=== PATIENT | male | born 1950 | race Caucasian/White ===

== ENCOUNTER 2017-03-16 08:36 | Inpatient (IN) | payer MEDICARE, MEDICAID ==
[2017-03-16 08:36] VITALS: BMI 31.6
[2017-03-16 09:25] LABS: BASO # 0.1 K/uL (0.0-0.2); BASO % 0.6 % (0.0-2.0); EOS % 10.2 % (0.0-4.0); HEMATOCRIT 38.7 % (35.0-51.0); LYMPH # 0.5 K/uL (1.0-4.3); LYMPH % 5.6 % (20.0-40.0); MEAN CELL VOLUME 75.7 fL (80.0-94.0); MEAN CORPUSCULAR HEMOGLOBIN 23.9 pg (27.0-31.0); MEAN CORPUSCULAR HGB CONC 31.6 g/dL (33.0-37.0); MEAN PLATELET VOLUME 9.2 fL (7.2-11.7); MONO # 0.8 K/uL (0.0-0.8); MONO % 8.6 % (0.0-10.0); PLATELET COUNT 198 K/uL (130-400); RED CELL DISTRIBUTION WIDTH 16.6 % (11.5-14.5); WHITE BLOOD COUNT 9.5 K/uL (4.8-10.8)
[2017-03-16 09:33] LABS: CHLORIDE 103 mmol/L (98-107); POTASSIUM 3.8 mmol/L (3.6-5.2); SODIUM 136 mmol/L (132-148)
[2017-03-16 09:35] LABS: AST/SGOT 22 U/L (17-59); BILIRUBIN,TOTAL 0.5 mg/dL (0.2-1.3); CARBON DIOXIDE 19 mmol/L (22-30); GFR AFRICAN-AMERICAN > 60
[2017-03-16 09:36] LABS: ALB/GLOB RATIO 1.3 (1.0-2.1); ALKALINE PHOSPHATASE 57 U/L (38-126); ALT/SGPT 42 U/L (21-72); BLOOD UREA NITROGEN 38 mg/dL (9-20); CALCIUM 8.6 mg/dl (8.6-10.4); GLUCOSE,RANDOM 199 mg/dL (75-110); TOTAL PROTEIN 6.5 g/dL (6.3-8.3)
[2017-03-16] MEDS ORDERED: Albuterol-Ipratrop 3 mg / 0.5 (3 ml) UD INH STA ×2 (09:39→11:46)
[2017-03-16 09:56] LABS: EOSINOPHIL 9 % (0-4); NEUTROPHIL 64 % (50-75); TOTAL CELLS COUNTED 100
[2017-03-16 09:58] LABS: LARGE PLATELETS PRESENT
[2017-03-16] MEDS ORDERED: Albuterol-Ipratrop 3 mg / 0.5 (3 ml) UD ONE (10:04)
--- NOTE | 2017-03-16 10:05 | RAD ---
HISTORY: SOB COMPARISON: Chest x-ray performed 07/17/16 TECHNIQUE: Chest, one view. FINDINGS: LUNGS: Consolidation involving the right jae thorax predominantly within the inferior right upper, the middle, and the right lower lobe. Please note that chest x-ray has limited sensitivity for the detection of pulmonary masses. PLEURA: Small right pleural effusion. No definite pneumothorax . CARDIOVASCULAR: Cardiomegaly. OSSEOUS STRUCTURES: Degenerative changes. VISUALIZED UPPER ABDOMEN: Unremarkable. OTHER FINDINGS: Examination limited by habitus. IMPRESSION: Consolidation involving the right jae thorax predominantly within the inferior right upper, the middle, and the right lower lobe, consistent with pneumonia. Small right pleural effusion. Correlate clinically. Recommend follow-up to resolution.
[2017-03-16] MEDS ORDERED: Azithromycin 500 MG in Sodium Chloride 0.9% 250 ML IVPB STA (10:15)
[2017-03-16] MEDS ORDERED: cefTRIAXone IV 1 gm in Dextros 50 ML IV ONE (10:15)
[2017-03-16] MEDS ORDERED: cefTRIAXone IV 1 gm in Dextros 50 ML IVPB ONE (10:32)
[2017-03-16] MEDS ORDERED: Azithromycin 500mg/250ML NS 250 ML IVPB ONE (10:32)
[2017-03-16 10:38] LABS: VENOUS BLOOD GAS BASE EXCESS -5.8 mmol/L (0.0-2.0); VENOUS BLOOD GAS PCO2 37 mmHg (40-60); VENOUS BLOOD PH 7.33 (7.32-7.43)
--- NOTE | 2017-03-16 10:53 | C.PDOC ---
History Of Present Illness 66 y/o male whose PMHx includes Asthma/COPD, and HTN, brought to the ED by ambulance for evaluation of shortness of breath, cough, chest pain, bilateral shoulder pain and bilateral leg pain which began yesterday. Patient denies fever /chills, back pain, abdominal pain, nausea, vomiting, and diarrhea. Time Seen by Provider: 03/16/17 08:38 Chief Complaint (Nursing): Chest Pain History Per: Patient, EMS History/Exam Limitations: no limitations Onset/Duration Of Symptoms: Hrs Current Symptoms Are (Timing): Still Present Severity: Moderate Quality: "Pain" Associated Symptoms: denies: Nausea Additional History Per: Patient Past Medical History Reviewed: Historical Data, Nursing Documentation, Vital Signs Vital Signs: Last Vital Signs Temp 97.8 F 03/21/17 07:10 Pulse 98 H 03/21/17 07:10 Resp 20 03/21/17 07:10 BP 133/70 03/21/17 09:36 Pulse Ox 93 L 03/21/17 07:10 - Medical History PMH: Arthritis (B/L), Asthma, COPD, Diabetes, Gastritis, HTN, Hypercholesterolemia Surgical History: No Surg Hx - [facility] Procedures CONTRAST ARTERIOGRAM-LEG (08/24/15) INSERT INT PENILE PROSTH (06/20/15) PLAIN RADIOGRAPHY OF AORTA, BI LE ART USING L OSM CONTRAST (07/19/16) Family History: States: CAD - Social History Hx Tobacco Use: No Hx Alcohol Use: No Hx Substance Use: No - Immunization History Hx Tetanus Toxoid Vaccination: No Hx Influenza Vaccination: No Hx Pneumococcal Vaccination: No Review Of Systems Except As Marked, All Systems Reviewed And Found Negative. Constitutional: Negative for: Fever, Chills Cardiovascular: Positive for: Chest Pain. Negative for: Palpitations Respiratory: Positive for: Cough, Shortness of Breath Gastrointestinal: Negative for: Nausea, Vomiting, Abdominal Pain, Diarrhea Musculoskeletal: Positive for: Shoulder Pain (bilateral ), Leg Pain (bilateral ) Physical Exam - Physical Exam Appears: Non-toxic, Other (mildly dyspneic) Skin: Normal Color, Warm, Dry, No Rash Head: Normacephalic Eye(s): bilateral: Normal Inspection Oral Mucosa: Moist Neck: Supple Cardiovascular: Rhythm Regular, Other (+tachycardic) Respiratory: Rales (bilaterally at the bases ), Rhonchi (right lung ), No Wheezing, Other (patient speaking in full sentences ) Gastrointestinal/Abdominal: Normal Exam, Bowel Sounds, Soft, No Tenderness, No Guarding, No Rebound, Other (+obese ) Back: Normal Inspection, No Vertebral Tenderness, No Paraspinal Tenderness Extremity: Normal ROM, No Calf Tenderness, Capillary Refill (< 2 seconds all digits ), No Swelling, No Other (no erythema to b/l lower extremities ) Pulses: Left Dorsalis Pedis: Normal, Right Dorsalis Pedis: Normal Neurological/Psych: Oriented x3 Gait: Steady ED Course And Treatment - Laboratory Results Result Diagrams: 03/21/17 07:17 03/21/17 07:17 ECG: Interpreted By Me, Viewed By Me ECG Rhythm: Sinus Tachycardia, R BBB ECG Interpretation: Abnormal Interpretation Of ECG: Sinus Tachycardia 143bpm. Normal axis. RBBB. No acute ST changes. Rate From EC O2 Sat by Pulse Oximetry: 94 (RA) Pulse Ox Interpretation: Normal - Other Rad CXR X-Ray: Interpreted by Me, Viewed By Me, Read By Radiologist Interpretation: Accession No. : [id number]. Patient Name / ID : GHASSAN EARLY A / [id number]. Exam Date : 03/16/2017 09:11:23 ( Approved ). Study Comment : Sex / Age : M / 66Y. Creator : Marely Maldonado MD. Dictator : Marely Maldonado MD. Padder : Audio Engineer : Marely Maldonado MD. Approver2 : Report Date : 03/16/2017 10:03:44. My Comment : . HISTORY: SOB. COMPARISON: Chest x-ray performed 07/17/16. TECHNIQUE: Chest, one view. FINDINGS: LUNGS: Consolidation involving the right jae thorax predominantly within the inferior right upper, the middle, and the right lower lobe. Please note that chest x-ray has limited sensitivity for the detection of pulmonary masses. PLEURA: Small right pleural effusion. No definite pneumothorax . CARDIOVASCULAR: Cardiomegaly. OSSEOUS STRUCTURES: Degenerative changes. VISUALIZED UPPER ABDOMEN: Unremarkable. OTHER FINDINGS : Examination limited by habitus. IMPRESSION: Consolidation involving the right jae thorax predominantly within the inferior right upper, the middle, and the right lower lobe, consistent with pneumonia. Small right pleural effusion. Correlate clinically. Recommend follow-up to resolution. Progress Note: Patient placed ion Bipap emergently. Blood work, CXR and EKG ordered and greviewed. VQ scan ordered to evaluate for PE (iodine allergy). Patient given PO ASA, IV solumedrol, duoneb treatment, no Lasix given due to borderline low BP. CXR shows right sided pneumonia - IV Rocephin and IV Azithromcycin ordered. - Physician Consult Information Physician Contacted: Evan Levine Outcome Of Conversation: Discussed patient with hospitalist, he agrees with admission for copd, pneumonia. Medical Decision Making Medical Decision Making: differential diagnoses considered: copd/asthma exacerbation, pneumonia, chf exacerbation, VT/ACS, PE, pleural effusion, lung CA Disposition - Disposition Disposition: HOSPITALIZED Disposition Time: 11:47 Condition: STABLE - Clinical Impression Clinical Impression: Pneumonia, COPD exacerbation, Sinus tachycardia - Scribe Statement The provider has reviewed the documentation as recorded by the Scribe (Jennifer Payan) Provider Attestation: All medical record entries made by the Scribe were at my direction and personally dictated by me. I have reviewed the chart and agree that the record accurately reflects my personal performance of the history, physical exam, medical decision making, and the department course for this patient. I have also personally directed, reviewed, and agree with the discharge instructions and disposition. Decision To Admit - Pt Status Changed To: Hospital Disposition Of: Inpatient - Admit Certification Admit to Inpatient:: After my assessment, the patient will require hospitalization for at least two midnights. This is because of the severity of symptoms shown, intensity of services needed, and/or the medical risk in this patient being treated as an outpatient. - InPatient: Physician Admission Certification: I certify that this patient requires 2 or more midnights of care for the following reason:: see notes - . Bed Request Type: Telemetry Admitting Physician: Evan Levine Patient Diagnosis: Pneumonia, COPD exacerbation, Sinus tachycardia
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
[2017-03-16] MEDS ORDERED: Pantoprazole 40 mg EC Tab PO ONE (13:18)
[2017-03-16] MEDS: Pantoprazole 40 mg EC Tab PO SCH (13:18)
--- NOTE | 2017-03-16 14:26 | NM ---
COMPARISON: * 07/17/2016 ventilation-perfusion scan. * 11/03/2015 CT thorax. Summary of findings on the comparison examination: Multifocal right-sided pulmonary opacity, possibly pneumonia. * March 16, 2017. Single-view chest. TECHNIQUE: 6.2 mCi technetium 99-m Xe-133 Gas. 4.1 mCI technetium 99-m MAA administered intravenously. FINDINGS: VENTILATION COMPONENT: Persistent ventilation abnormalities right lung corresponding to multiple prior chest x-rays and CT scans. PERFUSION COMPONENT: Heterogeneous profusion, findings correlate to chest x-ray and are similar to those seen on the prior radionuclide scan. Specifically matched perfusion abnormalities in the right lung. IMPRESSION: Low probability ventilation perfusion scan for pulmonary embolism.
[2017-03-16] MEDS ORDERED: MethylPREDNISolone 40 mg Vial ONE (14:44)
[2017-03-16] MEDS: MethylPREDNISolone 40 mg Vial IVP SCH ×2 (14:50→21:53)
[2017-03-16] MEDS: (Novolin R) Insulin Human Regular 100 units/ml vial SC SCH ×3 (17:54→22:00)
[2017-03-16] MEDS ORDERED: (Novolin R) Insulin Human Regular 100 units/ml vial SC ONE (21:37)
[2017-03-16] MEDS ORDERED: POLYETHYLENE GLYCOL 3350 17 GM/Dose PACKET PO ONE (22:04)
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
[2017-03-17] MEDS: Albuterol-Ipratrop 3 mg / 0.5 (3 ml) UD INH SCH ×7 (00:28→19:17)
[2017-03-17] MEDS: Aritificial Tears (15ml) OU PRN ×2 (05:20→17:59)
[2017-03-17] MEDS: MethylPREDNISolone 40 mg Vial IVP SCH ×2 (05:21→14:12)
[2017-03-17 07:33] LABS: MEAN PLATELET VOLUME 9.6 fL (7.2-11.7); RED CELL DISTRIBUTION WIDTH 16.3 % (11.5-14.5)
[2017-03-17 07:35] LABS: INR 1.3
[2017-03-17 07:44] LABS: BASO % 0.1 % (0.0-2.0); EOS % 0.1 % (0.0-4.0); HEMATOCRIT 35.7 % (35.0-51.0); LYMPH # 0.9 K/uL (1.0-4.3); LYMPH % 4.3 % (20.0-40.0); MEAN CELL VOLUME 75.8 fL (80.0-94.0); MEAN CORPUSCULAR HEMOGLOBIN 23.8 pg (27.0-31.0); MEAN CORPUSCULAR HGB CONC 31.3 g/dL (33.0-37.0); MONO # 1.5 K/uL (0.0-0.8); MONO % 6.9 % (0.0-10.0); PLATELET COUNT 224 K/uL (130-400)
[2017-03-17 07:47] LABS: WHITE BLOOD COUNT 21.3 K/uL (4.8-10.8)
[2017-03-17 07:55] LABS: CHLORIDE 101 mmol/L (98-107)
[2017-03-17 07:56] LABS: POTASSIUM 4.1 mmol/L (3.6-5.2); SODIUM 135 mmol/L (132-148)
[2017-03-17 07:58] LABS: ALB/GLOB RATIO 1.2 (1.0-2.1); ALKALINE PHOSPHATASE 54 U/L (38-126); AST/SGOT 17 U/L (17-59); BILIRUBIN,TOTAL 0.5 mg/dL (0.2-1.3); BLOOD UREA NITROGEN 24 mg/dL (9-20); CARBON DIOXIDE 22 mmol/L (22-30); GFR AFRICAN-AMERICAN > 60; TOTAL PROTEIN 6.4 g/dL (6.3-8.3)
[2017-03-17 07:59] LABS: ALT/SGPT 31 U/L (21-72); CALCIUM 8.6 mg/dl (8.6-10.4); GLUCOSE,RANDOM 305 mg/dL (75-110); MAGNESIUM 2.2 mg/dL (1.6-2.3)
[2017-03-17] MEDS: (Novolin R) Insulin Human Regular 100 units/ml vial SC SCH ×5 (08:16→22:09)
--- NOTE | 2017-03-17 08:47 | RAD ---
HISTORY: pneumonia COMPARISON: 03/16/2017 FINDINGS: LUNGS: Elevated right hemidiaphragm. Biapical pleural thickening with upper lobe granulomatous changes. Prominent airspace consolidative changes in the right mid to lower lung zone with associated small right pleural effusion. Diffuse increased interstitial lung markings. PLEURA: Small to moderate right pleural effusion. CARDIOVASCULAR: Cardiomegaly. OSSEOUS STRUCTURES: Degenerative changes in the spine and shoulders. VISUALIZED UPPER ABDOMEN: Normal. OTHER FINDINGS: None. IMPRESSION: Elevated right hemidiaphragm. Biapical pleural thickening with upper lobe granulomatous changes. Prominent airspace consolidative changes in the right mid to lower lung zone with associated small right pleural effusion. Diffuse increased interstitial lung markings. Small to moderate right pleural effusion. Cardiomegaly.
[2017-03-17] MEDS ORDERED: Azithromycin 500 MG in Sodium Chloride 0.9% 250 ML IVPB SCH (10:00)
[2017-03-17] MEDS: Pantoprazole 40 mg EC Tab PO SCH (10:04)
[2017-03-17] MEDS: Saccharomyces Boulardi 250 mg Cap PO SCH ×2 (10:04→17:59)
[2017-03-17 10:19] LABS: NEUTROPHIL 57 % (50-75); TOTAL CELLS COUNTED 100
[2017-03-17 10:20] LABS: LARGE PLATELETS PRESENT
--- NOTE | 2017-03-17 11:23 | VASCLAB ---
PROCEDURE: Lower Extremity Venous Duplex Exam. HISTORY: Calf tenderness, shortness of breath PRIORS: Last exam 07/17/2016,Normal. TECHNIQUE: Bilateral common femoral, femoral, popliteal and posterior tibial, peroneal and great saphenous veins were evaluated. Flow was assessed with color Doppler, compressibility, assessment of phasic flow and augmentation response. Report prepared by LOLA Rodriguez FINDINGS: RIGHT: 1. Common Femoral Vein: 1.1. Compressibility - Fully compressible: Thrombus - None : Flow - Phasic: Augmentation -Normal: Reflux - None. 2. Femoral Vein: 2.1. Compressibility - Fully compressible: Thrombus - None : Flow - Phasic: Augmentation -Normal: Reflux - None. 3. Popliteal Vein: 3.1. Compressibility - Fully compressible: Thrombus - None : Flow - Phasic: Augmentation -Normal: Reflux - None. 4. Posterior Tibial Vein: 4.1. Compressibility - Fully compressible: Thrombus - None: Flow - Phasic: Augmentation -Normal: Reflux - None. 5. Peroneal Vein: 5.1. Compressibility - Fully compressible: Thrombus - None: Flow - Phasic: Augmentation -Normal: Reflux - None. 6. Great Saphenous Vein: 6.1. Compressibility - Fully compressible: Thrombus - None: Flow - Phasic: Augmentation - Normal: Reflux - None. LEFT: 1. Common Femoral Vein: 1.1. Compressibility - Fully compressible: Thrombus - None: Flow - Phasic: Augmentation -Normal: Reflux - None. 2. Femoral Vein: 2.1. Compressibility - Fully compressible: Thrombus - None: Flow - Phasic: Augmentation -Normal: Reflux - None. 3. Popliteal Vein: 3.1. Compressibility - Fully compressible: Thrombus - None : Flow - Phasic: Augmentation -Normal: Reflux - None. 4. Posterior Tibial Vein: 4.1. Compressibility - Fully compressible: Thrombus - None: Flow - Phasic: Augmentation -Normal: Reflux - None. 5. Peroneal Vein: 5.1. Compressibility - Fully compressible: Thrombus - None: Flow - Phasic: Augmentation -Normal: Reflux - None. 6. Great Saphenous Vein: 6.1. Compressibility - Fully compressible: Thrombus - None: Flow - Phasic: Augmentation - Normal: Reflux - None. OTHER FINDINGS: IMPRESSION: 1. No evidence of deep or superficial venous thrombosis in bilateral lower extremities. Incidental findings: 1. Patent right superficial femoral artery stent. 2. Normal arterial flow noted distally at bilateral tibial arteries, with triphasic waveforms.
[2017-03-17] MEDS: Imipenem/Cilastatin 250 MG in Sodium Chloride 100 ML IVPB SCH ×2 (12:08→17:16)
[2017-03-17 15:06] LABS: CHOLESTEROL 141 mg/dL (0-199)
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
--- NOTE | 2017-03-17 18:24 | CP.PCM.PN ---
<Jose Nicolas - Last Filed: 03/17/17 18:21> Subjective - Date & Time of Evaluation Date of Evaluation: 03/17/17 Time of Evaluation: 09:14 - Subjective Subjective: Pt seen and examined. Pt reports that his shortness of breath has improved. Pt complains of pain in his calves bilaterally. Pt denies fever, chills, chest pain , nausea, and vomiting. Objective - Vital Signs/Intake and Output Vital Signs (last 24 hours): Temp Pulse Resp BP Pulse Ox 97.8 F 102 H 20 174/81 H 94 L 03/17/17 15:08 03/17/17 15:08 03/17/17 15:08 03/17/17 15:08 03/17/17 15:08 Intake and Output: 03/17/17 03/17/17 06:59 18:59 Intake Total 480 Output Total 1100 Balance -620 - Medications Medications: Current Medications Albuterol/Ipratropium (Duoneb 3 Mg/0.5 Mg (3 Ml) Ud) 3 ml INH RQ4 [facility] Last Admin: 03/17/17 15:49 Dose: 3 ml Artificial Tears (Artificial Tears) 1 ml OU Q4 PRN PRN Reason: Dry eyes Last Admin: 03/17/17 17:59 Dose: 1 drop Aspirin (Ecotrin) 81 mg PO DAILY [facility] Last Admin: 03/17/17 10:05 Dose: 81 mg Diphenhydramine HCl (Benadryl) 50 mg IVP ONCE ONE Stop: 03/18/17 08:01 Furosemide (Lasix) 20 mg PO DAILY [facility] Heparin Sodium (Porcine) (Heparin) 5,000 units SC Q8 [facility] Last Admin: 03/17/17 05:21 Dose: 5,000 units Imipenem/Cilastatin Sodium 250 (mg/ Sodium Chloride) 100 mls @ 100 mls/hr IVPB Q6H [facility] Last Admin: 03/17/17 17:16 Dose: 100 mls/hr Vancomycin HCl 1,000 mg/ (Sodium Chloride) 250 mls @ 166.6 mls/hr IVPB Q12H [facility] Last Admin: 03/17/17 13:22 Dose: 166.6 mls/hr Insulin Human Regular (Novolin R) 0 unit SC ACHS [facility] PRN Reason: Protocol Last Admin: 03/17/17 18:01 Dose: 6 unit Methylprednisolone (Solu-Medrol) 40 mg IVP ONCE ONE Stop: 03/17/17 20:01 Methylprednisolone (Solu-Medrol) 40 mg IVP ONCE ONE Stop: 03/18/17 02:01 Methylprednisolone (Solu-Medrol) 40 mg IVP ONCE ONE Stop: 03/18/17 08:01 Ondansetron HCl (Zofran Inj) 4 mg IVP Q6 PRN PRN Reason: Nausea/Vomiting Pantoprazole Sodium (Protonix Ec Tab) 40 mg PO DAILY [facility] Last Admin: 03/17/17 10:04 Dose: 40 mg Rosuvastatin Calcium (Crestor) 10 mg PO HS [facility] Last Admin: 03/16/17 21:53 Dose: 10 mg Saccharomyces Boulardii (Florastor) 250 mg PO BID [facility] Last Admin: 03/17/17 17:59 Dose: 250 mg Zolpidem Tartrate (Ambien) 5 mg PO HS PRN PRN Reason: Insomnia Last Admin: 03/16/17 22:43 Dose: 5 mg - Labs Labs: 03/17/17 07:08 03/17/17 07:08 PT 14.2 SECONDS (9.7-12.2) H 03/17/17 07:08 INR 1.3 03/17/17 07:08 APTT 28 SECONDS (21-34) 03/17/17 07:08 - Constitutional Appears: No Acute Distress - Head Exam Head Exam: ATRAUMATIC, NORMOCEPHALIC - Eye Exam Eye Exam: EOMI, PERRL - ENT Exam ENT Exam: Mucous Membranes Moist. absent: Mucous Membranes Dry - Respiratory Exam Respiratory Exam: Decreased Breath Sounds. absent: Rhonchi, Wheezes Additional comments: Decreased right lung sounds - Cardiovascular Exam Cardiovascular Exam: Gallop, +S1, +S2. absent: Rubs, Murmur - GI/Abdominal Exam GI & Abdominal Exam: Distended, Firm. absent: Tenderness Additional comments: Fluid shift - Extremities Exam Extremities Exam: Full ROM. absent: Pedal Edema - Neurological Exam Neurological Exam: Alert, Awake, Oriented x3 - Psychiatric Exam Psychiatric exam: Normal Affect, Normal Mood - Skin Skin Exam: Normal Color, Warm Assessment and Plan - Assessment and Plan (Free Text) Assessment: Sepsis: WBC 21.3 Tachycardic at 114 bpm Band neutrophils -34 Lactic Acid 2.2 Procalcitonin 14.7 Sputum cultures pending Blood cultures no growth after 24 hours Primaxin 250 mg IV q6h Vancomycin 1 gm IV q12h Pneumonia: Initial CXR - consolidation involving Right jae diaphragm (inferior RUL, RML, and RLL) and small right pleural effusion (see full report) Repeat CXR - biapical pleural thickening, prominent right air space consolidative changes inthe right mid to lower lung zone with associated small right pleural effusion. Diffuse increased interstitial lung markings (please see full report) WBC 21.3 Tachycardic at 114 bpm Band neutrophils -34 Lactic Acid 2.2 Procalcitonin 14.7 Primaxin 250 mg IV q6h Vancomycin 1 gm IV q12h Chest/Abd/Pelvis CT w/o contrast pending Infectious Disease, Dr. Pan, consulted. Help appreciated. Ascities: Chest/Abd/Pelvis CT w/o contrast pending Elevated D-Dimer: D-dimer - 862 V/Q scan - low probability for PE (please see full report) B/L lower extremity venous dopplers- no evidence of DVTs bilaterally (please see full report) Peripheral Vascular Disease: Vascular Surgery, Dr. Del Real, consulted. Help appreciated. Angiography ileofemoral runoff 9 am tomorrow Hx of allergy to dye, pt premedicated as per [place] protocol with IV solumedrol and benadryl CHF: Cardiology, Dr. Clark, consulted. Help appreciated. Echo pending Troponins 0.0220 x 1 Pro-BNP 48 Lasin 20 mg po qd COPD: Duonebs prn HTN: Home medications held due to sepsis; maintain blood pressure Diabetes Mellitus: Insulin sliding scale Accuchecks Coronary artery disease: ASA 81 mg PO daily Crestor 10 mg PO HS Hyperlipidemia: Crestor 10 mg PO HS Prophylactic Measures: DVT: Heparin 5,000 units SC Q8H, SCDs contraindicated due to lower extremity pain GI: Protonix 40 mg PO daily <Emory Dobbins - Last Filed: 03/18/17 09:13> Objective - Vital Signs/Intake and Output Vital Signs (last 24 hours): Temp Pulse Resp BP Pulse Ox 98 F 99 H 20 172/95 H 92 L 03/18/17 07:10 03/18/17 07:10 03/18/17 07:10 03/18/17 07:10 03/18/17 07:10 - Medications Medications: Current Medications Albuterol/Ipratropium (Duoneb 3 Mg/0.5 Mg (3 Ml) Ud) 3 ml INH RQ4 [facility] Last Admin: 03/18/17 08:58 Dose: 3 ml Artificial Tears (Artificial Tears) 1 ml OU Q4 PRN PRN Reason: Dry eyes Last Admin: 03/17/17 17:59 Dose: 1 drop Aspirin (Ecotrin) 81 mg PO DAILY [facility] Last Admin: 03/17/17 10:05 Dose: 81 mg Furosemide (Lasix) 20 mg PO DAILY [facility] Last Admin: 03/17/17 19:12 Dose: 20 mg Heparin Sodium (Porcine) (Heparin) 5,000 units SC Q8 [facility] Last Admin: 03/18/17 05:21 Dose: Not Given Vancomycin HCl 1,000 mg/ (Sodium Chloride) 250 mls @ 166.6 mls/hr IVPB Q12H [facility] Last Admin: 03/18/17 00:04 Dose: 166.6 mls/hr Azithromycin 500 mg/ Sodium (Chloride) 250 mls @ 166.667 mls/hr IVPB Q24H [facility] Imipenem/Cilastatin Sodium 500 (mg/ Sodium Chloride) 100 mls @ 100 mls/hr IVPB Q6H [facility] Last Admin: 03/18/17 02:42 Dose: 100 mls/hr Insulin Human Regular (Novolin R) 0 unit SC ACHS [facility] PRN Reason: Protocol Last Admin: 03/18/17 08:09 Dose: 8 unit Ondansetron HCl (Zofran Inj) 4 mg IVP Q6 PRN PRN Reason: Nausea/Vomiting Pantoprazole Sodium (Protonix Ec Tab) 40 mg PO DAILY [facility] Last Admin: 03/17/17 10:04 Dose: 40 mg Rosuvastatin Calcium (Crestor) 10 mg PO HS [facility] Last Admin: 03/17/17 21:24 Dose: 10 mg Saccharomyces Boulardii (Florastor) 250 mg PO BID [facility] Last Admin: 03/17/17 17:59 Dose: 250 mg Zolpidem Tartrate (Ambien) 5 mg PO HS PRN PRN Reason: Insomnia Last Admin: 03/17/17 22:25 Dose: 5 mg - Labs Labs: 03/18/17 06:35 03/18/17 06:35 PT 14.2 SECONDS (9.7-12.2) H 03/17/17 07:08 INR 1.3 03/17/17 07:08 APTT 28 SECONDS (21-34) 03/17/17 07:08 Attending/Attestation - Attestation I have personally seen and examined this patient.: Yes I have fully participated in the care of the patient.: Yes I have reviewed all pertinent clinical information, including history, physical exam and plan: Yes Notes (Text): Medical Attending: Patient was seen and examined by me. Agree with the above note by the resident Patient was changed abx to Vancomycimn and Primaxin IV after it was noted an increase in the bademia and WBC count. His blood pressure was stable when we saw , however we will need to follow lactic acid checks as well as ABGs. We ordered a CT of the chest, as well as abdomen and pelvis after we noted that the patient likley ascities on the exam. However he did not report abdominal pain on exam. We will consider paracentesis. Will need ID evaluation thank you Emory Dobbins
[2017-03-17] MEDS ORDERED: Bisacodyl 5mg EC Tab PO ONE (18:53)
[2017-03-17] MEDS ORDERED: MethylPREDNISolone 40 mg Vial IVP ONE (20:00)
[2017-03-17] MEDS ORDERED: POLYETHYLENE GLYCOL 3350 17 GM/Dose PACKET PO STA (20:37)
[2017-03-18] MEDS: Albuterol-Ipratrop 3 mg / 0.5 (3 ml) UD INH SCH ×6 (00:48→20:48)
[2017-03-18] MEDS ORDERED: MethylPREDNISolone 40 mg Vial IVP ONE ×2 (02:00→08:00)
[2017-03-18 06:45] LABS: HEMATOCRIT 35.3 % (35.0-51.0); LYMPH # 0.9 K/uL (1.0-4.3); LYMPH % 4.3 % (20.0-40.0); MEAN CELL VOLUME 75.6 fL (80.0-94.0); MEAN CORPUSCULAR HGB CONC 31.7 g/dL (33.0-37.0); MEAN PLATELET VOLUME 9.8 fL (7.2-11.7); MONO # 1.2 K/uL (0.0-0.8); PLATELET COUNT 242 K/uL (130-400); RED CELL DISTRIBUTION WIDTH 16.7 % (11.5-14.5); WHITE BLOOD COUNT 20.8 K/uL (4.8-10.8)
[2017-03-18 06:51] LABS: CHLORIDE 101 mmol/L (98-107); SODIUM 134 mmol/L (132-148)
[2017-03-18 06:52] LABS: POTASSIUM 4.8 mmol/L (3.6-5.2)
[2017-03-18 06:53] LABS: GFR AFRICAN-AMERICAN > 60
[2017-03-18 06:54] LABS: ALB/GLOB RATIO 1.1 (1.0-2.1); ALKALINE PHOSPHATASE 68 U/L (38-126); ALT/SGPT 46 U/L (21-72); AST/SGOT 17 U/L (17-59); BILIRUBIN,TOTAL 0.7 mg/dL (0.2-1.3); BLOOD UREA NITROGEN 26 mg/dL (9-20); CARBON DIOXIDE 25 mmol/L (22-30); PHOSPHOROUS 2.7 mg/dL (2.5-4.5); TOTAL PROTEIN 6.4 g/dL (6.3-8.3)
[2017-03-18 06:55] LABS: CALCIUM 8.3 mg/dl (8.6-10.4); MAGNESIUM 2.2 mg/dL (1.6-2.3)
[2017-03-18 06:59] LABS: GLUCOSE,RANDOM 406 mg/dL (75-110)
--- NOTE | 2017-03-18 07:18 | CP.PCM.PN ---
Subjective - Date & Time of Evaluation Date of Evaluation: 03/17/17 Time of Evaluation: 07:00 - Subjective Subjective: VASCULAR SURGERY PROGRESS NOTE FOR DR. CHAUHAN Patient seen and examined at bedside. He states that he has pain in both of his legs but Left more than right. Objective - Vital Signs/Intake and Output Vital Signs (last 24 hours): Temp Pulse Resp BP Pulse Ox 98.1 F 100 H 20 165/84 H 96 03/17/17 23:55 03/17/17 23:55 03/17/17 23:55 03/17/17 23:55 03/17/17 23:55 - Medications Medications: Current Medications Albuterol/Ipratropium (Duoneb 3 Mg/0.5 Mg (3 Ml) Ud) 3 ml INH RQ4 [facility] Last Admin: 03/18/17 04:37 Dose: Not Given Artificial Tears (Artificial Tears) 1 ml OU Q4 PRN PRN Reason: Dry eyes Last Admin: 03/17/17 17:59 Dose: 1 drop Aspirin (Ecotrin) 81 mg PO DAILY [facility] Last Admin: 03/17/17 10:05 Dose: 81 mg Diphenhydramine HCl (Benadryl) 50 mg IVP ONCE ONE Stop: 03/18/17 08:01 Furosemide (Lasix) 20 mg PO DAILY [facility] Last Admin: 03/17/17 19:12 Dose: 20 mg Heparin Sodium (Porcine) (Heparin) 5,000 units SC Q8 [facility] Last Admin: 03/18/17 05:21 Dose: Not Given Vancomycin HCl 1,000 mg/ (Sodium Chloride) 250 mls @ 166.6 mls/hr IVPB Q12H [facility] Last Admin: 03/18/17 00:04 Dose: 166.6 mls/hr Azithromycin 500 mg/ Sodium (Chloride) 250 mls @ 166.667 mls/hr IVPB Q24H [facility] Imipenem/Cilastatin Sodium 500 (mg/ Sodium Chloride) 100 mls @ 100 mls/hr IVPB Q6H [facility] Last Admin: 03/18/17 02:42 Dose: 100 mls/hr Insulin Human Regular (Novolin R) 0 unit SC ACHS [facility] PRN Reason: Protocol Last Admin: 03/17/17 22:09 Dose: 4 unit Methylprednisolone (Solu-Medrol) 40 mg IVP ONCE ONE Stop: 03/18/17 08:01 Ondansetron HCl (Zofran Inj) 4 mg IVP Q6 PRN PRN Reason: Nausea/Vomiting Pantoprazole Sodium (Protonix Ec Tab) 40 mg PO DAILY [facility] Last Admin: 03/17/17 10:04 Dose: 40 mg Rosuvastatin Calcium (Crestor) 10 mg PO HS [facility] Last Admin: 03/17/17 21:24 Dose: 10 mg Saccharomyces Boulardii (Florastor) 250 mg PO BID [facility] Last Admin: 03/17/17 17:59 Dose: 250 mg Zolpidem Tartrate (Ambien) 5 mg PO HS PRN PRN Reason: Insomnia Last Admin: 03/17/17 22:25 Dose: 5 mg - Labs Labs: 03/18/17 06:35 03/18/17 06:35 PT 14.2 SECONDS (9.7-12.2) H 03/17/17 07:08 INR 1.3 03/17/17 07:08 APTT 28 SECONDS (21-34) 03/17/17 07:08 Assessment and Plan - Assessment and Plan (Free Text) Assessment: 66yo M with PMHx of PAD who has bilateral leg pain - Angiography ileofemoral runoff Tues AM - Due to pts hx of allergy, was premedicated with IV solumedrol and benadryl - Discussed plan with Dr. Gt Ramon PGY-2
--- NOTE | 2017-03-18 07:53 | CP.PCM.PN ---
<Gm Hernandez - Last Filed: 03/18/17 11:39> Subjective - Date & Time of Evaluation Date of Evaluation: 03/18/17 Time of Evaluation: 07:52 - Subjective Subjective: Cardiology Progress Note Dr. Clark Patient seen and examined at the bedside. No acute distress. No acute events overnight. Nursing staff reports no issues. The patient is resting comfortably in bed at this time. The patient reports abdominal pain and constipation. The patient denies all cardiopulmonary complaints. 12 point review of systems was preformed and the patient denied all complaints at this time aside from abdominal pain. Objective - Vital Signs/Intake and Output Vital Signs (last 24 hours): Temp Pulse Resp BP Pulse Ox 98.1 F 100 H 20 165/84 H 96 03/17/17 23:55 03/17/17 23:55 03/17/17 23:55 03/17/17 23:55 03/17/17 23:55 - Medications Medications: Current Medications Albuterol/Ipratropium (Duoneb 3 Mg/0.5 Mg (3 Ml) Ud) 3 ml INH RQ4 [facility] Last Admin: 03/18/17 04:37 Dose: Not Given Artificial Tears (Artificial Tears) 1 ml OU Q4 PRN PRN Reason: Dry eyes Last Admin: 03/17/17 17:59 Dose: 1 drop Aspirin (Ecotrin) 81 mg PO DAILY [facility] Last Admin: 03/17/17 10:05 Dose: 81 mg Diphenhydramine HCl (Benadryl) 50 mg IVP ONCE ONE Stop: 03/18/17 08:01 Furosemide (Lasix) 20 mg PO DAILY [facility] Last Admin: 03/17/17 19:12 Dose: 20 mg Heparin Sodium (Porcine) (Heparin) 5,000 units SC Q8 [facility] Last Admin: 03/18/17 05:21 Dose: Not Given Vancomycin HCl 1,000 mg/ (Sodium Chloride) 250 mls @ 166.6 mls/hr IVPB Q12H [facility] Last Admin: 03/18/17 00:04 Dose: 166.6 mls/hr Azithromycin 500 mg/ Sodium (Chloride) 250 mls @ 166.667 mls/hr IVPB Q24H [facility] Imipenem/Cilastatin Sodium 500 (mg/ Sodium Chloride) 100 mls @ 100 mls/hr IVPB Q6H [facility] Last Admin: 03/18/17 02:42 Dose: 100 mls/hr Insulin Human Regular (Novolin R) 0 unit SC ACHS [facility] PRN Reason: Protocol Last Admin: 03/17/17 22:09 Dose: 4 unit Methylprednisolone (Solu-Medrol) 40 mg IVP ONCE ONE Stop: 03/18/17 08:01 Ondansetron HCl (Zofran Inj) 4 mg IVP Q6 PRN PRN Reason: Nausea/Vomiting Pantoprazole Sodium (Protonix Ec Tab) 40 mg PO DAILY [facility] Last Admin: 03/17/17 10:04 Dose: 40 mg Rosuvastatin Calcium (Crestor) 10 mg PO HS [facility] Last Admin: 03/17/17 21:24 Dose: 10 mg Saccharomyces Boulardii (Florastor) 250 mg PO BID [facility] Last Admin: 03/17/17 17:59 Dose: 250 mg Zolpidem Tartrate (Ambien) 5 mg PO HS PRN PRN Reason: Insomnia Last Admin: 03/17/17 22:25 Dose: 5 mg - Labs Labs: 03/18/17 06:35 03/18/17 06:35 PT 14.2 SECONDS (9.7-12.2) H 03/17/17 07:08 INR 1.3 03/17/17 07:08 APTT 28 SECONDS (21-34) 03/17/17 07:08 - Additional Findings Additional findings: - Constitutional Appears: No Acute Distress - Head Exam Head Exam: ATRAUMATIC, NORMAL INSPECTION, NORMOCEPHALIC - Eye Exam Eye Exam: EOMI, Normal appearance - ENT Exam ENT Exam: Mucous Membranes Moist - Neck Exam Neck exam: Positive for: Full Rom, Normal Inspection. Negative for: Lymphadenopathy - Respiratory Exam Respiratory Exam: Decreased Breath Sounds (Decreased on the Right Base > Mid lung field ), NORMAL BREATHING PATTERN. absent: Accessory Muscle Use, Clear to Auscultation Bilateral, Rhonchi, Wheezes, Respiratory Distress - Cardiovascular Exam Cardiovascular Exam: REGULAR RHYTHM, RRR, +S1, +S2. absent: Diastolic murmur, Systolic Murmur - GI/Abdominal Exam GI & Abdominal Exam: Distended, Normal Bowel Sounds, Soft. absent: Bruit, Guarding, Rebound, Rigid, Tenderness - Extremities Exam Extremities exam: Positive for: calf tenderness (B/L), normal inspection, pedal edema (1+ B/L), tenderness, pedal pulses present. Negative for: joint swelling - Neurological Exam Neurological exam: Alert, CN II-XII Intact, Oriented x3, Reflexes Normal - Skin Skin Exam: Dry, Intact, Normal Color, Warm Assessment and Plan (1) Diastolic CHF Assessment & Plan: Lasix 20mg IV daily Repeat echo ordered- pending Sd hose stockings Continue: - aspirin 81mg po daily - Crestor 10mg po hs 03/16/17 EKG- Sinus Tachycardia, Normal FL, widened QRS and prolonged QTc, Right axis, Right bundle branch block 07/17/16 Echo- LV EF 75% 08/19/15 Echo- LV EF 80% diastolic dysfunction Case discussed with Dr. Amber Hernandez PGY1 Status: h <Lemuel Clark - Last Filed: 04/28/17 18:03> Objective - Vital Signs/Intake and Output Vital Signs (last 24 hours): Temp Pulse Resp BP Pulse Ox 97.8 F 98 H 20 133/70 94 L 03/21/17 07:10 03/21/17 07:10 03/21/17 07:10 03/21/17 09:36 03/23/17 09:19 - Labs Labs: 03/21/17 07:17 03/21/17 07:17 PT 14.2 SECONDS (9.7-12.2) H 03/17/17 07:08 INR 1.3 03/17/17 07:08 APTT 28 SECONDS (21-34) 03/17/17 07:08 Attending/Attestation - Attestation I have personally seen and examined this patient.: Yes I have fully participated in the care of the patient.: Yes I have reviewed all pertinent clinical information, including history, physical exam and plan: Yes Notes (Text): 04/28/17 18:03 resting comfortably tolerating PO
[2017-03-18] MEDS ORDERED: DiphenhydrAMINE 50 mg/ml Inj IVP ONE (08:00)
--- NOTE | 2017-03-18 08:00 | CARD ---
APPROVED REPORT EKG Measurement Heart [id number] [place] 122P29 [id number] <Conclusion> Sinus tachycardia Right bundle branch block Abnormal ECG
--- NOTE | 2017-03-18 08:00 | CARD ---
APPROVED REPORT EKG Measurement Heart [id number] [place] 122P39 [id number] <Conclusion> Sinus tachycardia Possible Left atrial enlargement Right bundle branch block Abnormal ECG
[2017-03-18] MEDS: (Novolin R) Insulin Human Regular 100 units/ml vial SC SCH ×4 (08:09→21:48)
[2017-03-18] MEDS ORDERED: Iodixanol 320 mg/ml 150 ml Bottle IV ONE (08:15)
[2017-03-18] MEDS: Aritificial Tears (15ml) OU PRN ×2 (10:04→18:50)
[2017-03-18] MEDS: Pantoprazole 40 mg EC Tab PO SCH (10:05)
[2017-03-18] MEDS: Saccharomyces Boulardi 250 mg Cap PO SCH ×2 (10:05→17:59)
[2017-03-18 10:11] LABS: ABG ALLEN TEST PO; DRAW SITE LR
[2017-03-18 10:37] LABS: EOSINOPHIL 1 % (0-4); NEUTROPHIL 71 % (50-75); TOTAL CELLS COUNTED 100
--- NOTE | 2017-03-18 12:37 | CT ---
PROCEDURE: CT Angiography Abdomen, Pelvis and Lower Extremity with Contrast HISTORY: claudication COMPARISON: None. TECHNIQUE: Technique: CT angiography of the abdomen, pelvis and bilateral lower extremities performed in the arterial phase of enhancement. Coronal and sagittal reformats, and well as rotating MIP images of the vessels generated at the workstation. Intravenous contrast dose: 150 milliliters Visipaque 320 Radiation dose: Total exam DLP = 2575.55 MGy-cm. This CT exam was performed using one or more of the following dose reduction techniques: Automated exposure control, adjustment of the mA and/or kV according to patient size, and/or use of iterative reconstruction technique. FINDINGS: CT ANGIOGRAPHY: ABDOMINAL AORTA:: Unremarkable MAJOR AORTIC BRANCHES: Celiac [place]: Mild calcific plaque with no stenosis. Superior mesenteric artery: Moderate calcific plaque with about 40 percent stenosis proximal SFA including and origin. Inferior mesenteric artery: Unremarkable. Renal arteries: Unremarkable. PELVIC ARTERIES: Right Common Iliac: Mild calcific plaque otherwise unremarkable Right External Iliac: Unremarkable. Right Internal Iliac: Unremarkable. Left Common Iliac: Mild calcific plaque otherwise unremarkable Left External Iliac: Unremarkable. Left Internal Iliac: Unremarkable. RIGHT LOWER EXTREMITY ARTERIES: Right Common Femoral: Unremarkable. Right Superficial Femoral: Minimal stenosis throughout the SFA. Distal SFA stent is patent. There is mild InStent stenosis. Right Profunda Femoris: Unremarkable. Right Popliteal:Unremarkable. Right Anterior Tibial: Patent. Slight tortuosity in the proximal segment. Right Tibioperoneal Trunk: Unremarkable. Right Posterior Tibial: Unremarkable. Right Peroneal: Unremarkable. Right dorsalis pedis : Unremarkable. LEFT LOWER EXTREMITY ARTERIES: Left Common Femoral: Unremarkable. Left Superficial Femoral: SFA is diffusely mildly stenotic. Distal SFA stent is patent with no significant InStent stenosis. Left Profunda Femoris: Unremarkable. Left Popliteal: Unremarkable Left Anterior Tibial: Mild calcific plaque in the proximal segment which limits its evaluation. Otherwise patent. Left Tibioperoneal Trunk: Unremarkable. Left Posterior Tibial: Unremarkable. Left Peroneal: Multiple areas of calcific plaque with possible stenosis. Peroneal artery is patent distally. Left Dorsalis pedis: Unremarkable. NON-ANGIOGRAPHIC ASPECT OF THE EXAM: LOWER THORAX: Patchy airspace opacity in the right lower lobe. LIVER: Unremarkable. No gross lesion or ductal dilatation. GALLBLADDER AND BILE DUCTS: Unremarkable. PANCREAS: Unremarkable. No gross lesion or ductal dilatation. SPLEEN: Unremarkable. ADRENALS: Unremarkable. No mass. KIDNEYS AND URETERS: Unremarkable. No hydronephrosis. No solid mass. STOMACH AND BOWEL: Unremarkable. No obstruction. No gross mural thickening. APPENDIX: Normal appendix. PERITONEUM: Unremarkable. No free fluid. No free air. LYMPH NODES: Unremarkable. No enlarged lymph nodes. BLADDER: Unremarkable. REPRODUCTIVE: Unremarkable. BONES: No acute fracture. OTHER FINDINGS: None. IMPRESSION: CT ABDOMEN/PELVIS: 1. Unremarkable aorta and pelvic arteries. . 2. Moderate stenosis of the proximal and superior mesenteric artery. RIGHT LOWER EXTREMITY CT ANGIOGRAM 1. Distal SFA stent is patent with mild InStent stenosis. 2. Popliteal artery, common femoral artery, profunda femoral artery are normal. 3. Runoff shows 3 vessel runoff. LEFT LOWER EXTREMITY CT ANGIOGRAM 1. Distal SFA stent is patent with mild instent. 2. Remarkable common femoral artery and popliteal artery. 3. Runoff shows patent anterior tibial artery and posterior tibial artery. Possible areas of stenosis within the proximal peroneal artery. Calcific plaque in this area limits evaluation
--- NOTE | 2017-03-18 12:39 | CT ---
CT chest, abdomen, and pelvis without IV contrast Indication: Pneumonia, abdominal ascites Technique: Contiguous axial images of the chest, abdomen, and pelvis without oral or IV contrast. Coronal and Sagittal reformats generated and reviewed. This CT exam was performed using 1 or more of the falling dose reduction techniques: Automated exposure control, adjustment of the MAA and/or kV according to patient size, and/or use of iterative reconstruction technique. Radiation dose: Total exam DLP = 1629.51 MGy-cm. Comparison: Abdominal ultrasound performed 07/18/16 Findings: Visualized portions of the inferior thyroid gland appear unremarkable. The unenhanced mediastinal and hilar vascular structures appear grossly unremarkable. The heart appears within normal limits of size. Coronary artery calcifications. There is bullous change at the apices. Extensive patchy infiltrates throughout the right jae thorax. Bibasilar atelectasis/infiltrates. Small hiatal hernia/distal esophageal wall thickening. Hepatomegaly. Left hepatic lobe calcifications, likely granuloma. Borderline splenomegaly. The unenhanced adrenal glands and pancreas appear unremarkable. Contracted gallbladder appears otherwise unremarkable. No evidence of hydronephrosis or obstructing calculus. The stomach is nondistended. Lack of oral contrast limits evaluation for bowel pathology. The bowel loops appear within normal limits of caliber without evidence of intestinal obstruction. The appendix appears within normal limits of caliber. No secondary signs of acute appendicitis. There is no definite free air. The prostate gland measures approximately 4.7 x 5.4 cm and contains calcifications. Penile prosthesis. The urinary bladder appears unremarkable. No abdominal or pelvic ascites. Inferior to the scapula at approximately the level of the right 7th rib is a 2.8 x 5.0 cm right axillary mass. Abnormal appearance of the right 6th rib, indeterminate. Degenerative changes of the spine. Impression: Bullous change at the apices. Extensive patchy infiltrates throughout the right jae thorax. Bibasilar atelectasis/infiltrates. Recommend clinical correlation and follow-up to resolution. Indeterminate 2.8 x 5.0 cm right axillary mass located inferior to the scapula at approximately the level of the right 7th rib. Abnormal appearance of the right 6th rib, indeterminate. Hepatosplenomegaly. No abdominal or pelvic ascites evident. Enlarged prostate gland. Recommend correlation with PSA. Additional findings as above.
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
--- NOTE | 2017-03-18 15:33 | CP.PCM.PN ---
<Jose Nicolas - Last Filed: 03/18/17 15:30> Subjective - Date & Time of Evaluation Date of Evaluation: 03/18/17 Time of Evaluation: 07:19 - Subjective Subjective: Pt seen and examined. Pt reports that he is feeling better today but has pain in his legs bilaterally and complains of constipation. Pt denies fever, chills, chest pain, shortness of breath, nausea, and vomiting. Objective - Vital Signs/Intake and Output Vital Signs (last 24 hours): Temp Pulse Resp BP Pulse Ox 98 F 99 H 20 172/95 H 92 L 03/18/17 07:10 03/18/17 07:10 03/18/17 07:10 03/18/17 10:05 03/18/17 07:10 - Medications Medications: Current Medications Albuterol/Ipratropium (Duoneb 3 Mg/0.5 Mg (3 Ml) Ud) 3 ml INH RQ4 [facility] Last Admin: 03/18/17 12:02 Dose: 3 ml Artificial Tears (Artificial Tears) 1 ml OU Q4 PRN PRN Reason: Dry eyes Last Admin: 03/18/17 10:04 Dose: 1 drop Aspirin (Ecotrin) 81 mg PO DAILY [facility] Last Admin: 03/18/17 10:05 Dose: 81 mg Docusate Sodium (Colace) 100 mg PO DAILY [facility] Furosemide (Lasix) 20 mg IVP DAILY [facility] Heparin Sodium (Porcine) (Heparin) 5,000 units SC Q8 [facility] Last Admin: 03/18/17 14:38 Dose: Not Given Hydrochlorothiazide (Microzide) 12.5 mg PO DAILY [facility] Last Admin: 03/18/17 10:06 Dose: 12.5 mg Vancomycin HCl 1,000 mg/ (Sodium Chloride) 250 mls @ 166.6 mls/hr IVPB Q12H [facility] Last Admin: 03/18/17 13:14 Dose: 166.6 mls/hr Azithromycin 500 mg/ Sodium (Chloride) 250 mls @ 166.667 mls/hr IVPB Q24H [facility] Imipenem/Cilastatin Sodium 500 (mg/ Sodium Chloride) 100 mls @ 100 mls/hr IVPB Q6H [facility] Last Admin: 03/18/17 12:55 Dose: Not Given Insulin Human Regular (Novolin R) 0 unit SC ACHS [facility] PRN Reason: Protocol Last Admin: 03/18/17 12:32 Dose: 12 unit Losartan Potassium (Cozaar) 50 mg PO DAILY [facility] Last Admin: 03/18/17 10:22 Dose: 50 mg Ondansetron HCl (Zofran Inj) 4 mg IVP Q6 PRN PRN Reason: Nausea/Vomiting Pantoprazole Sodium (Protonix Ec Tab) 40 mg PO DAILY [facility] Last Admin: 03/18/17 10:05 Dose: 40 mg Rosuvastatin Calcium (Crestor) 10 mg PO HS [facility] Last Admin: 03/17/17 21:24 Dose: 10 mg Saccharomyces Boulardii (Florastor) 250 mg PO BID [facility] Last Admin: 03/18/17 10:05 Dose: 250 mg Zolpidem Tartrate (Ambien) 5 mg PO HS PRN PRN Reason: Insomnia Last Admin: 03/17/17 22:25 Dose: 5 mg - Labs Labs: 03/18/17 06:35 03/18/17 06:35 PT 14.2 SECONDS (9.7-12.2) H 03/17/17 07:08 INR 1.3 03/17/17 07:08 APTT 28 SECONDS (21-34) 03/17/17 07:08 - Constitutional Appears: No Acute Distress - Head Exam Head Exam: ATRAUMATIC, NORMOCEPHALIC - Eye Exam Eye Exam: EOMI, PERRL - ENT Exam ENT Exam: Mucous Membranes Moist. absent: Mucous Membranes Dry - Respiratory Exam Respiratory Exam: Decreased Breath Sounds Additional comments: Decreased breath sounds on right lung - Cardiovascular Exam Cardiovascular Exam: +S1, +S2. absent: Gallop, Rubs - GI/Abdominal Exam GI & Abdominal Exam: Distended, Firm. absent: Tenderness - Extremities Exam Extremities Exam: absent: Pedal Edema - Neurological Exam Neurological Exam: Alert, Awake, Oriented x3 - Psychiatric Exam Psychiatric exam: Normal Affect, Normal Mood - Skin Skin Exam: Normal Color, Warm Assessment and Plan - Assessment and Plan (Free Text) Assessment: Sepsis: WBC 20.8 Tachycardic at 106 bpm Band neutrophils -21, improved Lactic Acid worsened from 2.2 to 2.8 Procalcitonin 14.7 Sputum cultures pending Blood cultures no growth after 48 hours Primaxin 250 mg IV q6h Vancomycin 1 gm IV q12h Azithromycin 500 mg IV qd Pneumonia: Initial CXR - consolidation involving Right jae diaphragm (inferior RUL, RML, and RLL) and small right pleural effusion (see full report) Repeat CXR - biapical pleural thickening, prominent right air space consolidative changes inthe right mid to lower lung zone with associated small right pleural effusion. Diffuse increased interstitial lung markings (please see full report) WBC 21.3 Tachycardic at 114 bpm Band neutrophils -21, improved Lactic Acid 2.8 Procalcitonin 14.7 Primaxin 500 mg IV q6h Vancomycin 1 gm IV q12h Azithromycin 500 mg IV qd Chest/Abd/Pelvis CT w/o contrast pending Infectious Disease, Dr. Pan, consulted. Help appreciated. Chest/Abd/Pelvis CT w/o contrast - extensive patchy infiltrates throughout the right hemithorax; bibasilar ateletasis, infilrates; indeterminate right axillary mass; no abdominal or pelvic ascites; enlarged prostate gland (please see full report) Pulmonology, Dr. Gaines, consulted. Help appreciated. Elevated D-Dimer: D-dimer - 862 V/Q scan - low probability for PE (please see full report) B/L lower extremity venous dopplers- no evidence of DVTs bilaterally (please see full report) Peripheral Vascular Disease: Vascular Surgery, Dr. Del Real, consulted. Help appreciated. Angiography ileofemoral runoff - distal SFA patent patient with mild instent; remarkable common femoral artery and posterior tibial artery; possible areas of stenosis within the proximal peroneal artery (please see full report) CHF: Cardiology, Dr. Clark, consulted. Help appreciated. Echo pending Troponins x 30.0220, 0.0600, 0.0390 Pro-BNP 48 Lasin 20 mg po qd COPD: Duonebs prn HTN: Home medications held due to sepsis; maintain blood pressure Diabetes Mellitus: Insulin sliding scale Accuchecks Coronary artery disease: ASA 81 mg PO daily Crestor 10 mg PO HS Hyperlipidemia: Crestor 10 mg PO HS Prophylactic Measures: DVT: Heparin 5,000 units SC Q8H, SCDs contraindicated due to lower extremity pain GI: Protonix 40 mg PO daily <Emory Dobbins H - Last Filed: 03/18/17 17:10> Objective - Vital Signs/Intake and Output Vital Signs (last 24 hours): Temp Pulse Resp BP Pulse Ox 98.3 F 95 H 20 160/81 H 94 L 04/18/17 15:06 03/18/17 15:06 03/18/17 15:06 03/18/17 15:06 03/18/17 15:06 - Medications Medications: Current Medications Albuterol/Ipratropium (Duoneb 3 Mg/0.5 Mg (3 Ml) Ud) 3 ml INH RQ4 [facility] Last Admin: 03/18/17 15:43 Dose: 3 ml Artificial Tears (Artificial Tears) 1 ml OU Q4 PRN PRN Reason: Dry eyes Last Admin: 03/18/17 10:04 Dose: 1 drop Aspirin (Ecotrin) 81 mg PO DAILY [facility] Last Admin: 03/18/17 10:05 Dose: 81 mg Docusate Sodium (Colace) 100 mg PO DAILY [facility] Last Admin: 03/18/17 16:05 Dose: Not Given Furosemide (Lasix) 20 mg IVP DAILY [facility] Last Admin: 03/18/17 16:06 Dose: Not Given Heparin Sodium (Porcine) (Heparin) 5,000 units SC Q8 [facility] Last Admin: 03/18/17 14:38 Dose: Not Given Hydrochlorothiazide (Microzide) 12.5 mg PO DAILY [facility] Last Admin: 03/18/17 10:06 Dose: 12.5 mg Vancomycin HCl 1,000 mg/ (Sodium Chloride) 250 mls @ 166.6 mls/hr IVPB Q12H [facility] Last Admin: 03/18/17 13:14 Dose: 166.6 mls/hr Azithromycin 500 mg/ Sodium (Chloride) 250 mls @ 166.667 mls/hr IVPB Q24H [facility] Imipenem/Cilastatin Sodium 500 (mg/ Sodium Chloride) 100 mls @ 100 mls/hr IVPB Q6H [facility] Last Admin: 03/18/17 15:46 Dose: 100 mls/hr Insulin Human Regular (Novolin R) 0 unit SC ACHS [facility] PRN Reason: Protocol Last Admin: 03/18/17 12:32 Dose: 12 unit Losartan Potassium (Cozaar) 50 mg PO DAILY [facility] Last Admin: 03/18/17 10:22 Dose: 50 mg Ondansetron HCl (Zofran Inj) 4 mg IVP Q6 PRN PRN Reason: Nausea/Vomiting Pantoprazole Sodium (Protonix Ec Tab) 40 mg PO DAILY [facility] Last Admin: 03/18/17 10:05 Dose: 40 mg Rosuvastatin Calcium (Crestor) 10 mg PO HS [facility] Last Admin: 03/17/17 21:24 Dose: 10 mg Saccharomyces Boulardii (Florastor) 250 mg PO BID [facility] Last Admin: 03/18/17 10:05 Dose: 250 mg Zolpidem Tartrate (Ambien) 5 mg PO HS PRN PRN Reason: Insomnia Last Admin: 03/17/17 22:25 Dose: 5 mg - Labs Labs: 03/18/17 06:35 03/18/17 06:35 PT 14.2 SECONDS (9.7-12.2) H 03/17/17 07:08 INR 1.3 03/17/17 07:08 APTT 28 SECONDS (21-34) 03/17/17 07:08 Attending/Attestation - Attestation I have personally seen and examined this patient.: Yes I have fully participated in the care of the patient.: Yes I have reviewed all pertinent clinical information, including history, physical exam and plan: Yes Notes (Text): Medical attending: Patient was seen and examined by me, agrees the above note by medical scribe. The CAT scan of the chest abdomen and pelvis has returned. And surprisingly he does not have ascites. I look through the film self and also saw the report. I was initially thinking that the patient could've may be possibly had SBP however however there is there is no ascites on the CT scan of the abdomen and pelvis. When it does show is that on the right lung has a very extensive what appears to be pneumonia. I did see this on the chest x-ray when the patient was admitted however we were not expecting the pneumonia to be that large. The patient does has a white blood cell count that is slightly decreased as well as a bandemia count is slightly decreased. Will continue continue to check lactic acid levels, as well as follow blood pressure heart rate and temperature readings. We also need to monitor his cultures if they should return positive At this time we will not give intravenous fluids only because his blood pressures have been on the very high side. At the same token we will not give blood pressure medications since he is still sepsis at this time Thank you very much, Emory Dobbins
--- NOTE | 2017-03-18 18:32 | CARD ---
APPROVED REPORT EXAM: Two-dimensional and M-mode echocardiogram with Doppler and color Doppler. Other Information Quality : GoodRhythm : NSR INDICATION Dizziness and Vertigo Dyspnea Pleural Effusion Chest Pain Congestive Heart Failure PNEUNOMIA /COD EXAC/SINUS TACHYCARDIA, RISK FACTORS Hypertension Hyperlipidemia Diabetes M-Mode DIMENSIONS RVDd1.87 (2.1-3.2cm)Left Atrium (MM)4.37 (2.5-4.0cm) IVSd1.68 (0.7-1.1cm)Aortic Root3.20 (2.2-3.7cm) LVDd4.69 (4.0-5.6cm)Aortic Cusp Exc.2.03 (1.5-2.0cm) PWd1.72 (0.7-1.1cm)FS (%) 40 % LVDs2.81 (2.0-3.8cm)LVEF (%)71 (>50%) Aortic Valve AoV Peak Ecicsens740.1cm/Pernell Peak GR.16mmHg Mitral Valve MV E Yvulgtoe542.5cm/sMV A Dzxggekx825.4cm/sE/A ratio0.9 TDI E/Lateral E'0.0E/Medial E'0.0 Tricuspid Valve TR Peak Impuhirt301dn/sTR Peak Gr.[id number] LEFT VENTRICLE The left ventricle is normal size. There is normal left ventricular wall thickness. The left ventricular function is normal. The left ventricular ejection fraction is within the normal range. There is normal LV segmental wall motion. Transmitral Doppler flow pattern is abnormal. RIGHT VENTRICLE The right ventricle is normal size. ATRIA The left atrium is mildly dilated. The right atrium size is normal. AORTIC VALVE The aortic valve is normal in structure. MITRAL VALVE The mitral valve is normal in structure. TRICUSPID VALVE The tricuspid valve is normal in structure. <Conclusion> Normal LV systolic finction. Diastolic dysfunction. Dilated LA. No significant valvular abnormality seen.
[2017-03-18] MEDS: Azithromycin 500 MG in Sodium Chloride 0.9% 250 ML IVPB SCH (18:51)
[2017-03-18] MEDS: (Lantus) Insulin Glargine, Recombinant SC SCH (18:51)
[2017-03-18 22:19] LABS: VENOUS BLOOD GAS BASE EXCESS -2.1 mmol/L (0.0-2.0); VENOUS BLOOD GAS PCO2 30 mmHg (40-60); VENOUS BLOOD PH 7.45 (7.32-7.43)
[2017-03-19] MEDS: Albuterol-Ipratrop 3 mg / 0.5 (3 ml) UD INH SCH ×7 (00:47→23:51)
--- NOTE | 2017-03-19 03:22 | CON ---
DATE: 03/18/2017 HISTORY OF PRESENT ILLNESS: The patient is a 66-year-old male. He speaks only [place]i. History of diabetes, hypertension, hyperlipidemia, peripheral artery disease, CHF, COPD, coronary artery disease . He came in with severe shortness of breath, and yesterday we did lot of CAT scans on him. He has been having severe shortness of breath, and I asked him if he has any nebulizer treatment at home. Misty yeager denies. He also complains of bilateral leg pain, and he says he is sometimes too weak to walk. He needs a walker, he says, and he needs a nebulizer machine also. At this time, I was asked to see elías zavala because he has been having severe shortness of breath and there is a question of pneumonia. He den ies smoking; however, but he says he may have been exposed to secondhand smoking. 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 He denied any chest pain when I saw him today. Did say he gets sh ort of breath. He sleeps with 2 pillows at night. He has had previous admission for CHF. He is obe se. His BMI 33.2. He is 206 pounds. He denied any fever at home. He says he is not producing any sputum. He denies any chest pain and denies any nausea, vomiting. No urinary complaints. He does h ave multiple medical history. ALLERGIES: HE IS ALLERGIC TO IODINE AND HE IS ALSO ALLERGIC TO ANESTHESIA. PAST SURGICAL HISTORY: Significant for right leg popliteal bypass graft, left in 2014. Left leg byp ass graft in 2013. He also had lung surgery 40 years ago. He said that there was a cow that hit him in the chest and they had to remove part of his lung. This was done in [place]. He also has a penile implant which was in 05/2015. He has had cardiac cath x 4. He lives alone and he has multiple hospi talizations last year for similar issues. FAMILY HISTORY: Mother at 80 and father at 85 of prostate cancer. SOCIAL HISTORY: He lives with his . Former smoker, 2 packs per day for 50 years. 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 REVIEW OF SYSTEMS: When he came in, he did complain of chills and headache. He had no fever. He marte s shortness of breath and palpitations, but no chest pain. No pain at rest. Denies any pain on deep inspiration, and he has no GI symptoms. No symptoms. He does suffer from arthralgia, myalgias, and complains of gait, like instability, and he is looking for walker. He denies any psych or neurol ogical problems. Denies any endocrine problems. MEDICATIONS: He is on DuoNeb, artificial tears, Ecotrin, Zithromax, furosemide, , hydrochloroth iazide, and imipenem. LABORATORY DATA: Show white count is 20.8, hemoglobin 11.2, his, actually, white count was 21.3 yest erday, it jumped from 9.5, so from 16 to 17. Hemoglobin is 11.2, hematocrit 35.3, platelet count is 242, bands are 21, they were 34 yesterday and before that was 14, so there is severe bandemia present . Chemistry shows that his glucose is which is high. Chemistry today was sodium 134, potassiu m 4.8, chloride 101, CO2 is 25, anion gap is 13, BUN is 26, creatinine 0.9. He had an ABG done. ABG shows his pH is 7.45, CO2 is 30 and O2 is 88.2. He had a chest CT, abdominal CT reports of which sh ow . Chest x-ray shows bullous changes over the apices, extensive patchy infiltrate throughout the right hemithorax, bilateral atelectasis, and infiltrate, and recommend followup and they show ind eterminate right axillary mass located inferior to the scapula at approximate level of right 7th rib, abnormal appearance of the right rib, indeterminate hepatosplenomegaly, no abdominal or pelvic ascit es, enlarged prostate. So he has bullous lesions by patchy infiltrates and hepatosplenomegaly, and s uggest that at this time . Medications: He is on imipenem, Zithromax, and vancomycin. We will continue those and we will monitor. He will be seen by a credit union field examiner, and we will follow. Leda Pan MD cc: [id number] TT: 03/19/2017 03:22:44 Confirmation # [id number] Dictation # [id number] tn
[2017-03-19] MEDS: (Lantus) Insulin Glargine, Recombinant SC SCH ×2 (06:29→19:51)
[2017-03-19 07:30] LABS: BASO # 0.1 K/uL (0.0-0.2); BASO % 0.5 % (0.0-2.0); EOS % 0.2 % (0.0-4.0); HEMATOCRIT 38.1 % (35.0-51.0); LYMPH # 2.2 K/uL (1.0-4.3); LYMPH % 11.2 % (20.0-40.0); MEAN CELL VOLUME 74.7 fL (80.0-94.0); MEAN CORPUSCULAR HEMOGLOBIN 23.9 pg (27.0-31.0); MEAN CORPUSCULAR HGB CONC 31.9 g/dL (33.0-37.0); MEAN PLATELET VOLUME 9.4 fL (7.2-11.7); MONO # 1.3 K/uL (0.0-0.8); MONO % 6.6 % (0.0-10.0); NRBC % 0.2 % (0.0-2.0); RED CELL DISTRIBUTION WIDTH 16.7 % (11.5-14.5); WHITE BLOOD COUNT 19.6 K/uL (4.8-10.8)
[2017-03-19 07:49] LABS: CHLORIDE 102 mmol/L (98-107); POTASSIUM 4.1 mmol/L (3.6-5.2); SODIUM 137 mmol/L (132-148)
[2017-03-19 07:51] LABS: BILIRUBIN,TOTAL 0.6 mg/dL (0.2-1.3); CARBON DIOXIDE 24 mmol/L (22-30); GFR AFRICAN-AMERICAN > 60
[2017-03-19 07:52] LABS: ALB/GLOB RATIO 1.1 (1.0-2.1); ALKALINE PHOSPHATASE 76 U/L (38-126); ALT/SGPT 60 U/L (21-72); AST/SGOT 19 U/L (17-59); BLOOD UREA NITROGEN 20 mg/dL (9-20); CALCIUM 8.8 mg/dl (8.6-10.4); GLUCOSE,RANDOM 176 mg/dL (75-110); PHOSPHOROUS 4.4 mg/dL (2.5-4.5)
[2017-03-19] MEDS: (Novolin R) Insulin Human Regular 100 units/ml vial SC SCH ×4 (08:19→22:26)
[2017-03-19] MEDS: (Novolog) Insulin Aspart, Recombinant 100 u/ml 10 ml vial SC SCH ×3 (08:20→17:39)
[2017-03-19] MEDS: Aritificial Tears (15ml) OU PRN (09:06)
[2017-03-19] MEDS: Pantoprazole 40 mg EC Tab PO SCH (09:07)
[2017-03-19] MEDS: Saccharomyces Boulardi 250 mg Cap PO SCH ×2 (09:08→17:39)
--- NOTE | 2017-03-19 10:29 | CP.PCM.PN ---
<Gm Hernandez - Last Filed: 03/19/17 10:26> Subjective - Date & Time of Evaluation Date of Evaluation: 03/19/17 Time of Evaluation: 10:26 - Subjective Subjective: Cardiology Progress Note Dr. Clark Patient seen and examined at the bedside. No acute distress. No acute events overnight. Nursing staff reports no issues. The patient is resting comfortably in bedside chair. The patient denies all cardiopulmonary complaints. 12 point review of systems was preformed and the patient denied all complaints at this time aside from abdominal pain. Objective - Vital Signs/Intake and Output Vital Signs (last 24 hours): Temp Pulse Resp BP Pulse Ox 97.6 F 93 H 20 162/85 H 95 03/19/17 07:05 03/19/17 07:05 03/19/17 07:05 03/19/17 09:06 03/19/17 07:05 Intake and Output: 03/19/17 03/19/17 06:59 18:59 Output Total 200 Balance -200 - Medications Medications: Current Medications Albuterol/Ipratropium (Duoneb 3 Mg/0.5 Mg (3 Ml) Ud) 3 ml INH RQ4 [facility] Last Admin: 03/19/17 07:44 Dose: Not Given Artificial Tears (Artificial Tears) 1 ml OU Q4 PRN PRN Reason: Dry eyes Last Admin: 03/19/17 09:06 Dose: 2 drop Aspirin (Ecotrin) 81 mg PO DAILY [facility] Last Admin: 03/19/17 09:08 Dose: 81 mg Docusate Sodium (Colace) 100 mg PO DAILY [facility] Last Admin: 03/19/17 09:08 Dose: 100 mg Furosemide (Lasix) 20 mg IVP DAILY [facility] Last Admin: 03/19/17 09:06 Dose: 20 mg Heparin Sodium (Porcine) (Heparin) 5,000 units SC Q8 [facility] Last Admin: 03/19/17 06:29 Dose: 5,000 units Hydrochlorothiazide (Microzide) 12.5 mg PO DAILY [facility] Last Admin: 03/19/17 09:07 Dose: 12.5 mg Vancomycin HCl 1,000 mg/ (Sodium Chloride) 250 mls @ 166.6 mls/hr IVPB Q12H [facility] Last Admin: 03/19/17 00:24 Dose: 166.6 mls/hr Azithromycin 500 mg/ Sodium (Chloride) 250 mls @ 166.667 mls/hr IVPB Q24H [facility] Last Admin: 03/18/17 18:51 Dose: 166.667 mls/hr Imipenem/Cilastatin Sodium 500 (mg/ Sodium Chloride) 100 mls @ 100 mls/hr IVPB Q6H [facility] Last Admin: 03/19/17 09:05 Dose: 100 mls/hr Insulin Aspart (Novolog) 10 unit SC AC [facility] Last Admin: 03/19/17 08:20 Dose: Not Given Insulin Glargine (Lantus) 20 unit SC Q12H [facility] Last Admin: 03/19/17 06:29 Dose: 20 units Insulin Human Regular (Novolin R) 0 unit SC ACHS [facility] PRN Reason: Protocol Last Admin: 03/19/17 08:19 Dose: 2 unit Lactulose (Enulose) 20 gm PO Q4H [facility] Last Admin: 03/19/17 09:08 Dose: Not Given Losartan Potassium (Cozaar) 50 mg PO DAILY [facility] Last Admin: 03/19/17 09:07 Dose: 50 mg Ondansetron HCl (Zofran Inj) 4 mg IVP Q6 PRN PRN Reason: Nausea/Vomiting Pantoprazole Sodium (Protonix Ec Tab) 40 mg PO DAILY [facility] Last Admin: 03/19/17 09:07 Dose: 40 mg Rosuvastatin Calcium (Crestor) 10 mg PO HS [facility] Last Admin: 03/18/17 21:47 Dose: 10 mg Saccharomyces Boulardii (Florastor) 250 mg PO BID [facility] Last Admin: 03/19/17 09:08 Dose: 250 mg Zolpidem Tartrate (Ambien) 5 mg PO HS PRN PRN Reason: Insomnia Last Admin: 03/19/17 00:24 Dose: 5 mg - Labs Labs: 03/19/17 07:20 03/19/17 07:20 PT 14.2 SECONDS (9.7-12.2) H 03/17/17 07:08 INR 1.3 03/17/17 07:08 APTT 28 SECONDS (21-34) 03/17/17 07:08 - Additional Findings Additional findings: - Constitutional Appears: No Acute Distress - Head Exam Head Exam: ATRAUMATIC, NORMAL INSPECTION, NORMOCEPHALIC - Eye Exam Eye Exam: EOMI, Normal appearance - ENT Exam ENT Exam: Mucous Membranes Moist - Neck Exam Neck exam: Positive for: Full Rom, Normal Inspection. Negative for: Lymphadenopathy - Respiratory Exam Respiratory Exam: Decreased Breath Sounds (Decreased on the Right Base > Mid lung field ), NORMAL BREATHING PATTERN. absent: Accessory Muscle Use, Clear to Auscultation Bilateral, Rhonchi, Wheezes, Respiratory Distress - Cardiovascular Exam Cardiovascular Exam: REGULAR RHYTHM, RRR, +S1, +S2. absent: Diastolic murmur, Systolic Murmur - GI/Abdominal Exam GI & Abdominal Exam: Distended, Normal Bowel Sounds, Soft. absent: Bruit, Guarding, Rebound, Rigid, Tenderness - Extremities Exam Extremities exam: Positive for: calf tenderness (B/L), normal inspection, pedal edema (1+ B/L), tenderness, pedal pulses present. Negative for: joint swelling - Neurological Exam Neurological exam: Alert, CN II-XII Intact, Oriented x3, Normal Gait (patient ambulates with walker, gait is non-antalgic and without hesitancy) - Skin Skin Exam: Dry, Intact, Normal Color, Warm Assessment and Plan (1) Diastolic CHF Assessment & Plan: 03/17/17 Echo- LV EF- 71%, diastolic dysfunction ,dilated LA, no valvular abnormalities Lasix 20mg IV daily Sd hose stockings Continue: - aspirin 81mg po daily - Crestor 10mg po hs 03/16/17 EKG- Sinus Tachycardia, Normal MD, widened QRS and prolonged QTc, Right axis, Right bundle branch block 07/17/16 Echo- LV EF 75% 08/19/15 Echo- LV EF 80% diastolic dysfunction Case discussed with Dr. Amber Hernandez PGY1 Status: h <Lemuel Clark - Last Filed: 04/28/17 18:04> Objective - Vital Signs/Intake and Output Vital Signs (last 24 hours): Temp Pulse Resp BP Pulse Ox 97.8 F 98 H 20 133/70 94 L 03/21/17 07:10 03/21/17 07:10 03/21/17 07:10 03/21/17 09:36 03/23/17 09:19 - Labs Labs: 03/21/17 07:17 03/21/17 07:17 PT 14.2 SECONDS (9.7-12.2) H 03/17/17 07:08 INR 1.3 03/17/17 07:08 APTT 28 SECONDS (21-34) 03/17/17 07:08 Attending/Attestation - Attestation I have personally seen and examined this patient.: Yes I have fully participated in the care of the patient.: Yes I have reviewed all pertinent clinical information, including history, physical exam and plan: Yes Notes (Text): 04/28/17 18:04 continue asa and crestor
--- NOTE | 2017-03-19 11:10 | CP.PCM.PN ---
Addendum entered and electronically signed by Jose Nicolas DO 03/19/17 13: 09: DM: Lantus 20 mg sc q12h, insulin sliding scale; Novolog 10 units sc ac HTN: HCTZ 12.5 mg po qd Original Note: <Jose Nicolas - Last Filed: 03/19/17 11:07> Subjective - Date & Time of Evaluation Date of Evaluation: 03/19/17 Time of Evaluation: 07:09 - Subjective Subjective: Pt seen and examined. Pt reports that he is feeling well. No acute events overnight reported. Pt denies fever, chills, chest pain, shortness of breath, nausea, and vomiting. Objective - Vital Signs/Intake and Output Vital Signs (last 24 hours): Temp Pulse Resp BP Pulse Ox 97.6 F 93 H 20 162/85 H 95 03/19/17 07:05 03/19/17 07:05 03/19/17 07:05 03/19/17 09:06 03/19/17 07:05 Intake and Output: 03/19/17 03/19/17 06:59 18:59 Output Total 200 Balance -200 - Medications Medications: Current Medications Albuterol/Ipratropium (Duoneb 3 Mg/0.5 Mg (3 Ml) Ud) 3 ml INH RQ4 [facility] Last Admin: 03/19/17 07:44 Dose: Not Given Artificial Tears (Artificial Tears) 1 ml OU Q4 PRN PRN Reason: Dry eyes Last Admin: 03/19/17 09:06 Dose: 2 drop Aspirin (Ecotrin) 81 mg PO DAILY [facility] Last Admin: 03/19/17 09:08 Dose: 81 mg Docusate Sodium (Colace) 100 mg PO DAILY [facility] Last Admin: 03/19/17 09:08 Dose: 100 mg Furosemide (Lasix) 20 mg IVP DAILY [facility] Last Admin: 03/19/17 09:06 Dose: 20 mg Heparin Sodium (Porcine) (Heparin) 5,000 units SC Q8 [facility] Last Admin: 03/19/17 06:29 Dose: 5,000 units Hydrochlorothiazide (Microzide) 12.5 mg PO DAILY [facility] Last Admin: 03/19/17 09:07 Dose: 12.5 mg Vancomycin HCl 1,000 mg/ (Sodium Chloride) 250 mls @ 166.6 mls/hr IVPB Q12H [facility] Last Admin: 03/19/17 00:24 Dose: 166.6 mls/hr Azithromycin 500 mg/ Sodium (Chloride) 250 mls @ 166.667 mls/hr IVPB Q24H [facility] Last Admin: 03/18/17 18:51 Dose: 166.667 mls/hr Imipenem/Cilastatin Sodium 500 (mg/ Sodium Chloride) 100 mls @ 100 mls/hr IVPB Q6H [facility] Last Admin: 03/19/17 09:05 Dose: 100 mls/hr Insulin Aspart (Novolog) 10 unit SC AC [facility] Last Admin: 03/19/17 08:20 Dose: Not Given Insulin Glargine (Lantus) 20 unit SC Q12H [facility] Last Admin: 03/19/17 06:29 Dose: 20 units Insulin Human Regular (Novolin R) 0 unit SC ACHS [facility] PRN Reason: Protocol Last Admin: 03/19/17 08:19 Dose: 2 unit Lactulose (Enulose) 20 gm PO Q4H [facility] Last Admin: 03/19/17 09:08 Dose: Not Given Losartan Potassium (Cozaar) 50 mg PO DAILY [facility] Last Admin: 03/19/17 09:07 Dose: 50 mg Ondansetron HCl (Zofran Inj) 4 mg IVP Q6 PRN PRN Reason: Nausea/Vomiting Pantoprazole Sodium (Protonix Ec Tab) 40 mg PO DAILY [facility] Last Admin: 03/19/17 09:07 Dose: 40 mg Rosuvastatin Calcium (Crestor) 10 mg PO HS [facility] Last Admin: 03/18/17 21:47 Dose: 10 mg Saccharomyces Boulardii (Florastor) 250 mg PO BID [facility] Last Admin: 03/19/17 09:08 Dose: 250 mg Zolpidem Tartrate (Ambien) 5 mg PO HS PRN PRN Reason: Insomnia Last Admin: 03/19/17 00:24 Dose: 5 mg - Labs Labs: 03/19/17 07:20 03/19/17 07:20 PT 14.2 SECONDS (9.7-12.2) H 03/17/17 07:08 INR 1.3 03/17/17 07:08 APTT 28 SECONDS (21-34) 03/17/17 07:08 - Constitutional Appears: No Acute Distress - Head Exam Head Exam: ATRAUMATIC - Eye Exam Eye Exam: EOMI, PERRL - ENT Exam ENT Exam: Mucous Membranes Moist. absent: Mucous Membranes Dry - Neck Exam Neck Exam: Full ROM. absent: Lymphadenopathy - Respiratory Exam Respiratory Exam: Decreased Breath Sounds. absent: Rhonchi, Wheezes Additional comments: Diminished breath sounds on right lung anthony - Cardiovascular Exam Cardiovascular Exam: +S1, +S2. absent: Gallop, Rubs - GI/Abdominal Exam GI & Abdominal Exam: Distended, Soft. absent: Guarding, Tenderness - Extremities Exam Extremities Exam: Full ROM. absent: Pedal Edema - Neurological Exam Neurological Exam: Alert, Awake, Oriented x3 - Psychiatric Exam Psychiatric exam: Normal Affect, Normal Mood - Skin Skin Exam: Normal Color, Warm Assessment and Plan - Assessment and Plan (Free Text) Assessment: Sepsis: WBC 19.6 HR -93 Afebrile Band neutrophils -21, improved Lactate 2.0 Sputum cultures pending Blood cultures no growth after 48 hours Urine no cultures no growth Primaxin 250 mg IV q6h Vancomycin 1 gm IV q12h Azithromycin 500 mg IV qd Pneumonia: Initial CXR - consolidation involving Right jae diaphragm (inferior RUL, RML, and RLL) and small right pleural effusion (see full report) Repeat CXR - biapical pleural thickening, prominent right air space consolidative changes inthe right mid to lower lung zone with associated small right pleural effusion. Diffuse increased interstitial lung markings (please see full report) WBC 19.6 HR - 93 bpm Band neutrophils -21, improved Lactic Acid 2.8 Procalcitonin 14.7 Primaxin 500 mg IV q6h Vancomycin 1 gm IV q12h Azithromycin 500 mg IV qd Chest/Abd/Pelvis CT w/o contrast pending Infectious Disease, Dr. Pan, consulted. Help appreciated. Chest/Abd/Pelvis CT w/o contrast - extensive patchy infiltrates throughout the right hemithorax; bibasilar ateletasis, infilrates; indeterminate right axillary mass; no abdominal or pelvic ascites; enlarged prostate gland (please see full report) Pulmonology, Dr. Gaines, consulted. Help appreciated. Elevated D-Dimer: D-dimer - 862 V/Q scan - low probability for PE (please see full report) B/L lower extremity venous dopplers- no evidence of DVTs bilaterally (please see full report) Peripheral Vascular Disease: Vascular Surgery, Dr. Del Real, consulted. Help appreciated. Angiography ileofemoral runoff - distal SFA patent patient with mild instent; remarkable common femoral artery and posterior tibial artery; possible areas of stenosis within the proximal peroneal artery (please see full report) CHF: Cardiology, Dr. Clark, consulted. Help appreciated. Echo pending Troponins x 30.0220, 0.0600, 0.0390 Pro-BNP 48 Lasin 20 mg po qd COPD: Duonebs prn HTN: Home medications held due to sepsis; maintain blood pressure Diabetes Mellitus: Insulin sliding scale Accuchecks Coronary artery disease: ASA 81 mg PO daily Crestor 10 mg PO HS Hyperlipidemia: Crestor 10 mg PO HS Prophylactic Measures: DVT: Heparin 5,000 units SC Q8H, SCDs contraindicated due to lower extremity pain GI: Protonix 40 mg PO daily <Emory Dobbins - Last Filed: 03/19/17 16:22> Objective - Vital Signs/Intake and Output Vital Signs (last 24 hours): Temp Pulse Resp BP Pulse Ox 97.6 F 97 H 20 162/85 H 95 03/19/17 07:05 03/19/17 09:00 03/19/17 07:05 03/19/17 09:06 03/19/17 07:05 Intake and Output: 03/19/17 03/19/17 06:59 18:59 Output Total 200 Balance -200 - Medications Medications: Current Medications Albuterol/Ipratropium (Duoneb 3 Mg/0.5 Mg (3 Ml) Ud) 3 ml INH RQ4 [facility] Last Admin: 03/19/17 15:45 Dose: 3 ml Artificial Tears (Artificial Tears) 1 ml OU Q4 PRN PRN Reason: Dry eyes Last Admin: 03/19/17 09:06 Dose: 2 drop Aspirin (Ecotrin) 81 mg PO DAILY [facility] Last Admin: 03/19/17 09:08 Dose: 81 mg Docusate Sodium (Colace) 100 mg PO DAILY [facility] Last Admin: 03/19/17 09:08 Dose: 100 mg Furosemide (Lasix) 20 mg IVP DAILY [facility] Last Admin: 03/19/17 09:06 Dose: 20 mg Heparin Sodium (Porcine) (Heparin) 5,000 units SC Q8 [facility] Last Admin: 03/19/17 13:31 Dose: 5,000 units Hydrochlorothiazide (Microzide) 12.5 mg PO DAILY [facility] Last Admin: 03/19/17 09:07 Dose: 12.5 mg Vancomycin HCl 1,000 mg/ (Sodium Chloride) 250 mls @ 166.6 mls/hr IVPB Q12H [facility] Last Admin: 03/19/17 15:31 Dose: 166.6 mls/hr Azithromycin 500 mg/ Sodium (Chloride) 250 mls @ 166.667 mls/hr IVPB Q24H [facility] Last Admin: 03/18/17 18:51 Dose: 166.667 mls/hr Imipenem/Cilastatin Sodium 500 (mg/ Sodium Chloride) 100 mls @ 100 mls/hr IVPB Q6H [facility] Last Admin: 03/19/17 15:37 Dose: 100 mls/hr Insulin Aspart (Novolog) 10 unit SC AC [facility] Last Admin: 03/19/17 13:30 Dose: 10 unit Insulin Glargine (Lantus) 20 unit SC Q12H [facility] Last Admin: 03/19/17 06:29 Dose: 20 units Insulin Human Regular (Novolin R) 0 unit SC ACHS [facility] PRN Reason: Protocol Last Admin: 03/19/17 12:11 Dose: 8 unit Lactulose (Enulose) 20 gm PO Q4H [facility] Last Admin: 03/19/17 09:08 Dose: Not Given Losartan Potassium (Cozaar) 50 mg PO DAILY [facility] Last Admin: 03/19/17 09:07 Dose: 50 mg Ondansetron HCl (Zofran Inj) 4 mg IVP Q6 PRN PRN Reason: Nausea/Vomiting Pantoprazole Sodium (Protonix Ec Tab) 40 mg PO DAILY [facility] Last Admin: 03/19/17 09:07 Dose: 40 mg Rosuvastatin Calcium (Crestor) 10 mg PO HS [facility] Last Admin: 03/18/17 21:47 Dose: 10 mg Saccharomyces Boulardii (Florastor) 250 mg PO BID [facility] Last Admin: 03/19/17 09:08 Dose: 250 mg Zolpidem Tartrate (Ambien) 5 mg PO HS PRN PRN Reason: Insomnia Last Admin: 03/19/17 00:24 Dose: 5 mg - Labs Labs: 03/19/17 07:20 03/19/17 07:20 PT 14.2 SECONDS (9.7-12.2) H 04/17/17 07:08 INR 1.3 03/17/17 07:08 APTT 28 SECONDS (21-34) 03/17/17 07:08 Attending/Attestation - Attestation I have personally seen and examined this patient.: Yes I have fully participated in the care of the patient.: Yes I have reviewed all pertinent clinical information, including history, physical exam and plan: Yes Notes (Text): Medical Attending: Patient was seen and examined by me. Agree with the above note by the resident. The patient's WBC is decreased, and L shift decreased. Currently there was no bandemia reported today. He is afebrile, continue with the IV abx, the cultures remain negative at this moment. The patient was ambulating in the room and was able to be out of bed to chair - he looked better today despite his still serious lab work. The patient reports his shortness of breath and cough is now a lot better Also we are further adjusting his DM medication as well. thank you Emory Dobbins 03/19/17 16:22
--- NOTE | 2017-03-19 11:38 | CP.PCM.PN ---
Subjective - Date & Time of Evaluation Date of Evaluation: 03/19/17 Time of Evaluation: 10:50 - Subjective Subjective: Pt seen and examined sitting in chair. Pt denies SOB, chest pain, chest pain with breathing, nausea, vomiting, abdominal pain, and constipation (passed stool today). Objective - Vital Signs/Intake and Output Vital Signs (last 24 hours): Temp Pulse Resp BP Pulse Ox 97.6 F 93 H 20 162/85 H 95 03/19/17 07:05 03/19/17 07:05 03/19/17 07:05 03/19/17 09:06 03/19/17 07:05 Intake and Output: 03/19/17 03/19/17 06:59 18:59 Output Total 200 Balance -200 - Medications Medications: Current Medications Albuterol/Ipratropium (Duoneb 3 Mg/0.5 Mg (3 Ml) Ud) 3 ml INH RQ4 [facility] Last Admin: 03/19/17 11:12 Dose: Not Given Artificial Tears (Artificial Tears) 1 ml OU Q4 PRN PRN Reason: Dry eyes Last Admin: 03/19/17 09:06 Dose: 2 drop Aspirin (Ecotrin) 81 mg PO DAILY [facility] Last Admin: 03/19/17 09:08 Dose: 81 mg Docusate Sodium (Colace) 100 mg PO DAILY [facility] Last Admin: 03/19/17 09:08 Dose: 100 mg Furosemide (Lasix) 20 mg IVP DAILY [facility] Last Admin: 03/19/17 09:06 Dose: 20 mg Heparin Sodium (Porcine) (Heparin) 5,000 units SC Q8 [facility] Last Admin: 03/19/17 06:29 Dose: 5,000 units Hydrochlorothiazide (Microzide) 12.5 mg PO DAILY [facility] Last Admin: 03/19/17 09:07 Dose: 12.5 mg Vancomycin HCl 1,000 mg/ (Sodium Chloride) 250 mls @ 166.6 mls/hr IVPB Q12H [facility] Last Admin: 03/19/17 00:24 Dose: 166.6 mls/hr Azithromycin 500 mg/ Sodium (Chloride) 250 mls @ 166.667 mls/hr IVPB Q24H [facility] Last Admin: 03/18/17 18:51 Dose: 166.667 mls/hr Imipenem/Cilastatin Sodium 500 (mg/ Sodium Chloride) 100 mls @ 100 mls/hr IVPB Q6H [facility] Last Admin: 03/19/17 09:05 Dose: 100 mls/hr Insulin Aspart (Novolog) 10 unit SC AC [facility] Last Admin: 03/19/17 08:20 Dose: Not Given Insulin Glargine (Lantus) 20 unit SC Q12H [facility] Last Admin: 03/19/17 06:29 Dose: 20 units Insulin Human Regular (Novolin R) 0 unit SC ACHS [facility] PRN Reason: Protocol Last Admin: 03/19/17 08:19 Dose: 2 unit Lactulose (Enulose) 20 gm PO Q4H [facility] Last Admin: 03/19/17 09:08 Dose: Not Given Losartan Potassium (Cozaar) 50 mg PO DAILY [facility] Last Admin: 03/19/17 09:07 Dose: 50 mg Ondansetron HCl (Zofran Inj) 4 mg IVP Q6 PRN PRN Reason: Nausea/Vomiting Pantoprazole Sodium (Protonix Ec Tab) 40 mg PO DAILY [facility] Last Admin: 03/19/17 09:07 Dose: 40 mg Rosuvastatin Calcium (Crestor) 10 mg PO HS [facility] Last Admin: 03/18/17 21:47 Dose: 10 mg Saccharomyces Boulardii (Florastor) 250 mg PO BID [facility] Last Admin: 03/19/17 09:08 Dose: 250 mg Zolpidem Tartrate (Ambien) 5 mg PO HS PRN PRN Reason: Insomnia Last Admin: 03/19/17 00:24 Dose: 5 mg - Labs Labs: 03/19/17 07:20 03/19/17 07:20 PT 14.2 SECONDS (9.7-12.2) H 03/17/17 07:08 INR 1.3 03/17/17 07:08 APTT 28 SECONDS (21-34) 03/17/17 07:08 - Constitutional Appears: Well, No Acute Distress - Head Exam Head Exam: ATRAUMATIC, NORMOCEPHALIC - Respiratory Exam Respiratory Exam: Decreased Breath Sounds (R reduced air sounds anteriorly), Rhonchi (R rhonchi middle and lower posterior, L lower anterior), NORMAL BREATHING PATTERN. absent: Clear to Ausculation Bilateral, Rales, Wheezes, Respiratory Distress - Cardiovascular Exam Cardiovascular Exam: +S1, +S2. absent: Murmur - Neurological Exam Neurological Exam: Alert, Awake, Oriented x3 - Psychiatric Exam Psychiatric exam: Normal Affect, Normal Mood - Skin Skin Exam: Dry, Intact, Normal Color, Warm Assessment and Plan (1) Pneumonia Assessment & Plan: Continue current treatment including antibiotics; cultures of blood, urine, and sputum show no growth or normal anjelica CXR ordered and will follow result Optimized for discharge; recommended outpatient follow-up Status: Acute
[2017-03-19] MEDS: Azithromycin 500 MG in Sodium Chloride 0.9% 250 ML IVPB SCH (19:51)
--- NOTE | 2017-03-19 21:29 | CP.PCM.PN ---
Subjective - Date & Time of Evaluation Date of Evaluation: 03/19/17 Time of Evaluation: 02:00 - Subjective Subjective: dictated Objective - Vital Signs/Intake and Output Vital Signs (last 24 hours): Temp Pulse Resp BP Pulse Ox 98.0 F 100 H 20 140/78 94 L 03/19/17 15:06 03/19/17 15:06 03/19/17 15:06 03/19/17 15:06 03/19/17 15:06 - Medications Medications: Current Medications Albuterol/Ipratropium (Duoneb 3 Mg/0.5 Mg (3 Ml) Ud) 3 ml INH RQ4 [facility] Last Admin: 03/19/17 19:55 Dose: 3 ml Artificial Tears (Artificial Tears) 1 ml OU Q4 PRN PRN Reason: Dry eyes Last Admin: 03/19/17 09:06 Dose: 2 drop Aspirin (Ecotrin) 81 mg PO DAILY [facility] Last Admin: 03/19/17 09:08 Dose: 81 mg Docusate Sodium (Colace) 100 mg PO DAILY [facility] Last Admin: 03/19/17 09:08 Dose: 100 mg Furosemide (Lasix) 20 mg IVP DAILY [facility] Last Admin: 03/19/17 09:06 Dose: 20 mg Heparin Sodium (Porcine) (Heparin) 5,000 units SC Q8 [facility] Last Admin: 03/19/17 13:31 Dose: 5,000 units Hydrochlorothiazide (Microzide) 12.5 mg PO DAILY [facility] Last Admin: 03/19/17 09:07 Dose: 12.5 mg Vancomycin HCl 1,000 mg/ (Sodium Chloride) 250 mls @ 166.6 mls/hr IVPB Q12H [facility] Last Admin: 03/19/17 15:31 Dose: 166.6 mls/hr Azithromycin 500 mg/ Sodium (Chloride) 250 mls @ 166.667 mls/hr IVPB Q24H [facility] Last Admin: 03/19/17 19:51 Dose: 166.667 mls/hr Imipenem/Cilastatin Sodium 500 (mg/ Sodium Chloride) 100 mls @ 100 mls/hr IVPB Q6H [facility] Last Admin: 03/19/17 15:37 Dose: 100 mls/hr Insulin Aspart (Novolog) 10 unit SC AC [facility] Last Admin: 03/19/17 17:39 Dose: 10 unit Insulin Glargine (Lantus) 20 unit SC Q12H [facility] Last Admin: 03/19/17 19:51 Dose: 20 units Insulin Human Regular (Novolin R) 0 unit SC ACHS [facility] PRN Reason: Protocol Last Admin: 03/19/17 17:40 Dose: 4 unit Lactulose (Enulose) 20 gm PO Q4H [facility] Last Admin: 03/19/17 17:43 Dose: 20 gm Losartan Potassium (Cozaar) 50 mg PO DAILY [facility] Last Admin: 03/19/17 09:07 Dose: 50 mg Ondansetron HCl (Zofran Inj) 4 mg IVP Q6 PRN PRN Reason: Nausea/Vomiting Pantoprazole Sodium (Protonix Ec Tab) 40 mg PO DAILY [facility] Last Admin: 03/19/17 09:07 Dose: 40 mg Rosuvastatin Calcium (Crestor) 10 mg PO HS [facility] Last Admin: 03/18/17 21:47 Dose: 10 mg Saccharomyces Boulardii (Florastor) 250 mg PO BID [facility] Last Admin: 03/19/17 17:39 Dose: 250 mg Zolpidem Tartrate (Ambien) 5 mg PO HS PRN PRN Reason: Insomnia Last Admin: 03/19/17 00:24 Dose: 5 mg - Labs Labs: 03/19/17 07:20 03/19/17 07:20 PT 14.2 SECONDS (9.7-12.2) H 03/17/17 07:08 INR 1.3 03/17/17 07:08 APTT 28 SECONDS (21-34) 03/17/17 07:08
--- NOTE | 2017-03-19 23:12 | PN ---
DATE: 03/19/2017 SUBJECTIVE: The patient was seen today. He was saying he has no shortness of breath, not coughing a s much. He was breathing easier. Denied any nausea or vomiting. No chest pain. He also had a walk er at the bedside. He had no new complaints; however, he was worried about his kidneys as he is antib iotics. He says, "I hope the kidneys remain okay." We will follow up closely with the blood tests. PHYSICAL EXAMINATION VITAL SIGNS: T-max is 98, heart rate of 100, blood pressure 162/85, respirations are 20. GENERAL: He is obese. HEENT: Head is atraumatic, normocephalic. NECK: Supple. LUNGS: Clear. No wheeze, no rhonchi present. Decreased breath sounds bilaterally. HEART: S1, S2 regular. No murmurs appreciated. ABDOMEN: Soft, flabby, prominent. No guarding, no rigidity. EXTREMITIES: Have trace edema present. LABORATORY DATA: Noted. Labs show white count is 19.6, remains high. Hemoglobin is 12.2, hematocrit 38.1, platelet count is 273. Sodium 137, potassium 4.1, chloride 102, CO2 is 24, creatinine is 0.9. His chemistry noted. Micro-mcpherson, his blood cultures, sputum culture, urine culture -- all cultures came out negative. ASSESSMENT AND PLAN: I want to make sure we ordered serologies. He is on vancomycin, Zithromax and im ipenem at this time, and I do not see that serology is ordered, so we will order for serologies to ru le out strep pneumo and legionella and mycoplasma and will continue present treatment at this time. He does remain with severe bandemia and will follow and has a high white count, still remains with se psis and pneumonia. Leda Pan MD cc: [id number] TT: 03/19/2017 23:12:06 Confirmation # [id number] Dictation # [id number] ln
--- NOTE | 2017-03-20 00:02 | CP.PCM.PN ---
Subjective - Date & Time of Evaluation Date of Evaluation: 03/19/17 Time of Evaluation: 07:00 - Subjective Subjective: Pt S&E. Ambulating with 4 pt walker. Reports having BM. States leg pain has slightly improved. NAEO. Objective - Vital Signs/Intake and Output Vital Signs (last 24 hours): Temp Pulse Resp BP Pulse Ox 98.0 F 100 H 20 140/78 94 L 03/19/17 15:06 03/19/17 23:52 03/19/17 15:06 03/19/17 15:06 03/19/17 15:06 - Medications Medications: Current Medications Albuterol/Ipratropium (Duoneb 3 Mg/0.5 Mg (3 Ml) Ud) 3 ml INH RQ4 [facility] Last Admin: 03/19/17 23:51 Dose: Not Given Artificial Tears (Artificial Tears) 1 ml OU Q4 PRN PRN Reason: Dry eyes Last Admin: 03/19/17 09:06 Dose: 2 drop Aspirin (Ecotrin) 81 mg PO DAILY [facility] Last Admin: 03/19/17 09:08 Dose: 81 mg Docusate Sodium (Colace) 100 mg PO DAILY [facility] Last Admin: 03/19/17 09:08 Dose: 100 mg Furosemide (Lasix) 20 mg IVP DAILY [facility] Last Admin: 03/19/17 09:06 Dose: 20 mg Heparin Sodium (Porcine) (Heparin) 5,000 units SC Q8 [facility] Last Admin: 03/19/17 22:25 Dose: 5,000 units Hydrochlorothiazide (Microzide) 12.5 mg PO DAILY [facility] Last Admin: 03/19/17 09:07 Dose: 12.5 mg Vancomycin HCl 1,000 mg/ (Sodium Chloride) 250 mls @ 166.6 mls/hr IVPB Q12H [facility] Last Admin: 03/19/17 23:36 Dose: 166.6 mls/hr Azithromycin 500 mg/ Sodium (Chloride) 250 mls @ 166.667 mls/hr IVPB Q24H [facility] Last Admin: 03/19/17 19:51 Dose: 166.667 mls/hr Imipenem/Cilastatin Sodium 500 (mg/ Sodium Chloride) 100 mls @ 100 mls/hr IVPB Q6H [facility] Last Admin: 03/19/17 22:25 Dose: 100 mls/hr Insulin Aspart (Novolog) 10 unit SC AC [facility] Last Admin: 03/19/17 17:39 Dose: 10 unit Insulin Glargine (Lantus) 20 unit SC Q12H [facility] Last Admin: 03/19/17 19:51 Dose: 20 units Insulin Human Regular (Novolin R) 0 unit SC ACHS [facility] PRN Reason: Protocol Last Admin: 03/19/17 22:26 Dose: Not Given Lactulose (Enulose) 20 gm PO Q4H [facility] Last Admin: 03/19/17 22:31 Dose: Not Given Losartan Potassium (Cozaar) 50 mg PO DAILY [facility] Last Admin: 03/19/17 09:07 Dose: 50 mg Ondansetron HCl (Zofran Inj) 4 mg IVP Q6 PRN PRN Reason: Nausea/Vomiting Pantoprazole Sodium (Protonix Ec Tab) 40 mg PO DAILY [facility] Last Admin: 03/19/17 09:07 Dose: 40 mg Rosuvastatin Calcium (Crestor) 10 mg PO HS [facility] Last Admin: 03/19/17 22:25 Dose: 10 mg Saccharomyces Boulardii (Florastor) 250 mg PO BID [facility] Last Admin: 03/19/17 17:39 Dose: 250 mg Zolpidem Tartrate (Ambien) 5 mg PO HS PRN PRN Reason: Insomnia Last Admin: 03/19/17 22:30 Dose: 5 mg - Labs Labs: 03/19/17 07:20 03/19/17 07:20 PT 14.2 SECONDS (9.7-12.2) H 03/17/17 07:08 INR 1.3 03/17/17 07:08 APTT 28 SECONDS (21-34) 03/17/17 07:08 - Constitutional Appears: No Acute Distress - ENT Exam ENT Exam: Mucous Membranes Moist - Respiratory Exam Respiratory Exam: NORMAL BREATHING PATTERN - Cardiovascular Exam Cardiovascular Exam: +S1, +S2 - GI/Abdominal Exam GI & Abdominal Exam: Soft. absent: Tenderness - Neurological Exam Neurological Exam: Alert, Awake, Oriented x3 - Psychiatric Exam Psychiatric exam: Normal Mood - Skin Skin Exam: Dry, Warm Assessment and Plan - Assessment and Plan (Free Text) Assessment: 66M w/ claudication -Angiography showed sites of stenosis -No emergent surgical intervention required at this time -Patient can follow up as outpatient for further evaluation -Iván Ro
[2017-03-20] MEDS: Albuterol-Ipratrop 3 mg / 0.5 (3 ml) UD INH SCH ×5 (03:15→20:14)
[2017-03-20] MEDS: (Lantus) Insulin Glargine, Recombinant SC SCH ×2 (07:09→18:20)
[2017-03-20] MEDS: (Novolog) Insulin Aspart, Recombinant 100 u/ml 10 ml vial SC SCH ×3 (08:20→18:20)
[2017-03-20] MEDS: (Novolin R) Insulin Human Regular 100 units/ml vial SC SCH ×4 (08:21→22:30)
[2017-03-20] MEDS: Aritificial Tears (15ml) OU PRN (08:27)
[2017-03-20 08:44] LABS: BASO # 0.1 K/uL (0.0-0.2); BASO % 0.5 % (0.0-2.0); EOS # 0.5 K/uL (0.0-0.7); EOS % 4.4 % (0.0-4.0); HEMATOCRIT 42.3 % (35.0-51.0); LYMPH # 2.5 K/uL (1.0-4.3); LYMPH % 22.1 % (20.0-40.0); MEAN CELL VOLUME 74.9 fL (80.0-94.0); MEAN CORPUSCULAR HEMOGLOBIN 23.5 pg (27.0-31.0); MEAN CORPUSCULAR HGB CONC 31.5 g/dL (33.0-37.0); MEAN PLATELET VOLUME 9.7 fL (7.2-11.7); MONO # 1.3 K/uL (0.0-0.8); MONO % 11.5 % (0.0-10.0); RED CELL DISTRIBUTION WIDTH 16.9 % (11.5-14.5); WHITE BLOOD COUNT 11.2 K/uL (4.8-10.8)
[2017-03-20 08:51] LABS: CHLORIDE 98 mmol/L (98-107); SODIUM 133 mmol/L (132-148)
[2017-03-20 08:52] LABS: POTASSIUM 4.1 mmol/L (3.6-5.2)
[2017-03-20 08:53] LABS: GFR AFRICAN-AMERICAN > 60
[2017-03-20 08:54] LABS: ALB/GLOB RATIO 1.1 (1.0-2.1); ALKALINE PHOSPHATASE 84 U/L (38-126); ALT/SGPT 84 U/L (21-72); AST/SGOT 26 U/L (17-59); BILIRUBIN,TOTAL 0.7 mg/dL (0.2-1.3); BLOOD UREA NITROGEN 18 mg/dL (9-20); CARBON DIOXIDE 24 mmol/L (22-30); GLUCOSE,RANDOM 272 mg/dL (75-110); PHOSPHOROUS 3.8 mg/dL (2.5-4.5); TOTAL PROTEIN 6.9 g/dL (6.3-8.3)
[2017-03-20 08:55] LABS: CALCIUM 8.5 mg/dl (8.6-10.4); MAGNESIUM 1.9 mg/dL (1.6-2.3)
[2017-03-20] MEDS: Pantoprazole 40 mg EC Tab PO SCH (09:48)
[2017-03-20] MEDS: Saccharomyces Boulardi 250 mg Cap PO SCH ×2 (09:48→18:20)
--- NOTE | 2017-03-20 10:08 | CP.PCM.PN ---
<Gm Hernandez - Last Filed: 03/20/17 10:05> Subjective - Date & Time of Evaluation Date of Evaluation: 03/20/17 Time of Evaluation: 10:05 - Subjective Subjective: Cardiology Progress Note Dr. Clark Patient seen and examined at the bedside. No acute distress. No acute events overnight. Nursing staff reports no issues. The patient is resting comfortably in bed. The patient denies all cardiopulmonary complaints. 12 point review of systems was preformed and the patient denied all complaints at this time. Objective - Vital Signs/Intake and Output Vital Signs (last 24 hours): Temp Pulse Resp BP Pulse Ox 97.8 F 61 106 H 142/87 97 03/20/17 07:00 03/20/17 07:00 03/20/17 07:00 03/20/17 09:48 03/20/17 07:00 - Medications Medications: Current Medications Albuterol/Ipratropium (Duoneb 3 Mg/0.5 Mg (3 Ml) Ud) 3 ml INH RQ4 [facility] Last Admin: 03/20/17 07:34 Dose: 3 ml Artificial Tears (Artificial Tears) 1 ml OU Q4 PRN PRN Reason: Dry eyes Last Admin: 03/20/17 08:27 Dose: 1 drop Aspirin (Ecotrin) 81 mg PO DAILY [facility] Last Admin: 03/20/17 09:48 Dose: 81 mg Docusate Sodium (Colace) 100 mg PO DAILY [facility] Last Admin: 03/20/17 09:48 Dose: 100 mg Furosemide (Lasix) 20 mg IVP DAILY [facility] Last Admin: 03/20/17 09:48 Dose: 20 mg Heparin Sodium (Porcine) (Heparin) 5,000 units SC Q8 [facility] Last Admin: 03/20/17 07:12 Dose: 5,000 units Hydrochlorothiazide (Microzide) 12.5 mg PO DAILY [facility] Last Admin: 03/20/17 09:48 Dose: 12.5 mg Vancomycin HCl 1,000 mg/ (Sodium Chloride) 250 mls @ 166.6 mls/hr IVPB Q12H [facility] Last Admin: 03/19/17 23:36 Dose: 166.6 mls/hr Azithromycin 500 mg/ Sodium (Chloride) 250 mls @ 166.667 mls/hr IVPB Q24H [facility] Last Admin: 03/19/17 19:51 Dose: 166.667 mls/hr Imipenem/Cilastatin Sodium 500 (mg/ Sodium Chloride) 100 mls @ 100 mls/hr IVPB Q6H [facility] Last Admin: 03/20/17 08:21 Dose: 100 mls/hr Insulin Aspart (Novolog) 10 unit SC AC [facility] Last Admin: 03/20/17 08:20 Dose: 10 unit Insulin Glargine (Lantus) 20 unit SC Q12H [facility] Last Admin: 03/20/17 07:09 Dose: 20 units Insulin Human Regular (Novolin R) 0 unit SC ACHS [facility] PRN Reason: Protocol Last Admin: 03/20/17 08:21 Dose: 4 unit Lactulose (Enulose) 20 gm PO Q4H [facility] Last Admin: 03/20/17 09:48 Dose: 20 gm Losartan Potassium (Cozaar) 50 mg PO DAILY [facility] Last Admin: 03/20/17 09:48 Dose: 50 mg Ondansetron HCl (Zofran Inj) 4 mg IVP Q6 PRN PRN Reason: Nausea/Vomiting Pantoprazole Sodium (Protonix Ec Tab) 40 mg PO DAILY [facility] Last Admin: 03/20/17 09:48 Dose: 40 mg Rosuvastatin Calcium (Crestor) 10 mg PO HS [facility] Last Admin: 03/19/17 22:25 Dose: 10 mg Saccharomyces Boulardii (Florastor) 250 mg PO BID [facility] Last Admin: 03/20/17 09:48 Dose: 250 mg Zolpidem Tartrate (Ambien) 5 mg PO HS PRN PRN Reason: Insomnia Last Admin: 03/19/17 22:30 Dose: 5 mg - Labs Labs: 03/20/17 08:33 03/20/17 08:33 PT 14.2 SECONDS (9.7-12.2) H 03/17/17 07:08 INR 1.3 03/17/17 07:08 APTT 28 SECONDS (21-34) 03/17/17 07:08 - Additional Findings Additional findings: - Constitutional Appears: No Acute Distress - Head Exam Head Exam: ATRAUMATIC, NORMAL INSPECTION, NORMOCEPHALIC - Eye Exam Eye Exam: EOMI, Normal appearance - ENT Exam ENT Exam: Mucous Membranes Moist - Neck Exam Neck exam: Positive for: Full Rom, Normal Inspection. Negative for: Lymphadenopathy - Respiratory Exam Respiratory Exam: Decreased Breath Sounds (Right), Rhonchi (Right middle and lower), NORMAL BREATHING PATTERN. absent: Accessory Muscle Use, Clear to Auscultation Bilateral, Wheezes, Respiratory Distress - Cardiovascular Exam Cardiovascular Exam: REGULAR RHYTHM, RRR, +S1, +S2. absent: Diastolic murmur, Systolic Murmur - GI/Abdominal Exam GI & Abdominal Exam: Distended, Normal Bowel Sounds, Soft. absent: Bruit, Guarding, Rebound, Rigid, Tenderness - Extremities Exam Extremities exam: Positive for: calf tenderness (B/L), normal inspection, pedal edema (1+ B/L), tenderness, pedal pulses present. Negative for: joint swelling - Neurological Exam Neurological exam: Alert, CN II-XII Intact, Oriented x3, Normal Gait (patient ambulates with walker, gait is non-antalgic and without hesitancy) - Skin Skin Exam: Dry, Intact, Normal Color, Warm Assessment and Plan (1) Diastolic CHF Assessment & Plan: Continue Lasix 20mg IV daily Sd hose stockings Cardiac Stable 03/17/17 Echo- LV EF- 71%, diastolic dysfunction ,dilated LA, no valvular abnormalities Continue: - aspirin 81mg po daily - Crestor 10mg po hs 03/16/17 EKG- Sinus Tachycardia, Normal ME, widened QRS and prolonged QTc, Right axis, Right bundle branch block 07/17/16 Echo- LV EF 75% 08/19/15 Echo- LV EF 80% diastolic dysfunction Case discussed with Dr. Amber Hernandez PGY1 Status: h <Lemuel Clark - Last Filed: 04/28/17 18:03> Objective - Vital Signs/Intake and Output Vital Signs (last 24 hours): Temp Pulse Resp BP Pulse Ox 97.8 F 98 H 20 133/70 94 L 03/21/17 07:10 03/21/17 07:10 03/21/17 07:10 03/21/17 09:36 03/23/17 09:19 - Labs Labs: 03/21/17 07:17 03/21/17 07:17 PT 14.2 SECONDS (9.7-12.2) H 03/17/17 07:08 INR 1.3 03/17/17 07:08 APTT 28 SECONDS (21-34) 03/17/17 07:08 Attending/Attestation - Attestation I have personally seen and examined this patient.: Yes I have fully participated in the care of the patient.: Yes I have reviewed all pertinent clinical information, including history, physical exam and plan: Yes Notes (Text): 04/28/17 18:03 nl ef on echo continue sissy
--- NOTE | 2017-03-20 14:13 | CP.PCM.PN ---
<Jose Nicolas - Last Filed: 03/20/17 14:09> Subjective - Date & Time of Evaluation Date of Evaluation: 03/20/17 Time of Evaluation: 07:14 - Subjective Subjective: Pt seen and examined. Pt reports that he is breathing comfortably at rest today. Pt reports that he gets slightly short of breath after ambulating. Pt reports that he is having bowel movements. Pt denies fever, chills, chest pain, nausea, and vomiting. Objective - Vital Signs/Intake and Output Vital Signs (last 24 hours): Temp Pulse Resp BP Pulse Ox 97.8 F 61 106 H 142/87 97 03/20/17 07:00 03/20/17 09:00 03/20/17 07:00 03/20/17 09:48 03/20/17 07:00 - Medications Medications: Current Medications Albuterol/Ipratropium (Duoneb 3 Mg/0.5 Mg (3 Ml) Ud) 3 ml INH RQ4 [facility] Last Admin: 03/20/17 11:12 Dose: 3 ml Artificial Tears (Artificial Tears) 1 ml OU Q4 PRN PRN Reason: Dry eyes Last Admin: 03/20/17 08:27 Dose: 1 drop Aspirin (Ecotrin) 81 mg PO DAILY [facility] Last Admin: 03/20/17 09:48 Dose: 81 mg Docusate Sodium (Colace) 100 mg PO DAILY [facility] Last Admin: 03/20/17 09:48 Dose: 100 mg Furosemide (Lasix) 20 mg IVP DAILY [facility] Last Admin: 03/20/17 09:48 Dose: 20 mg Heparin Sodium (Porcine) (Heparin) 5,000 units SC Q8 [facility] Last Admin: 03/20/17 07:12 Dose: 5,000 units Hydrochlorothiazide (Microzide) 12.5 mg PO DAILY [facility] Last Admin: 03/20/17 09:48 Dose: 12.5 mg Vancomycin HCl 1,000 mg/ (Sodium Chloride) 250 mls @ 166.6 mls/hr IVPB Q12H [facility] Last Admin: 03/20/17 12:12 Dose: 166.6 mls/hr Azithromycin 500 mg/ Sodium (Chloride) 250 mls @ 166.667 mls/hr IVPB Q24H [facility] Last Admin: 03/19/17 19:51 Dose: 166.667 mls/hr Imipenem/Cilastatin Sodium 500 (mg/ Sodium Chloride) 100 mls @ 100 mls/hr IVPB Q6H [facility] Last Admin: 03/20/17 08:21 Dose: 100 mls/hr Insulin Aspart (Novolog) 10 unit SC AC [facility] Last Admin: 03/20/17 12:13 Dose: 10 unit Insulin Glargine (Lantus) 20 unit SC Q12H [facility] Last Admin: 03/20/17 07:09 Dose: 20 units Insulin Human Regular (Novolin R) 0 unit SC ACHS [facility] PRN Reason: Protocol Last Admin: 03/20/17 12:13 Dose: 6 unit Lactulose (Enulose) 20 gm PO Q4H [facility] Last Admin: 03/20/17 09:48 Dose: 20 gm Losartan Potassium (Cozaar) 50 mg PO DAILY [facility] Last Admin: 03/20/17 09:48 Dose: 50 mg Ondansetron HCl (Zofran Inj) 4 mg IVP Q6 PRN PRN Reason: Nausea/Vomiting Pantoprazole Sodium (Protonix Ec Tab) 40 mg PO DAILY [facility] Last Admin: 03/20/17 09:48 Dose: 40 mg Rosuvastatin Calcium (Crestor) 10 mg PO HS [facility] Last Admin: 03/19/17 22:25 Dose: 10 mg Saccharomyces Boulardii (Florastor) 250 mg PO BID [facility] Last Admin: 03/20/17 09:48 Dose: 250 mg Zolpidem Tartrate (Ambien) 5 mg PO HS PRN PRN Reason: Insomnia Last Admin: 03/19/17 22:30 Dose: 5 mg - Labs Labs: 03/20/17 08:33 03/20/17 08:33 PT 14.2 SECONDS (9.7-12.2) H 03/17/17 07:08 INR 1.3 03/17/17 07:08 APTT 28 SECONDS (21-34) 03/17/17 07:08 - Constitutional Appears: No Acute Distress - Head Exam Head Exam: ATRAUMATIC, NORMOCEPHALIC - Eye Exam Eye Exam: EOMI, PERRL - ENT Exam ENT Exam: Mucous Membranes Moist. absent: Mucous Membranes Dry - Neck Exam Neck Exam: Full ROM. absent: Lymphadenopathy - Respiratory Exam Respiratory Exam: Decreased Breath Sounds. absent: Rales, Rhonchi Additional comments: Decreased breath sounds on the right side - Cardiovascular Exam Cardiovascular Exam: Gallop, +S1, +S2 - GI/Abdominal Exam GI & Abdominal Exam: Soft. absent: Distended, Tenderness - Extremities Exam Extremities Exam: Full ROM. absent: Pedal Edema - Neurological Exam Neurological Exam: Alert, Awake, Oriented x3 - Psychiatric Exam Psychiatric exam: Normal Affect, Normal Mood - Skin Skin Exam: Normal Color, Warm Assessment and Plan - Assessment and Plan (Free Text) Assessment: Sepsis: WBC 11.2, much improved Afebrile, nontachycardic Lactate 2.0 Initial procalcitonin 14.7 Repeat procalcitonin 2.09, improving Sputum cultures normal Blood cultures no growth after 4 days Urine no cultures no growth Primaxin 250 mg IV q6h Vancomycin 1 gm IV q12h Azithromycin 500 mg IV qd Pneumonia: Initial CXR - consolidation involving Right jae diaphragm (inferior RUL, RML, and RLL) and small right pleural effusion (see full report) Repeat CXR - biapical pleural thickening, prominent right air space consolidative changes inthe right mid to lower lung zone with associated small right pleural effusion. Diffuse increased interstitial lung markings (please see full report) WBC 11.2, much improved Lactic Acid 2.0 Initial Procalcitonin 14.7 Repeat procalcitonin 2.09, improving Primaxin 500 mg IV q6h Vancomycin 1 gm IV q12h Azithromycin 500 mg IV qd Infectious Disease, Dr. Pan, consulted. Help appreciated. Chest/Abd/Pelvis CT w/o contrast - extensive patchy infiltrates throughout the right hemithorax; bibasilar ateletasis, infilrates; indeterminate right axillary mass; no abdominal or pelvic ascites; enlarged prostate gland (please see full report) Pulmonology, Dr. Gaines, consulted. Help appreciated. Elevated D-Dimer: D-dimer - 862 V/Q scan - low probability for PE (please see full report) B/L lower extremity venous dopplers- no evidence of DVTs bilaterally (please see full report) Peripheral Vascular Disease: Vascular Surgery, Dr. Del Real, consulted. Help appreciated. Angiography ileofemoral runoff - distal SFA patent patient with mild instent; remarkable common femoral artery and posterior tibial artery; possible areas of stenosis within the proximal peroneal artery (please see full report) CHF: Cardiology, Dr. Clark, consulted. Help appreciated. Echo pending Troponins x 30.0220, 0.0600, 0.0390 Pro-BNP 48 Lasix 20 mg po qd COPD: Duonebs prn HTN: Home medications held due to sepsis; maintain blood pressure Diabetes Mellitus: Insulin sliding scale Accuchecks Coronary artery disease: ASA 81 mg PO daily Crestor 10 mg PO HS Hyperlipidemia: Crestor 10 mg PO HS Prophylactic Measures: DVT: Heparin 5,000 units SC Q8H, SCDs contraindicated due to lower extremity pain GI: Protonix 40 mg PO daily <Emory Dobbins H - Last Filed: 03/20/17 15:27> Objective - Vital Signs/Intake and Output Vital Signs (last 24 hours): Temp Pulse Resp BP Pulse Ox 97.8 F 61 106 H 142/87 97 03/20/17 07:00 03/20/17 09:00 03/20/17 07:00 03/20/17 09:48 03/20/17 07:00 - Medications Medications: Current Medications Albuterol/Ipratropium (Duoneb 3 Mg/0.5 Mg (3 Ml) Ud) 3 ml INH RQ4 [facility] Last Admin: 03/20/17 11:12 Dose: 3 ml Artificial Tears (Artificial Tears) 1 ml OU Q4 PRN PRN Reason: Dry eyes Last Admin: 03/20/17 08:27 Dose: 1 drop Aspirin (Ecotrin) 81 mg PO DAILY [facility] Last Admin: 03/20/17 09:48 Dose: 81 mg Docusate Sodium (Colace) 100 mg PO DAILY [facility] Last Admin: 03/20/17 09:48 Dose: 100 mg Furosemide (Lasix) 20 mg IVP DAILY [facility] Last Admin: 03/20/17 09:48 Dose: 20 mg Heparin Sodium (Porcine) (Heparin) 5,000 units SC Q8 [facility] Last Admin: 03/20/17 14:17 Dose: 5,000 units Hydrochlorothiazide (Microzide) 12.5 mg PO DAILY [facility] Last Admin: 03/20/17 09:48 Dose: 12.5 mg Vancomycin HCl 1,000 mg/ (Sodium Chloride) 250 mls @ 166.6 mls/hr IVPB Q12H [facility] Last Admin: 03/20/17 12:12 Dose: 166.6 mls/hr Azithromycin 500 mg/ Sodium (Chloride) 250 mls @ 166.667 mls/hr IVPB Q24H [facility] Last Admin: 03/19/17 19:51 Dose: 166.667 mls/hr Imipenem/Cilastatin Sodium 500 (mg/ Sodium Chloride) 100 mls @ 100 mls/hr IVPB Q6H [facility] Last Admin: 03/20/17 14:22 Dose: 100 mls/hr Insulin Aspart (Novolog) 10 unit SC AC [facility] Last Admin: 03/20/17 12:13 Dose: 10 unit Insulin Glargine (Lantus) 20 unit SC Q12H [facility] Last Admin: 03/20/17 07:09 Dose: 20 units Insulin Human Regular (Novolin R) 0 unit SC ACHS [facility] PRN Reason: Protocol Last Admin: 03/20/17 12:13 Dose: 6 unit Lactulose (Enulose) 20 gm PO Q4H [facility] Last Admin: 03/20/17 14:21 Dose: 20 gm Losartan Potassium (Cozaar) 50 mg PO DAILY [facility] Last Admin: 03/20/17 09:48 Dose: 50 mg Ondansetron HCl (Zofran Inj) 4 mg IVP Q6 PRN PRN Reason: Nausea/Vomiting Pantoprazole Sodium (Protonix Ec Tab) 40 mg PO DAILY [facility] Last Admin: 03/20/17 09:48 Dose: 40 mg Rosuvastatin Calcium (Crestor) 10 mg PO HS [facility] Last Admin: 03/19/17 22:25 Dose: 10 mg Saccharomyces Boulardii (Florastor) 250 mg PO BID [facility] Last Admin: 03/20/17 09:48 Dose: 250 mg Zolpidem Tartrate (Ambien) 5 mg PO HS PRN PRN Reason: Insomnia Last Admin: 03/19/17 22:30 Dose: 5 mg - Labs Labs: 03/20/17 08:33 03/20/17 08:33 PT 14.2 SECONDS (9.7-12.2) H 03/17/17 07:08 INR 1.3 03/17/17 07:08 APTT 28 SECONDS (21-34) 03/17/17 07:08 Attending/Attestation - Attestation I have personally seen and examined this patient.: Yes I have fully participated in the care of the patient.: Yes I have reviewed all pertinent clinical information, including history, physical exam and plan: Yes Notes (Text): Medical Attending: Patient was seen and examined by me. Agree with the above note by the resident The patient was able to ambulate in the room, he states that his breathing is well he is not short of breath when he tries to walk. He also denied having chest pain when he walks as well. The patient has had a rather remarkable turnaround in his labs. His white blood cell count is finally come down to 11, bandemia count is also decreased as well , the pro-calcitonin count is also decreased as well. This being said we were not able to grow any blood culture so far they've remain negative for the past 4 days now the other cultures are also negative as well. So while I am glad that the his numbers are better and he is feeling far better and looking better , it would've been nice to know what, bacteria we were treating this being said he's currently on vancomycin and primaxin Hopefully will discharge patient tomorrow Thank you very much, Emory Dobbins
[2017-03-20 16:07] VITALS: PULSE 98; RESP 20
--- NOTE | 2017-03-20 18:07 | CP.PCM.PN ---
Subjective - Date & Time of Evaluation Date of Evaluation: 03/20/17 Time of Evaluation: 01:45 - Subjective Subjective: dictated Objective - Vital Signs/Intake and Output Vital Signs (last 24 hours): Temp Pulse Resp BP Pulse Ox 98.0 F 98 H 20 132/77 94 L 03/20/17 15:50 03/20/17 15:50 03/20/17 15:50 03/20/17 15:50 03/20/17 15:50 - Medications Medications: Current Medications Albuterol/Ipratropium (Duoneb 3 Mg/0.5 Mg (3 Ml) Ud) 3 ml INH RQ4 [facility] Last Admin: 03/20/17 16:19 Dose: 3 ml Artificial Tears (Artificial Tears) 1 ml OU Q4 PRN PRN Reason: Dry eyes Last Admin: 03/20/17 08:27 Dose: 1 drop Aspirin (Ecotrin) 81 mg PO DAILY [facility] Last Admin: 03/20/17 09:48 Dose: 81 mg Docusate Sodium (Colace) 100 mg PO DAILY [facility] Last Admin: 03/20/17 09:48 Dose: 100 mg Furosemide (Lasix) 20 mg IVP DAILY [facility] Last Admin: 03/20/17 09:48 Dose: 20 mg Heparin Sodium (Porcine) (Heparin) 5,000 units SC Q8 [facility] Last Admin: 03/20/17 14:17 Dose: 5,000 units Hydrochlorothiazide (Microzide) 12.5 mg PO DAILY [facility] Last Admin: 03/20/17 09:48 Dose: 12.5 mg Vancomycin HCl 1,000 mg/ (Sodium Chloride) 250 mls @ 166.6 mls/hr IVPB Q12H [facility] Last Admin: 03/20/17 12:12 Dose: 166.6 mls/hr Azithromycin 500 mg/ Sodium (Chloride) 250 mls @ 166.667 mls/hr IVPB Q24H [facility] Last Admin: 03/19/17 19:51 Dose: 166.667 mls/hr Imipenem/Cilastatin Sodium 500 (mg/ Sodium Chloride) 100 mls @ 100 mls/hr IVPB Q6H [facility] Last Admin: 03/20/17 14:22 Dose: 100 mls/hr Insulin Aspart (Novolog) 10 unit SC AC [facility] Last Admin: 03/20/17 12:13 Dose: 10 unit Insulin Glargine (Lantus) 20 unit SC Q12H [facility] Last Admin: 03/20/17 07:09 Dose: 20 units Insulin Human Regular (Novolin R) 0 unit SC ACHS [facility] PRN Reason: Protocol Last Admin: 03/20/17 12:13 Dose: 6 unit Lactulose (Enulose) 20 gm PO Q4H [facility] Last Admin: 03/20/17 14:21 Dose: 20 gm Losartan Potassium (Cozaar) 50 mg PO DAILY [facility] Last Admin: 03/20/17 09:48 Dose: 50 mg Ondansetron HCl (Zofran Inj) 4 mg IVP Q6 PRN PRN Reason: Nausea/Vomiting Pantoprazole Sodium (Protonix Ec Tab) 40 mg PO DAILY [facility] Last Admin: 03/20/17 09:48 Dose: 40 mg Rosuvastatin Calcium (Crestor) 10 mg PO HS [facility] Last Admin: 03/19/17 22:25 Dose: 10 mg Saccharomyces Boulardii (Florastor) 250 mg PO BID [facility] Last Admin: 03/20/17 09:48 Dose: 250 mg Zolpidem Tartrate (Ambien) 5 mg PO HS PRN PRN Reason: Insomnia Last Admin: 03/19/17 22:30 Dose: 5 mg - Labs Labs: 03/20/17 08:33 03/20/17 08:33 PT 14.2 SECONDS (9.7-12.2) H 03/17/17 07:08 INR 1.3 03/17/17 07:08 APTT 28 SECONDS (21-34) 03/17/17 07:08
[2017-03-20] MEDS: Azithromycin 500 MG in Sodium Chloride 0.9% 250 ML IVPB SCH (18:56)
[2017-03-21] MEDS: Albuterol-Ipratrop 3 mg / 0.5 (3 ml) UD INH SCH ×4 (01:00→11:13)
[2017-03-21] MEDS: (Lantus) Insulin Glargine, Recombinant SC SCH (06:45)
--- NOTE | 2017-03-21 06:56 | PN ---
DATE: 03/20/2017 The patient says he is feeling better. He is breathing easier. He has no fever. PHYSICAL EXAMINATION: VITAL SIGNS: Temperature is 98, pulse was still 98, respirations are 20, blood pressure 132/77 and h e says his legs were not hurting anymore, saturation is 94%. HEENT: Head is atraumatic, normocephalic. NECK: Supple. LUNGS: Decreased breath sounds bilaterally. HEART: S1, S2 is regular. ABDOMEN: Soft, prominent. No guarding, no rigidity present. EXTREMITIES: Have no edema, clubbing, or cyanosis at this time. His white count is 11.2, hemoglobin is 13.3, hematocrit 42.3, platelet count is 257 and eosinophil co unts are 4.4. Sodium is 133, potassium is 4.1, chloride is 98, CO2 is 24, BUN is 15, creatinine 0.9. His sugars are still not controlled, is 367. Legionella, mycoplasma all came negative. His white count has now decreased. His ABG is being monitored. Hematology mcpherson, his white count has come down significantly and he is on DuoNeb, he is on Zithromax and he is on imipenem, so we started on . Today is the fourth day, so I would give him for 5-7 d ays and he also had an abdominal angiography done and the angiography shows pelvis and bilateral ____ _ it needs to be read by the vascular. I cannot make anything out of this, but he is being treated f or pneumonia and he is on other medications for hypertension and he is diabetic and he is on a lot of antibiotics at this time and we do not have a sputum to go by. Sputum came back normal anjelica, so we will see if we have to give him 5-7 days to make sure he is breathing better. Leda Pan MD cc: [id number] TT: 03/20/2017 18:36:49 Confirmation # [id number] Dictation # [id number]
[2017-03-21 07:48] LABS: BASO # 0.1 K/uL (0.0-0.2); BASO % 0.5 % (0.0-2.0); EOS # 1.7 K/uL (0.0-0.7); EOS % 14.6 % (0.0-4.0); HEMATOCRIT 39.5 % (35.0-51.0); LYMPH # 2.2 K/uL (1.0-4.3); LYMPH % 18.9 % (20.0-40.0); MEAN CELL VOLUME 75.1 fL (80.0-94.0); MEAN CORPUSCULAR HEMOGLOBIN 23.6 pg (27.0-31.0); MEAN CORPUSCULAR HGB CONC 31.4 g/dL (33.0-37.0); MEAN PLATELET VOLUME 9.5 fL (7.2-11.7); MONO % 8.7 % (0.0-10.0); RED CELL DISTRIBUTION WIDTH 16.5 % (11.5-14.5); WHITE BLOOD COUNT 11.6 K/uL (4.8-10.8)
[2017-03-21 07:51] LABS: CHLORIDE 98 mmol/L (98-107); POTASSIUM 4.6 mmol/L (3.6-5.2); SODIUM 131 mmol/L (132-148)
[2017-03-21 07:53] LABS: AST/SGOT 19 U/L (17-59); BILIRUBIN,TOTAL 0.8 mg/dL (0.2-1.3); CARBON DIOXIDE 24 mmol/L (22-30); GFR AFRICAN-AMERICAN > 60
[2017-03-21 07:54] LABS: ALB/GLOB RATIO 1.1 (1.0-2.1); ALKALINE PHOSPHATASE 76 U/L (38-126); ALT/SGPT 69 U/L (21-72); BLOOD UREA NITROGEN 19 mg/dL (9-20); CALCIUM 8.3 mg/dl (8.6-10.4); GLUCOSE,RANDOM 371 mg/dL (75-110); MAGNESIUM 1.9 mg/dL (1.6-2.3); PHOSPHOROUS 3.7 mg/dL (2.5-4.5); TOTAL PROTEIN 6.4 g/dL (6.3-8.3)
[2017-03-21 08:22] VITALS: TEMP 97.8
--- NOTE | 2017-03-21 08:28 | CP.PCM.PN ---
Subjective - Date & Time of Evaluation Date of Evaluation: 03/21/17 Time of Evaluation: 08:48 - Subjective Subjective: no complaints no cp Objective - Vital Signs/Intake and Output Vital Signs (last 24 hours): Temp Pulse Resp BP Pulse Ox 97.8 F 98 H 20 133/77 93 L 03/21/17 07:10 03/21/17 07:10 03/21/17 07:10 03/21/17 07:10 03/21/17 07:10 Intake and Output: 03/21/17 03/21/17 06:59 18:59 Output Total 600 Balance -600 - Medications Medications: Current Medications Albuterol/Ipratropium (Duoneb 3 Mg/0.5 Mg (3 Ml) Ud) 3 ml INH RQ4 [facility] Last Admin: 03/21/17 07:58 Dose: 3 ml Artificial Tears (Artificial Tears) 1 ml OU Q4 PRN PRN Reason: Dry eyes Last Admin: 03/20/17 08:27 Dose: 1 drop Aspirin (Ecotrin) 81 mg PO DAILY [facility] Last Admin: 03/20/17 09:48 Dose: 81 mg Docusate Sodium (Colace) 100 mg PO DAILY [facility] Last Admin: 03/20/17 09:48 Dose: 100 mg Furosemide (Lasix) 20 mg IVP DAILY [facility] Last Admin: 03/20/17 09:48 Dose: 20 mg Heparin Sodium (Porcine) (Heparin) 5,000 units SC Q8 [facility] Last Admin: 03/21/17 06:46 Dose: 5,000 units Hydrochlorothiazide (Microzide) 12.5 mg PO DAILY [facility] Last Admin: 03/20/17 09:48 Dose: 12.5 mg Vancomycin HCl 1,000 mg/ (Sodium Chloride) 250 mls @ 166.6 mls/hr IVPB Q12H [facility] Last Admin: 03/21/17 00:01 Dose: 166.6 mls/hr Azithromycin 500 mg/ Sodium (Chloride) 250 mls @ 166.667 mls/hr IVPB Q24H [facility] Last Admin: 03/20/17 18:56 Dose: 166.667 mls/hr Imipenem/Cilastatin Sodium 500 (mg/ Sodium Chloride) 100 mls @ 100 mls/hr IVPB Q6H [facility] Last Admin: 03/21/17 02:36 Dose: 100 mls/hr Insulin Aspart (Novolog) 10 unit SC AC [facility] Last Admin: 03/20/17 18:20 Dose: 10 unit Insulin Glargine (Lantus) 20 unit SC Q12H [facility] Last Admin: 03/21/17 06:45 Dose: 20 units Insulin Human Regular (Novolin R) 0 unit SC ACHS [facility] PRN Reason: Protocol Last Admin: 03/20/17 22:30 Dose: 2 unit Lactulose (Enulose) 20 gm PO Q4H [facility] Last Admin: 03/20/17 21:26 Dose: Not Given Losartan Potassium (Cozaar) 50 mg PO DAILY [facility] Last Admin: 03/20/17 09:48 Dose: 50 mg Ondansetron HCl (Zofran Inj) 4 mg IVP Q6 PRN PRN Reason: Nausea/Vomiting Pantoprazole Sodium (Protonix Ec Tab) 40 mg PO DAILY [facility] Last Admin: 03/20/17 09:48 Dose: 40 mg Rosuvastatin Calcium (Crestor) 10 mg PO HS [facility] Last Admin: 03/20/17 21:25 Dose: 10 mg Saccharomyces Boulardii (Florastor) 250 mg PO BID [facility] Last Admin: 03/20/17 18:20 Dose: 250 mg Zolpidem Tartrate (Ambien) 5 mg PO HS PRN PRN Reason: Insomnia Last Admin: 03/20/17 22:29 Dose: 5 mg - Labs Labs: 03/21/17 07:17 03/21/17 07:17 PT 14.2 SECONDS (9.7-12.2) H 03/17/17 07:08 INR 1.3 03/17/17 07:08 APTT 28 SECONDS (21-34) 03/17/17 07:08 - Constitutional Appears: Well - Head Exam Head Exam: NORMOCEPHALIC - Eye Exam Eye Exam: Normal appearance - ENT Exam ENT Exam: Mucous Membranes Moist - Respiratory Exam Respiratory Exam: Clear to Ausculation Bilateral - Cardiovascular Exam Cardiovascular Exam: REGULAR RHYTHM - GI/Abdominal Exam GI & Abdominal Exam: Normal Bowel Sounds - Exam External exam: NORMAL EXTERNAL EXAM - Extremities Exam Extremities Exam: Normal Inspection - Neurological Exam Neurological Exam: Alert, Awake - Psychiatric Exam Psychiatric exam: Normal Mood - Skin Skin Exam: Dry Assessment and Plan (1) Chest pain Assessment & Plan: continue asa and crestor rate controlled Status: Acute (2) Sinus tachycardia Status: Acute
[2017-03-21] MEDS: (Novolog) Insulin Aspart, Recombinant 100 u/ml 10 ml vial SC SCH ×2 (08:37→12:21)
[2017-03-21] MEDS: (Novolin R) Insulin Human Regular 100 units/ml vial SC SCH ×2 (08:37→12:23)
[2017-03-21] MEDS: Pantoprazole 40 mg EC Tab PO SCH (09:36)
[2017-03-21] MEDS: Saccharomyces Boulardi 250 mg Cap PO SCH (09:36)
[2017-03-21] MEDS: Aritificial Tears (15ml) OU PRN (09:36)
[2017-03-21 09:39] VITALS: BP 133/70
--- NOTE | 2017-03-21 13:48 | CP.PCM.PN ---
Subjective - Date & Time of Evaluation Date of Evaluation: 03/21/17 Time of Evaluation: 01:00 - Subjective Subjective: dictated Objective - Vital Signs/Intake and Output Vital Signs (last 24 hours): Temp Pulse Resp BP Pulse Ox 97.8 F 98 H 20 133/70 93 L 03/21/17 07:10 03/21/17 07:10 03/21/17 07:10 03/21/17 09:36 03/21/17 07:10 Intake and Output: 03/21/17 03/21/17 06:59 18:59 Output Total 600 Balance -600 - Medications Medications: Current Medications Albuterol/Ipratropium (Duoneb 3 Mg/0.5 Mg (3 Ml) Ud) 3 ml INH RQ4 [facility] Last Admin: 03/21/17 11:13 Dose: 3 ml Artificial Tears (Artificial Tears) 1 ml OU Q4 PRN PRN Reason: Dry eyes Last Admin: 03/21/17 09:36 Dose: 2 drop Aspirin (Ecotrin) 81 mg PO DAILY [facility] Last Admin: 03/21/17 09:36 Dose: 81 mg Docusate Sodium (Colace) 100 mg PO DAILY [facility] Last Admin: 03/21/17 09:36 Dose: 100 mg Furosemide (Lasix) 20 mg IVP DAILY [facility] Last Admin: 03/21/17 09:36 Dose: 20 mg Heparin Sodium (Porcine) (Heparin) 5,000 units SC Q8 [facility] Last Admin: 03/21/17 06:46 Dose: 5,000 units Hydrochlorothiazide (Microzide) 12.5 mg PO DAILY [facility] Last Admin: 03/21/17 09:36 Dose: 12.5 mg Vancomycin HCl 1,000 mg/ (Sodium Chloride) 250 mls @ 166.6 mls/hr IVPB Q12H [facility] Last Admin: 03/21/17 13:35 Dose: 166.6 mls/hr Azithromycin 500 mg/ Sodium (Chloride) 250 mls @ 166.667 mls/hr IVPB Q24H [facility] Last Admin: 03/20/17 18:56 Dose: 166.667 mls/hr Imipenem/Cilastatin Sodium 500 (mg/ Sodium Chloride) 100 mls @ 100 mls/hr IVPB Q6H [facility] Last Admin: 03/21/17 12:09 Dose: 100 mls/hr Insulin Aspart (Novolog) 10 unit SC AC [facility] Last Admin: 03/21/17 12:21 Dose: 10 unit Insulin Glargine (Lantus) 20 unit SC Q12H [facility] Last Admin: 03/21/17 06:45 Dose: 20 units Insulin Human Regular (Novolin R) 0 unit SC ACHS [facility] PRN Reason: Protocol Last Admin: 03/21/17 12:23 Dose: 6 unit Lactulose (Enulose) 20 gm PO Q4H [facility] Last Admin: 03/21/17 09:41 Dose: Not Given Losartan Potassium (Cozaar) 50 mg PO DAILY [facility] Last Admin: 03/21/17 09:36 Dose: 50 mg Ondansetron HCl (Zofran Inj) 4 mg IVP Q6 PRN PRN Reason: Nausea/Vomiting Pantoprazole Sodium (Protonix Ec Tab) 40 mg PO DAILY [facility] Last Admin: 03/21/17 09:36 Dose: 40 mg Rosuvastatin Calcium (Crestor) 10 mg PO HS [facility] Last Admin: 03/20/17 21:25 Dose: 10 mg Saccharomyces Boulardii (Florastor) 250 mg PO BID [facility] Last Admin: 03/21/17 09:36 Dose: 250 mg Zolpidem Tartrate (Ambien) 5 mg PO HS PRN PRN Reason: Insomnia Last Admin: 03/20/17 22:29 Dose: 5 mg - Labs Labs: 03/21/17 07:17 03/21/17 07:17 PT 14.2 SECONDS (9.7-12.2) H 03/17/17 07:08 INR 1.3 03/17/17 07:08 APTT 28 SECONDS (21-34) 03/17/17 07:08
--- NOTE | 2017-03-21 14:07 | PN ---
DATE: 03/21/2017 SUBJECTIVE: The patient is feeling better. He is still tachycardic, however. PHYSICAL EXAMINATION: VITAL SIGNS: T-max is 97.8, heart rate is 98, blood pressure 133/72, respirations are 20. He denies any cough. HEENT: Head is atraumatic, normocephalic. NECK: Supple. LUNGS: Clear. No crackles or rales present. Decreased breath sounds bilaterally. HEART: S1, S2 regular. ABDOMEN: Soft, nontender, no guarding, no rigidity present. EXTREMITIES: No edema, clubbing or cyanosis. MEDICATIONS: He is on vancomycin, imipenem and Zithromax. LABORATORY DATA: Labs show legionella and mycoplasma came out negative. Blood cultures x 2 is negat macy. Sputum is negative. Urine culture is negative. He had a chest CT, which showed biapical pleur al thickening, shows bullous changes in the apices, extensive patchy infiltrates throughout the right hemithorax, bibasilar atelectasis, oblique infiltrate. He is status post surgery. At this time, he is on 3 antibiotics. We have mycoplasma and legionella negative, so will take off the Zithromax and leave him on vancomycin and Zosyn at this time and will follow. He probably can go home on Friday if he is stable. He had extensive pneumonia, so we will c ontinue the antibiotics at this time. Leda Pan MD cc: [id number] TT: 03/21/2017 14:07:31 Confirmation # [id number] Dictation # [id number] allison
--- NOTE | 2017-03-21 14:23 | CP.PCM.DIS ---
<Jose Nicolas - Last Filed: 03/23/17 01:39> Provider - Provider Date of Admission: 03/16/17 11:47 Attending physician: Evan Levine MD Time Spent in preparation of Discharge (in minutes): 37 Hospital Course - Lab Results Lab Results: Micro Results 03/17/17 05:41 Sputum Gram Stain - Final 03/17/17 05:41 Sputum Sputum Culture - Final NORMAL ORAL LYNNETTE 03/17/17 06:08 Urine,Clean Catch Urine Culture - Final No Growth (<1,000 CFU/ML) Most Recent Lab Values WBC 11.6 K/uL (4.8-10.8) H 03/21/17 07:17 RBC 5.26 Mil/uL (4.40-5.90) 03/21/17 07:17 Hgb 12.4 g/dL (12.0-18.0) 03/21/17 07:17 Hct 39.5 % (35.0-51.0) 03/21/17 07:17 MCV 75.1 fL (80.0-94.0) L 03/21/17 07:17 MCH 23.6 pg (27.0-31.0) L 03/21/17 07:17 MCHC 31.4 g/dL (33.0-37.0) L 03/21/17 07:17 RDW 16.5 % (11.5-14.5) H 03/21/17 07:17 Plt Count 267 K/uL (130-400) 03/21/17 07:17 MPV 9.5 fL (7.2-11.7) 03/21/17 07:17 Neut % (Auto) 57.3 % (50.0-75.0) 03/21/17 07:17 Lymph % (Auto) 18.9 % (20.0-40.0) L 03/21/17 07:17 Sum[place] % (Auto) 8.7 % (0.0-10.0) 03/21/17 07:17 Eos % (Auto) 14.6 % (0.0-4.0) H 03/21/17 07:17 Baso % (Auto) 0.5 % (0.0-2.0) 03/21/17 07:17 Neut # 6.6 K/uL (1.8-7.0) 03/21/17 07:17 Lymph # 2.2 K/uL (1.0-4.3) 03/21/17 07:17 Sum[place] # 1.0 K/uL (0.0-0.8) H 03/21/17 07:17 Eos # 1.7 K/uL (0.0-0.7) H 03/21/17 07:17 Baso # 0.1 K/uL (0.0-0.2) 03/21/17 07:17 Neutrophils % (Manual) 71 % (50-75) 03/18/17 06:35 Band Neutrophils % 21 % (0-2) H* 03/18/17 06:35 Lymphocytes % (Manual) 3 % (20-40) L 03/18/17 06:35 Monocytes % (Manual) 4 % (0-10) 03/18/17 06:35 Eosinophils % (Manual) 1 % (0-4) 03/18/17 06:35 Platelet Estimate Normal (NORMAL) 03/18/17 06:35 Large Platelets Present 03/17/17 07:08 Polychromasia Slight 03/18/17 06:35 Hypochromasia (manual) Slight 03/18/17 06:35 Poikilocytosis (manual Slight 03/16/17 09:19 Anisocytosis (manual) Slight 03/18/17 06:35 Microcytosis (manual) Slight 03/18/17 06:35 Ovalocytes Slight 03/18/17 06:35 PT 14.2 SECONDS (9.7-12.2) H 03/17/17 07:08 INR 1.3 03/17/17 07:08 APTT 28 SECONDS (21-34) 03/17/17 07:08 D-Dimer, Quantitative 862 ng/mlDDU (0-243) H 03/17/17 01:30 Puncture Site Lr 03/18/17 10:08 pCO2 34 mm/Hg (35-45) L 03/18/17 10:08 pO2 51 mm/Hg (30-55) 03/18/17 22:10 HCO3 24.2 mmol/L (21-28) 03/18/17 10:08 ABG pH 7.44 (7.35-7.45) 03/18/17 10:08 ABG Total CO2 24.1 mmol/L (22-28) 03/18/17 10:08 ABG O2 Saturation 90.2 % (95-98) L 03/18/17 10:08 ABG Base Excess -0.5 mmol/L (-2.0-3.0) 03/18/17 10:08 Winston Test Po 03/18/17 10:08 ABG Potassium 4.6 mmol/L (3.6-5.2) 03/18/17 10:08 VBG pH 7.45 (7.32-7.43) H 03/18/17 22:10 VBG pCO2 30 mmHg (40-60) L 03/18/17 22:10 VBG HCO3 23.0 mmol/L 03/18/17 22:10 VBG Total CO2 21.8 mmol/L (22-28) L 03/18/17 22:10 VBG O2 Sat (Calc) 88.2 % (40-65) H 03/18/17 22:10 VBG Base Excess -2.1 mmol/L (0.0-2.0) L 03/18/17 22:10 VBG Potassium 4.2 mmol/L (3.6-5.2) 03/18/17 22:10 A-a O2 Difference 57.0 mm/Hg 03/18/17 10:08 Respiratory Index 1.1 03/18/17 10:08 Sodium 137.0 mmol/l (132-148) 03/18/17 22:10 Chloride 108.0 mmol/L (98-107) H 03/18/17 22:10 Glucose 353 mg/dl (75-110) H 03/18/17 22:10 Lactate 2.0 mmol/L (0.7-2.1) 03/18/17 22:10 FiO2 21.0 % 03/18/17 10:08 Sodium 131 mmol/L (132-148) L 03/21/17 07:17 Potassium 4.6 mmol/L (3.6-5.2) 03/21/17 07:17 Chloride 98 mmol/L (98-107) 03/21/17 07:17 Carbon Dioxide 24 mmol/L (22-30) 03/21/17 07:17 Anion Gap 14 (10-20) 03/21/17 07:17 BUN 19 mg/dL (9-20) 03/21/17 07:17 Creatinine 0.9 MG/DL (0.8-1.5) 03/21/17 07:17 Est GFR ( Amer) > 60 03/21/17 07:17 Est GFR (Non-Af Amer) > 60 03/21/17 07:17 POC Glucose (mg/dL) 299 mg/dL (65-110) H 03/21/17 11:12 Random Glucose 371 mg/dL (75-110) H 03/21/17 07:17 Lactic Acid 1.8 mmol/L (0.7-2.1) 03/21/17 07:17 Calcium 8.3 mg/dl (8.6-10.4) L 03/21/17 07:17 Phosphorus 3.7 mg/dL (2.5-4.5) 03/21/17 07:17 Magnesium 1.9 mg/dL (1.6-2.3) 03/21/17 07:17 Total Bilirubin 0.8 mg/dL (0.2-1.3) 03/21/17 07:17 AST 19 U/L (17-59) 03/21/17 07:17 ALT 69 U/L (21-72) 03/21/17 07:17 Alkaline Phosphatase 76 U/L (38-126) 03/21/17 07:17 Total Creatine Kinase 88 U/L (55-170) 03/16/17 22:26 CK-MB (Mass) 2.37 ng/mL (0.0-3.38) 03/16/17 22:26 Troponin I 0.0220 ng/mL (0.00-0.120) 03/16/17 09:19 Troponin I, Quant 0.0390 ng/mL (0.00-0.120) 03/16/17 22:26 NT-Pro-B Natriuret Pep 48.0 pg/mL (0-900) 03/16/17 09:19 Total Protein 6.4 g/dL (6.3-8.3) 03/21/17 07:17 Albumin 3.3 g/dL (3.5-5.0) L 03/21/17 07:17 Globulin 3.1 gm/dL (2.2-3.9) 03/21/17 07:17 Albumin/Globulin Ratio 1.1 (1.0-2.1) 03/21/17 07:17 Triglycerides 147 mg/dL (0-149) D 03/16/17 14:29 Cholesterol 141 mg/dL (0-199) 03/16/17 14:29 LDL Cholesterol Direct 40 mg/dL (0-129) 03/16/17 14:29 HDL Cholesterol 56 mg/dL (30-70) 03/16/17 14:29 Prostate Specific Ag 3.87 ng/mL (0.00-4.0) 03/18/17 21:28 Procalcitonin 2.09 NG/ML (0.19-0.49) H 03/20/17 10:01 Arterial Blood Potassium 4.6 mmol/L (3.6-5.2) 03/18/17 10:08 Venous Blood Potassium 4.2 mmol/L (3.6-5.2) 03/18/17 22:10 Ur L.pneumophila Ag Negative (NEGATIVE) 03/19/17 23:01 Mycoplasma pneumon IgM Negative (NEGATIVE) 03/20/17 08:33 - Hospital Course Hospital Course: HPI: Pt is 66 y/o M with PMH of DM, HTN, HLD, PAD, CAD, CHF, COPD presents to [facility] with complaint of SOB. Patient stated that SOB started yesterday while at home. He stated that it was a sudden onset and progressively has gotten worse. Patient was sitting at home when he noticed difficulty breathing, chest discomfort, and cough. He also had associated bilateral leg pain. Everything besides the shortness of breath soon resolved after taking Aspirin. Patient reported that he had similar symptoms previously when he was admitted last year for CHF exacerbation. Patient currently denying any pain. Nothing alleviates SOB while exertion exacerbates it. Patient sleeps with 2 pillows at night. ECHO was last done in 07/2016. Patient walks short distances before getting exhausted. Admits to chills, fatigue, cough, palpitations, pleuritic pain, nausea, and constipation. Denies fever, sputum production, diaphoresis, cp, numbness/tingling, vomiting, diarrhea, incontinence, and urinary complaints. Hospital Course: Pt initially presented with no leukocytosis, but the second day of admission pt was found to have a WBC count of 21.3. Pt was tachycardic at 114 bpm. Band neutrophils were 34 and lactic acid was 2.2. Initial procalcitonin was 14.7. Initial CXR revealed consolidation involving Right jae diaphragm (inferior RUL, RML, and RLL) and small right pleural effusion (see full report). D-dimer was elevated at 862. V/Q scan revealed low probability for PE (please see full report). B/L lower extremity venous dopplers revealed no evidence of DVTs bilaterally (please see full report). Dramatic Critic, Dr. Gaines, was consulted. Troponins x 30.0220, 0.0600, 0.0390, and Pro-BNP was 48. Pt was started on primaxin, vancomycin, and azithromycin. Chest/Abd/Pelvis CT w/ o contrast revealed extensive patchy infiltrates throughout the right hemithorax ; bibasilar ateletasis, infilrates; indeterminate right axillary mass; no abdominal or pelvic ascites; enlarged prostate gland (please see full report). Infectious Disease, Dr. Pan, was consulted. Echocardiogram revealed diastolic dysfunction and an ejection fraction of 71%. Pt also complained of b/ l leg pain. Vascular Surgery, Dr. Del Real, was consulted. Angiography ileofemoral runoff revealed distal SFA patent patient with mild instent; remarkable common femoral artery and posterior tibial artery; possible areas of stenosis within the proximal peroneal artery (please see full report). PT's white count improved down to 11.2 Pt remained afebrile. Physical therapy was requested. Lactic Acid improved. Pt was started on lasix as well. Repeat procalcitonin improved to 2.09. Pt improved clinically. Pt was able to ambulate with walker without getting short of breath. Discharge Exam - Head Exam Head Exam: ATRAUMATIC, NORMOCEPHALIC - Eye Exam Eye Exam: EOMI, PERRL - ENT Exam ENT Exam: Mucous Membranes Moist. absent: Mucous Membranes Dry - Respiratory Exam Respiratory Exam: Decreased Breath Sounds. absent: Rales, Rhonchi - Cardiovascular Exam Cardiovascular Exam: +S1, +S2 - GI/Abdominal Exam GI & Abdominal Exam: Soft. absent: Guarding - Extremities Exam Extremities exam: full ROM - Neurological Exam Neurological exam: Alert, Oriented x3 - Psychiatric Exam Psychiatric exam: Normal Affect, Normal Mood - Skin Skin Exam: Normal Color, Warm Discharge Plan - Discharge Medications Prescriptions: Amoxicillin/Clavulanate [Augmentin 875 MG-125 MG] 1 tab PO BID #8 tab Carvedilol [Coreg] 3.125 mg PO BID #60 tab Losartan [Cozaar] 50 mg PO DAILY #30 tab Rosuvastatin Calcium [Crestor] 10 mg PO HS #30 tab Aspirin [Ecotrin] 81 mg PO DAILY #30 tabec Furosemide [Lasix] 20 mg PO DAILY #14 tab hydroCHLOROthiazide [Microzide] 12.5 mg PO DAILY #30 cap - Follow Up Plan Condition: STABLE Disposition: HOME/ ROUTINE Instructions: Furosemide (By mouth), Hydrochlorothiazide (By mouth), Aspirin ( By mouth), Amoxicillin/Clavulanate Potassium (By mouth), Losartan (By mouth), Carvedilol (By mouth), Rosuvastatin (By mouth), Heart Failure (DC), Heart Healthy Diet (DC), COPD (Chronic Obstructive Pulmonary Disease) (DC), Pneumonia (DC) Additional Instructions: Please follow up with primary medical doctor. Dr. Tram Bledsoe, in her office on 03/24/17, at 4:00 pm. Please take new medications as prescribed , Augmentin, Coreg, Cozaar, Crestor, Aspirin, Lasix, and HCTZ. Please resume home medications Linzess, Victoza, and Levemir. If symptoms worsen, or new symptoms arise, please return to the hospital. Referrals: Tram Bledsoe MD [Family Provider] - Clinical Quality Measures - CQM - Heart Failure Ejection Fraction: 40 % or Greater Left Ventricular Function to be assessed after discharge: Yes EMIGDIO Inhibitor Prescribed: No Contraindication/Reason for not providing: on ARB Beta-Carline Prescribed: None Contraindication/Reason for not providing: as per cardio Angiotensin II Receptor Carline Prescribed: Yes AnticoagulationTherapy for Atrial Fibrillation/Atrialflutter: No Contraindication/Reason for not providing: no arrthymia Aldosterone Antagonist Prescribed: No Contraindication/Reason for not providing: as per cardio Hydralazine Nitrate Prescribed: No Contraindication/Reason for not providing: on ARB Implantable Cardioverter Defibrillator Therapy: No Contraindication/Reason for not providing: as per cardio Cardiac Resynchronization Therapy Prescribed: No Contraindication/Reason for not providing: asd per cardio Will be discharged to: Home Follow Up Date (must be within 7 days from discharge): 03/25/17 Follow Up Time: 09:00 <DobbinsEmory zavala H - Last Filed: 03/23/17 10:05> Provider - Provider Date of Admission: 03/16/17 11:47 Attending physician: Evan Levine MD Hospital Course - Lab Results Lab Results: Micro Results 03/17/17 05:41 Sputum Gram Stain - Final 03/17/17 05:41 Sputum Sputum Culture - Final NORMAL ORAL LYNNETTE 03/17/17 06:08 Urine,Clean Catch Urine Culture - Final No Growth (<1,000 CFU/ML) Most Recent Lab Values WBC 11.6 K/uL (4.8-10.8) H 03/21/17 07: RBC 5.26 Mil/uL (4.40-5.90) 03/21/17 07:17 Hgb 12.4 g/dL (12.0-18.0) 03/21/17 07: Hct 39.5 % (35.0-51.0) 03/21/17 07:17 MCV 75.1 fL (80.0-94.0) L 03/21/17 07:17 MCH 23.6 pg (27.0-31.0) L 03/21/17 07: MCHC 31.4 g/dL (33.0-37.0) L 03/21/17 07:17 RDW 16.5 % (11.5-14.5) H 03/21/17 07:17 Plt Count 267 K/uL (130-400) 03/21/17 07: MPV 9.5 fL (7.2-11.7) 03/21/17 07: Neut % (Auto) 57.3 % (50.0-75.0) 03/21/17 07:17 Lymph % (Auto) 18.9 % (20.0-40.0) L 03/21/17 07: Sum[place] % (Auto) 8.7 % (0.0-10.0) 03/21/17 07:17 Eos % (Auto) 14.6 % (0.0-4.0) H 03/21/17 07:17 Baso % (Auto) 0.5 % (0.0-2.0) 03/21/17 07:17 Neut # 6.6 K/uL (1.8-7.0) 03/21/17 07:17 Lymph # 2.2 K/uL (1.0-4.3) 03/21/17 07:17 [place] # 1.0 K/uL (0.0-0.8) H 03/21/17 07:17 Eos # 1.7 K/uL (0.0-0.7) H 03/21/17 07: Baso # 0.1 K/uL (0.0-0.2) 03/21/17 07:17 Neutrophils % (Manual) 71 % (50-75) 03/18/17 06:35 Band Neutrophils % 21 % (0-2) H* 03/18/17 06:35 Lymphocytes % (Manual) 3 % (20-40) L 03/18/17 06:35 Monocytes % (Manual) 4 % (0-10) 03/18/17 06:35 Eosinophils % (Manual) 1 % (0-4) 03/18/17 06:35 Platelet Estimate Normal (NORMAL) 03/18/17 06:35 Large Platelets Present 03/17/17 07:08 Polychromasia Slight 03/18/17 06:35 Hypochromasia (manual) Slight 03/18/17 06:35 Poikilocytosis (manual Slight 03/16/17 09:19 Anisocytosis (manual) Slight 03/18/17 06:35 Microcytosis (manual) Slight 03/18/17 06:35 Ovalocytes Slight 03/18/17 06:35 PT 14.2 SECONDS (9.7-12.2) H 03/17/17 07:08 INR 1.3 03/17/17 07:08 APTT 28 SECONDS (21-34) 03/17/17 07:08 D-Dimer, Quantitative 862 ng/mlDDU (0-243) H 03/17/17 01:30 Puncture Site Lr 03/18/17 10:08 pCO2 34 mm/Hg (35-45) L 03/18/17 10:08 pO2 51 mm/Hg (30-55) 03/18/17 22:10 HCO3 24.2 mmol/L (21-28) 03/18/17 10:08 ABG pH 7.44 (7.35-7.45) 03/18/17 10:08 ABG Total CO2 24.1 mmol/L (22-28) 03/18/17 10:08 ABG O2 Saturation 90.2 % (95-98) L 03/18/17 10:08 ABG Base Excess -0.5 mmol/L (-2.0-3.0) 03/18/17 10:08 Winston Test Po 03/18/17 10:08 ABG Potassium 4.6 mmol/L (3.6-5.2) 03/18/17 10:08 VBG pH 7.45 (7.32-7.43) H 03/18/17 22:10 VBG pCO2 30 mmHg (40-60) L 03/18/17 22:10 VBG HCO3 23.0 mmol/L 03/18/17 22:10 VBG Total CO2 21.8 mmol/L (22-28) L 03/18/17 22:10 VBG O2 Sat (Calc) 88.2 % (40-65) H 03/18/17 22:10 VBG Base Excess -2.1 mmol/L (0.0-2.0) L 03/18/17 22:10 VBG Potassium 4.2 mmol/L (3.6-5.2) 03/18/17 22:10 A-a O2 Difference 57.0 mm/Hg 03/18/17 10:08 Respiratory Index 1.1 03/18/17 10:08 Sodium 137.0 mmol/l (132-148) 03/18/17 22:10 Chloride 108.0 mmol/L (98-107) H 03/18/17 22:10 Glucose 353 mg/dl (75-110) H 03/18/17 22:10 Lactate 2.0 mmol/L (0.7-2.1) 03/18/17 22:10 FiO2 21.0 % 03/18/17 10:08 Sodium 131 mmol/L (132-148) L 03/21/17 07:17 Potassium 4.6 mmol/L (3.6-5.2) 03/21/17 07:17 Chloride 98 mmol/L (98-107) 03/21/17 07:17 Carbon Dioxide 24 mmol/L (22-30) 03/21/17 07:17 Anion Gap 14 (10-20) 03/21/17 07:17 BUN 19 mg/dL (9-20) 03/21/17 07:17 Creatinine 0.9 MG/DL (0.8-1.5) 03/21/17 07:17 Est GFR ( Amer) > 60 03/21/17 07:17 Est GFR (Non-Af Amer) > 60 03/21/17 07:17 POC Glucose (mg/dL) 299 mg/dL (65-110) H 03/21/17 11:12 Random Glucose 371 mg/dL (75-110) H 03/21/17 07:17 Lactic Acid 1.8 mmol/L (0.7-2.1) 03/21/17 07:17 Calcium 8.3 mg/dl (8.6-10.4) L 03/21/17 07:17 Phosphorus 3.7 mg/dL (2.5-4.5) 03/21/17 07:17 Magnesium 1.9 mg/dL (1.6-2.3) 03/21/17 07:17 Total Bilirubin 0.8 mg/dL (0.2-1.3) 03/21/17 07:17 AST 19 U/L (17-59) 03/21/17 07:17 ALT 69 U/L (21-72) 03/21/17 07:17 Alkaline Phosphatase 76 U/L (38-126) 03/21/17 07:17 Total Creatine Kinase 88 U/L (55-170) 03/16/17 22:26 CK-MB (Mass) 2.37 ng/mL (0.0-3.38) 03/16/17 22:26 Troponin I 0.0220 ng/mL (0.00-0.120) 03/16/17 09:19 Troponin I, Quant 0.0390 ng/mL (0.00-0.120) 03/16/17 22:26 NT-Pro-B Natriuret Pep 48.0 pg/mL (0-900) 03/16/17 09:19 Total Protein 6.4 g/dL (6.3-8.3) 03/21/17 07:17 Albumin 3.3 g/dL (3.5-5.0) L 03/21/17 07:17 Globulin 3.1 gm/dL (2.2-3.9) 03/21/17 07:17 Albumin/Globulin Ratio 1.1 (1.0-2.1) 03/21/17 07:17 Triglycerides 147 mg/dL (0-149) D 03/16/17 14:29 Cholesterol 141 mg/dL (0-199) 03/16/17 14:29 LDL Cholesterol Direct 40 mg/dL (0-129) 03/16/17 14:29 HDL Cholesterol 56 mg/dL (30-70) 03/16/17 14:29 Prostate Specific Ag 3.87 ng/mL (0.00-4.0) 03/18/17 21:28 Procalcitonin 2.09 NG/ML (0.19-0.49) H 03/20/17 10:01 Arterial Blood Potassium 4.6 mmol/L (3.6-5.2) 03/18/17 10:08 Venous Blood Potassium 4.2 mmol/L (3.6-5.2) 03/18/17 22:10 Ur L.pneumophila Ag Negative (NEGATIVE) 03/19/17 23:01 Mycoplasma pneumon IgM Negative (NEGATIVE) 03/20/17 08:33 Attending/Attestation - Attestation I have personally seen and examined this patient.: Yes I have fully participated in the care of the patient.: Yes I have reviewed all pertinent clinical information, including history, physical exam and plan: Yes Notes (Text): Medical Attending: Patient was seen and examined by me. Agree with the above note by the resident. I spoke with the patient's PMD Dr Alia Bledsoe and made her aware of DC. I also made the patient aware of follow up appt at 4PM this comming Saturday 03/24. Patient will need to take additional days of PO abx as well as his other medications As reported above, the patient has been ambulating on his own with a rolling walker - and he has been observed doing it very quickly. He does not become short of breath, he does not have CP when he ambulates thank you Emory Dobbins
--- NOTE | 2017-03-21 16:04 | PCM.HF ---
Heart Failure Core Measure - Heart Failure Ejection Fraction: 40 % or Greater (lvef 71%) EMIGDIO Inhibitor Prescribed: No Contraindication/Reason for not providing: on arb Beta-Carline Prescribed: Carvedilol Angiotensin II Receptor Carline Prescribed: Yes AnticoagulationTherapy for Atrial Fibrillation/Atrialflutter: No Contraindication/Reason for not providing: no afib Aldosterone Antagonist Prescribed: No Contraindication/Reason for not providing: lvef >40% Hydralazine Nitrate Prescribed: No Contraindication/Reason for not providing: lvef >40% Implantable Cardioverter Defibrillator Therapy: No Contraindication/Reason for not providing: lvef >40% Cardiac Resynchronization Therapy Prescribed: No Contraindication/Reason for not providing: lvef >40% - Follow up Will be discharged to: Home Follow Up Date (must be within 7 days from discharge): 03/24/17 Follow Up Time: 09:00
[2017-03-23 09:12] VITALS: O2SAT 94
== END 2017-03-21 15:40 | disposition home or self-care (01) | DRG 871 ==
LOC: C.ER 08:36 → C.9E 11:47 → C.6T 16:01
PROVIDERS: ADMIT Internal Medicine; ATTEND Internal Medicine
DX: A41.9 Sepsis, unspecified organism (principal); J18.9 Pneumonia, unspecified organism; I50.33 Acute on chronic diastolic (congestive) heart failure; I11.0 Hypertensive heart disease with heart failure; J44.0 Chronic obstructive pulmonary disease with (acute) lower respiratory infection; J44.1 Chronic obstructive pulmonary disease with (acute) exacerbation; I73.9 Peripheral vascular disease, unspecified; I25.10 Atherosclerotic heart disease of native coronary artery without angina pectoris; J45.909 Unspecified asthma, uncomplicated; F17.211 Nicotine dependence, cigarettes, in remission; R00.0 Tachycardia, unspecified; E11.9 Type 2 diabetes mellitus without complications; E78.5 Hyperlipidemia, unspecified; E78.00 Pure hypercholesterolemia, unspecified; E66.9 Obesity, unspecified; Z68.33 Body mass index [BMI] 33.0-33.9, adult; Z79.82 Long term (current) use of aspirin; Z79.4 Long term (current) use of insulin; Z80.42 Family history of malignant neoplasm of prostate; Z82.49 Family history of ischemic heart disease and other diseases of the circulatory system; K59.00 Constipation, unspecified; Z79.899 Other long term (current) drug therapy; Z91.041 Radiographic dye allergy status

== ENCOUNTER 2017-07-06 12:58 | Emergency (ER) | payer MEDICARE, MEDICAID ==
[2017-07-06 12:59] VITALS: BMI 31.6
[2017-07-06 13:13] VITALS: BP 138/72; PULSE 98; RESP 18; TEMP 97.6; O2SAT 97
== END 2017-07-06 15:43 | disposition home or self-care (01) ==
LOC: C.ER 12:58
DX: J20.9 Acute bronchitis, unspecified (principal); R25.2 Cramp and spasm
CPT/HCPCS: 71020; 93971; 96372; 99285; J1885

== ENCOUNTER 2017-09-27 09:51 | Emergency (ER) | payer MEDICARE, OTHER ==
[2017-09-27 09:55] VITALS: BMI 33.9
[2017-09-27 09:59] VITALS: O2SAT 95
--- NOTE | 2017-09-27 10:27 | C.PDOC ---
History Of Present Illness Pt is a 67 yr old male with PMHx of diabetes, cholesterol and HTN, presents to the ER with complaints of pain to the left calf for past 1 and half months. Patient states he has been to the doctor but still don't know the cause of the pain. Patient reports taking Tylenol with no relief, also when he walks the pain increases and he can't walk for a long distance due to the pain. There is no radiation of the pain; it is only in the left calf. Patient denies fever, chest pain, SOB, back pain, foot pain, weakness or numbness. PMD: DR. Bledsoe Time Seen by Provider: 09/27/17 10:13 Chief Complaint (Nursing): Lower Extremity Problem/Injury History Per: Patient, Air Hose Coupler (87489) History/Exam Limitations: no limitations, language barrier (Burmese) Onset/Duration Of Symptoms: Persistent Pain Scale Rating Of: 9 Past Medical History Reviewed: Historical Data, Nursing Documentation, Vital Signs Vital Signs: Last Vital Signs Temp 98.2 F 09/27/17 12:06 Pulse 71 09/27/17 12:06 Resp 16 09/27/17 12:06 BP 145/70 09/27/17 12:06 Pulse Ox 95 09/27/17 12:07 - Medical History PMH: Arthritis (B/L), Asthma, COPD, Diabetes, Gastritis, HTN, Hypercholesterolemia - [facility] Procedures CONTRAST ARTERIOGRAM-LEG (08/24/15) INSERT INT PENILE PROSTH (06/20/15) PLAIN RADIOGRAPHY OF AORTA, BI LE ART USING L OSM CONTRAST (07/19/16) Family History: States: CAD - Social History Hx Tobacco Use: No Hx Alcohol Use: No Hx Substance Use: No - Immunization History Hx Tetanus Toxoid Vaccination: No Hx Influenza Vaccination: No Hx Pneumococcal Vaccination: No Review Of Systems Except As Marked, All Systems Reviewed And Found Negative. Constitutional: Negative for: Fever Cardiovascular: Negative for: Chest Pain Respiratory: Negative for: Shortness of Breath Musculoskeletal: Positive for: Other ((+) Left calf pain.). Negative for: Back Pain, Foot Pain Neurological: Negative for: Weakness, Numbness Physical Exam - Physical Exam Appears: Well, Non-toxic, No Acute Distress Skin: Warm, Dry, No Rash Head: Atraumatic, Normacephalic Ear(s): Bilateral: Normal Nose: Normal Lips: Normal Appearing Lymphatic: Deferred Chest: Symmetrical, No Tenderness Cardiovascular: Rhythm Regular, No Murmur Respiratory: Normal Breath Sounds, No Rales, No Rhonchi, No Stridor, No Wheezing Extremity: Calf Tenderness (Left calf), Other ((+) Left Calf - Mild edema compared to right. No neurovascular deficits) Extremity: Bilateral: Atraumatic, Normal ROM Neurological/Psych: Oriented x3, Normal Speech Gait: Steady (with cane) ED Course And Treatment O2 Sat by Pulse Oximetry: 95 (RA) Pulse Ox Interpretation: Normal - Other Rad Dopplar Interpretation: Negative Medical Decision Making Medical Decision Making: INITIAL IMPRESSION: Calf strain vs. DVT INITIAL PLAN: Venous Duplex; Toradol IM Progress note: No DVT on printed prelim report. Pt feels better. Will d/c home. Pt should follow up w/ his PMD. Disposition - Disposition Referrals: Tram Bledsoe MD [Staff Provider] - Disposition: HOME/ ROUTINE Disposition Time: 11:46 Condition: FAIR Additional Instructions: Mr. Aden, thank you for letting us take care of you today. Return to the ER if your symptoms worsen, or if any problems. Follow up with Dr. Bledsoe next week for a re-evaluation. Take the medication listed below as prescribed. Prescriptions: Ibuprofen [Motrin] 1 tab PO TID PRN #30 tab PRN Reason: Pain, Moderate (4-7) Instructions: Muscle Strain (ED), Leg Cramps (ED) Forms: [facility] (Welsh) Print Language: FRENCH - POA Present On Arrival: None - Clinical Impression Clinical Impression: Strain of calf muscle - Scribe Statement The provider has reviewed the documentation as recorded by the Lyla Calloway Provider Attestation: All medical record entries made by the Lyla were at my direction and personally dictated by me. I have reviewed the chart and agree that the record accurately reflects my personal performance of the history, physical exam, medical decision making, and the department course for this patient. I have also personally directed, reviewed, and agree with the discharge instructions and disposition.
[2017-09-27 12:08] VITALS: BP 145/70; PULSE 71; RESP 16; TEMP 98.2
--- NOTE | 2017-09-29 14:25 | VASCLAB ---
PROCEDURE: Left Lower Extremity Venous Duplex Exam. HISTORY: Left calf pain r/o dvt PRIORS: None. TECHNIQUE: Left common femoral, femoral, popliteal and posterior tibial, peroneal and great saphenous veins were evaluated. Flow was assessed with color Doppler, compressibility, assessment of phasic flow and augmentation response. Report prepared by LOLA Rodriguez FINDINGS: LEFT: 1. Common Femoral Vein: 1.1. Compressibility - Fully compressible: Thrombus - None : Flow - Phasic: Augmentation -Normal: Reflux - None. 2. Femoral Vein: 2.1. Compressibility - Fully compressible: Thrombus - None: Flow - Phasic: Augmentation -Normal: Reflux - None. 3. Popliteal Vein: 3.1. Compressibility - Fully compressible: Thrombus - None: Flow - Phasic: Augmentation -Normal: Reflux - None. 4. Posterior Tibial Vein: 4.1. Compressibility - Fully compressible: Thrombus - None: Flow - Phasic: Augmentation -Normal: Reflux - None. 5. Peroneal Vein: 5.1. Compressibility - Fully compressible: Thrombus - None: Flow - Phasic: Augmentation -Normal: Reflux - None. 6. Great Saphenous Vein: 6.1. Compressibility - Fully compressible: Thrombus - None: Flow - Phasic: Augmentation - Normal: Reflux - None. OTHER FINDINGS: IMPRESSION: No evidence of deep or superficial vein thrombosis of the left lower extremity with excellent venous flow. Normal valve function noted of the left side. Normal venous flow noted in the right common femoral vein.
== END 2017-09-27 12:06 | disposition home or self-care (01) ==
LOC: C.ER 09:51
DX: S86.912A Strain of unspecified muscle(s) and tendon(s) at lower leg level, left leg, initial encounter (principal); X58.XXXA Exposure to other specified factors, initial encounter; E11.9 Type 2 diabetes mellitus without complications; E78.00 Pure hypercholesterolemia, unspecified; I10 Essential (primary) hypertension; J44.9 Chronic obstructive pulmonary disease, unspecified

== ENCOUNTER 2018-02-10 11:17 | Emergency (ER) | payer MEDICARE, OTHER ==
[2018-02-10 11:17] VITALS: BMI 33.9
[2018-02-10 12:19] LABS: BASO # 0.2 K/uL (0.0-0.2); BASO % 1.3 % (0.0-2.0); EOS # 3.9 K/uL (0.0-0.7); HEMOGLOBIN 13.9 g/dL (12.0-18.0); LYMPH # 2.2 K/uL (1.0-4.3); LYMPH % 18.4 % (20.0-40.0); MEAN CELL VOLUME 73.9 fL (80.0-94.0); MEAN CORPUSCULAR HEMOGLOBIN 23.7 pg (27.0-31.0); MEAN CORPUSCULAR HGB CONC 32.1 g/dL (33.0-37.0); MONO % 8.5 % (0.0-10.0); NEUT # 4.8 K/uL (1.8-7.0); NEUT % 39.8 % (50.0-75.0); PLATELET COUNT 234 K/uL (130-400); RBC 5.86 Mil/uL (4.40-5.90); RED CELL DISTRIBUTION WIDTH 17.2 % (11.5-14.5); WHITE BLOOD COUNT 12.1 K/uL (4.8-10.8)
--- NOTE | 2018-02-10 12:31 | C.PDOC ---
History Of Present Illness <Chago Bosch - Last Filed: 02/10/18 16:10> <ChaunceyKumar M - Last Filed: 02/10/18 16:43> Patient is a 67 year old male with past medical history DM, HTN, HLD, PAD, CAD, CHF, COPD, asthma, who presents to the ED with complaints of generalized body aches for 2 days, intermittent chills and shortness of breath. Patient admits to chest tightness/SOB that is secondary to his asthma, left calf tenderness and right knee pain. (Francisco Boschana Sarai) History Per: Patient History/Exam Limitations: no limitations Onset/Duration Of Symptoms: Days Current Symptoms Are (Timing): Gone (SOB gone after Duoneb treatment) Severity: Mild Pain Scale Rating Of: 1 Context: Generalized body aches Location: Right knee pain and left calf tenderness Additional History Per: Patient <Chago Bosch - Last Filed: 02/10/18 16:10> <José Grossman M - Last Filed: 02/10/18 16:43> Time Seen by Provider: 02/10/18 11:31 Chief Complaint (Nursing): Shortness Of Breath Past Medical History - Medical History PMH: Arthritis (B/L), Asthma, COPD, Diabetes, Gastritis, HTN, Hypercholesterolemia Denies: Chronic Kidney Disease Family History: States: Unknown Family Hx, CAD - Social History Hx Tobacco Use: No Hx Alcohol Use: No Hx Substance Use: No - Immunization History Hx Tetanus Toxoid Vaccination: No Hx Influenza Vaccination: No Hx Pneumococcal Vaccination: No <Chago Bosch - Last Filed: 02/10/18 16:10> Vital Signs: Last Vital Signs Temp 98.2 F 02/10/18 16:16 Pulse 94 H 02/10/18 16:16 Resp 20 02/10/18 16:16 BP 129/67 02/10/18 16:16 Pulse Ox 92 L 02/10/18 16:41 - [facility] Procedures CONTRAST ARTERIOGRAM-LEG (08/24/15) INSERT INT PENILE PROSTH (06/20/15) PLAIN RADIOGRAPHY OF AORTA, BI LE ART USING L OSM CONTRAST (07/19/16) Review Of Systems Constitutional: Positive for: Chills. Negative for: Fever, Weakness Cardiovascular: Positive for: Chest Pain (associated with SOB, secondary to pt' s hx of asthma ). Negative for: Palpitations, Paroxysmal Noc. Dyspnea, Edema Respiratory: Positive for: Shortness of Breath, SOB with Excertion. Negative for: Cough Gastrointestinal: Positive for: Other (Abdominal discomfort due to chronic constipation secondary to chronic pain medication use ). Negative for: Nausea, Vomiting Neurological: Negative for: Confusion <HiroHannahnadeem E - Last Filed: 02/10/18 16:10> Physical Exam - Physical Exam Appears: No Acute Distress Skin: Normal Color Head: Atraumatic, Normacephalic Eye(s): bilateral: Normal Inspection, EOMI Oral Mucosa: Moist Lips: Normal Appearing Cardiovascular: Rhythm Regular Gastrointestinal/Abdominal: Bowel Sounds, Soft, Other (Mild discomfort secondary to chronic constipation ) Extremity: Calf Tenderness (Left calf tenderness and right knee pain ) Neurological/Psych: Oriented x3, Normal Speech <HiroHannahnadeem E - Last Filed: 02/10/18 16:10> ED Course And Treatment - Laboratory Results Result Diagrams: 02/10/18 12:14 02/10/18 12:14 ECG Rhythm: Sinus Tachycardia, R BBB Interpretation Of ECG: Possible left atrial enlargement, Right bundle branch block Rate From EC O2 Sat by Pulse Oximetry: 92 - Radiology CXR: Read By Radiologist CXR Interpretation: Yes: No Acute Disease Progress Note: Mildy elevated D-dimer and sinus tachycardia: f/U Angio chest CT Reevaluation Time: 16:00 (Improved SOB after duoneb treatment ) Reassessment Condition: Improved <HiroHannahnadeem E - Last Filed: 02/10/18 16:10> - Laboratory Results Result Diagrams: 02/10/18 12:14 02/10/18 12:14 <José Grossman M - Last Filed: 02/10/18 16:43> Medical Decision Making <Chago Bosch E - Last Filed: 02/10/18 16:10> <José Grossman M - Last Filed: 02/10/18 16:43> Medical Decision Making: Elevated D-dimer: * Chest CT (02/10/18): No evidence of pulmonary embolism. Small hiatal hernia. Nonspecific heterogeneous ground-glass opacity in both lower lobes. Left Calf Tenderness: * Bilateral LE Venous doppler (02/10/18): Negative for DVT Right Knee pain: * Right knee X-ray: Arthrosis, Atherosclerotic vascular calcifications and graft , No fracture or lytic lesion (Chago Bosch) Disposition Discussed With : José Grossman - Disposition Disposition Time: 16:35 <Chago Bosch - Last Filed: 02/10/18 16:10> <José Grossman - Last Filed: 02/10/18 16:43> - Disposition Referrals: Tram Bledsoe MD [Staff Provider] - Disposition: HOME/ ROUTINE Condition: GOOD Additional Instructions: Please follow up with your primary care physician, Dr. Bledsoe in 2 days Please continue your home medication as prescribed by your primary care physician, Dr. Bledsoe Please address blood sugar episodes with your primary care physician, Dr. Bledsoe in order to have medicine reconciliation Please take tramadol 50mg PO TID for severe Pain as needed Please return to the ED if symptoms worsens or progress Please take care Prescriptions: traMADol [Ultram] 50 mg PO TID PRN #15 tab PRN Reason: Pain, Severe (8-10) Instructions: Asthma in Adults, Joint Pain Forms: [facility] (Bermudian), General Discharge Instructions - Clinical Impression Clinical Impression: Arthralgia, Asthma
[2018-02-10 12:39] LABS: ALB/GLOB RATIO 1.2 (1.0-2.1); ALBUMIN 4.2 g/dL (3.5-5.0); ALT/SGPT 34 U/L (21-72); AST/SGOT 25 U/L (17-59); BLOOD UREA NITROGEN 25 mg/dL (9-20); CALCIUM 9.1 mg/dl (8.6-10.4); GFR AFRICAN-AMERICAN > 60; GFR NON-AFRICAN AMERICAN > 60; LIPASE 130 U/L (23-300)
[2018-02-10 12:45] LABS: B-TYPE NATRIURETIC PEPTIDE 24.5 pg/mL (0-900)
[2018-02-10 13:06] LABS: BANDS 1 % (0-2); EOSINOPHIL 29 % (0-4); LYMPHOCYTE 23 % (20-40); MONOCYTE 4 % (0-10); NEUTROPHIL 43 % (50-75); TOTAL CELLS COUNTED 100
[2018-02-10 13:07] LABS: ANISOCYTOSIS SLIGHT; HYPOCHROMIC SLIGHT; MICROCYTOSIS SLIGHT; PLATELET ESTIMATE NORMAL (NORMAL); POLYCHROMIC SLIGHT
--- NOTE | 2018-02-10 13:41 | VASCLAB ---
PROCEDURE: Lower Extremity Venous Duplex Exam. HISTORY: Bilateral calf tenderness PRIORS: None. TECHNIQUE: Bilateral common femoral, femoral, popliteal and posterior tibial, peroneal and great saphenous veins were evaluated. Flow was assessed with color Doppler, compressibility, assessment of phasic flow and augmentation response. Report prepared by Sebastian Cheng, BLAKE, RVT FINDINGS: RIGHT: 1. Common Femoral Vein: 1.1. Compressibility - Fully compressible: Thrombus - None : Flow - Phasic: Augmentation -Normal: Reflux - None. 2. Femoral Vein: 2.1. Compressibility - Fully compressible: Thrombus - None : Flow - Phasic: Augmentation -Normal: Reflux - None. 3. Popliteal Vein: 3.1. Compressibility - Fully compressible: Thrombus - None : Flow - Phasic: Augmentation -Normal: Reflux - None. 4. Posterior Tibial Vein: 4.1. Compressibility - Fully compressible: Thrombus - None: Flow - Phasic: Augmentation -Normal: Reflux - None. 5. Peroneal Vein: 5.1. Compressibility - Fully compressible: Thrombus - None: Flow - Phasic: Augmentation -Normal: Reflux - None. 6. Great Saphenous Vein: 6.1. Compressibility - Fully compressible: Thrombus - None: Flow - Phasic: Augmentation - Normal: Reflux - None. LEFT: 1. Common Femoral Vein: 1.1. Compressibility - Fully compressible: Thrombus - None: Flow - Phasic: Augmentation -Normal: Reflux - None. 2. Femoral Vein: 2.1. Compressibility - Fully compressible: Thrombus - None: Flow - Phasic: Augmentation -Normal: Reflux - None. 3. Popliteal Vein: 3.1. Compressibility - Fully compressible: Thrombus - None : Flow - Phasic: Augmentation -Normal: Reflux - None. 4. Posterior Tibial Vein: 4.1. Compressibility - Fully compressible: Thrombus - None: Flow - Phasic: Augmentation -Normal: Reflux - None. 5. Peroneal Vein: 5.1. Compressibility - Fully compressible: Thrombus - None: Flow - Phasic: Augmentation -Normal: Reflux - None. 6. Great Saphenous Vein: 6.1. Compressibility - Fully compressible: Thrombus - None: Flow - Phasic: Augmentation - Normal: Reflux - None. OTHER FINDINGS: Right: None significant. Left: None significant. IMPRESSION: Right: No evidence of deep or superficial vein thrombosis of the right lower extremity. Normal valve function noted of the right side. Left: No evidence of deep or superficial vein thrombosis of the left lower extremity. Normal valve function noted of the left side.
--- NOTE | 2018-02-10 13:42 | RAD ---
HISTORY: shortness of breath COMPARISON: 07/06/2017 FINDINGS: LUNGS: Chronic interstitial lung disease. PLEURA: No significant pleural effusion identified, no pneumothorax apparent. CARDIOVASCULAR: Cardiomegaly. No evidence of acute, significant cardiovascular disease. OSSEOUS STRUCTURES: Stable finding following a right 5th rib resection. VISUALIZED UPPER ABDOMEN: Normal. OTHER FINDINGS: None. IMPRESSION: No active disease. No significant interval change compared to the prior examination(s).
[2018-02-10] MEDS ORDERED: Albuterol-Ipratrop 3 mg / 0.5 (3 ml) UD INH STA (14:17)
[2018-02-10 14:24] VITALS: RESP 20; TEMP 98.2
[2018-02-10] MEDS ORDERED: Albuterol-Ipratrop 3 mg / 0.5 (3 ml) UD ONE (14:37)
[2018-02-10] MEDS ORDERED: Iodixanol 320 MG/ML 100 ML BOTTLE IV ONE (14:53)
--- NOTE | 2018-02-10 15:50 | CT ---
PROCEDURE: CT Chest with contrast (Pulmonary Angiogram) HISTORY: Mild elevation of D-dimer, SOB and tachycardia COMPARISON: None available. TECHNIQUE: Axial computed tomography images were obtained of the chest in the pulmonary arterial phase of enhancement. Coronal and sagittal reformatted images were created and reviewed. Intravenous contrast dose: 100 mL Visipaque 320 Radiation dose: Total exam DLP = 588.96 mGy-cm. This CT exam was performed using one or more of the following dose reduction techniques: Automated exposure control, adjustment of the mA and/or kV according to patient size, and/or use of iterative reconstruction technique. FINDINGS: PULMONARY ARTERIES: Unremarkable. No pulmonary embolism. AORTA: No acute findings. No thoracic aortic aneurysm. LUNGS: Previously noted multi lobar right-sided pulmonary infiltrate has resolved. There is nonspecific heterogeneous ground-glass opacity in both lower lobes. No consolidation. PLEURAL SPACES: Unremarkable. No effusion or pneuomothorax. HEART: Unremarkable. No cardiomegaly. No significant pericardial effusion. LYMPH NODES: No lymphadenopathy. BONES, CHEST WALL: Unremarkable. No fracture or destructive lesion OTHER FINDINGS: Small hiatal hernia. IMPRESSION: No evidence of pulmonary embolism. Small hiatal hernia. Nonspecific heterogeneous ground-glass opacity in both lower lobes.
--- NOTE | 2018-02-10 16:02 | RAD ---
PROCEDURE: Right Knee Radiographs. HISTORY: knee pian COMPARISON: 02/28/2016 FINDINGS: BONES: No fracture or lytic lesion. JOINTS: Osteoarthrosis medial lateral compartments fairly similar. Lateral tibial spine spurring. Atherosclerotic vascular calcifications project over the intercondylar fossa. A proximal vascular graft near the superior edge of this image is noted JOINT EFFUSION: None. OTHER FINDINGS: None. IMPRESSION: Arthrosis Atherosclerotic vascular calcifications and graft No fracture or lytic lesion
[2018-02-10 16:17] VITALS: BP 129/67; PULSE 94
[2018-02-10 16:22] VITALS: O2SAT 92
--- NOTE | 2018-02-11 12:17 | CARD ---
APPROVED REPORT EKG Measurement Heart [id number] <Conclusion> Sinus tachycardia Possible Left atrial enlargement Right bundle branch block Abnormal ECG
== END 2018-02-10 16:48 | disposition home or self-care (01) ==
LOC: C.ER 11:17
DX: M25.561 Pain in right knee (principal); J45.909 Unspecified asthma, uncomplicated; E11.9 Type 2 diabetes mellitus without complications; E78.00 Pure hypercholesterolemia, unspecified; I50.9 Heart failure, unspecified; I10 Essential (primary) hypertension; I25.10 Atherosclerotic heart disease of native coronary artery without angina pectoris
CPT/HCPCS: 71045; 71275; 73562; 80053; 82948; 83690; 83880; 84484; 85025; 85378; 87804; 93005; 93970; 94150; 94640; 99285; Q9967

== ENCOUNTER 2018-09-11 14:47 | Emergency (ER) | payer MEDICARE, OTHER ==
[2018-09-11 14:47] VITALS: BMI 33.9
[2018-09-11 15:02] VITALS: RESP 18; TEMP 97.8
[2018-09-11 16:30] VITALS: BP 153/78; PULSE 62; O2SAT 97
--- NOTE | 2018-09-11 16:33 | C.PDOC ---
History Of Present Illness 68-year-old male, presents to the emergency department with complaints of two- month Hx of left calf pain, which worsens when he walks. Patient denies any shortness of breath, chest pain, recent travel or any other associated symptoms. no other complaints at this time. Time Seen by Provider: 09/11/18 15:06 Chief Complaint (Nursing): Lower Extremity Problem/Injury History Per: Patient History/Exam Limitations: no limitations Onset/Duration Of Symptoms: Persistent Current Symptoms Are (Timing): Still Present Severity: Moderate Recent travel outside of the [place]: No Past Medical History Reviewed: Historical Data, Nursing Documentation, Vital Signs Vital Signs: Last Vital Signs Temp 97.8 F 09/11/18 14:59 Pulse 62 09/11/18 16:29 Resp 18 09/11/18 16:29 BP 153/78 H 09/11/18 16:29 Pulse Ox 97 09/11/18 16:29 - Medical History PMH: Arthritis (B/L), Asthma, COPD, Diabetes, Gastritis, HTN, Hypercholesterolemia - [facility] Procedures CONTRAST ARTERIOGRAM-LEG (08/24/15) INSERT INT PENILE PROSTH (06/20/15) PLAIN RADIOGRAPHY OF AORTA, BI LE ART USING L OSM CONTRAST (07/19/16) Family History: States: CAD - Social History Hx Tobacco Use: No Hx Alcohol Use: No Hx Substance Use: No - Immunization History Hx Tetanus Toxoid Vaccination: No Hx Influenza Vaccination: No Hx Pneumococcal Vaccination: No Review Of Systems Constitutional: Negative for: Fever, Chills Eyes: Negative for: Pain, Vision Change ENT: Negative for: Ear Pain Cardiovascular: Positive for: Edema. Negative for: Chest Pain, Palpitations, Light Headedness Respiratory: Negative for: Shortness of Breath Gastrointestinal: Negative for: Nausea, Vomiting Genitourinary: Negative for: Dysuria, Hematuria Musculoskeletal: Positive for: Leg Pain. Negative for: Neck Pain Skin: Negative for: Rash, Lesions Neurological: Negative for: Weakness, Numbness Physical Exam - Physical Exam Appears: Non-toxic, No Acute Distress Skin: Warm, Dry, No Rash Head: Atraumatic, Normacephalic Eye(s): bilateral: Normal Inspection Nose: Normal Oral Mucosa: Moist Lips: Normal Appearing Neck: Normal ROM, Supple Chest: Symmetrical, No Tenderness Cardiovascular: Rhythm Regular, No Friction Rub, No Murmur Respiratory: Normal Breath Sounds, No Accessory Muscle Use, No Stridor, No Wheezing Gastrointestinal/Abdominal: Soft, No Tenderness Back: Normal Inspection, No CVA Tenderness Extremity: Normal ROM, Pedal Edema (+1 pitting), Calf Tenderness (minimal, left ), No Deformity Pulses: Left Dorsalis Pedis: Normal, Right Dorsalis Pedis: Normal Neurological/Psych: Oriented x3, Normal Speech, Normal Motor Gait: Steady ED Course And Treatment O2 Sat by Pulse Oximetry: 97 (on RA) Pulse Ox Interpretation: Normal (RA) Medical Decision Making Medical Decision Making: Venous Doppler is negative for DVT. On re-exam, the patient is ambulatory in the ED with steady gait. Disposition - Disposition Referrals: Tram Bledsoe MD [Staff Provider] - Disposition: HOME/ ROUTINE Disposition Time: 16:30 Condition: STABLE Additional Instructions: Follow up with the medical doctor within 1-2 days. return if worsened. Prescriptions: Naproxen 375 mg PO BID #20 tablet Instructions: Muscle Spasms (DC) Forms: [employer] (Paraguayan) Print Language: SWEDISH - Clinical Impression Clinical Impression: Muscle spasm - Scribe Statement The provider has reviewed the documentation as recorded by the Scribe (Neela Suarez) All medical record entries made by the Scribe were at my direction and personally dictated by me. I have reviewed the chart and agree that the record accurately reflects my personal performance of the history, physical exam, medical decision making, and the department course for this patient. I have also personally directed, reviewed, and agree with the discharge instructions and d isposition.
--- NOTE | 2018-09-14 14:29 | VASCLAB ---
Date of service: 09/11/2018 PROCEDURE: Left Lower Extremity Venous Duplex Exam. HISTORY: L calf pain, swelling PRIORS: None. TECHNIQUE: Left common femoral, femoral, popliteal and posterior tibial, peroneal and great saphenous veins were evaluated. Flow was assessed with color Doppler, compressibility, assessment of phasic flow and augmentation response. Report prepared by BLAKE Arreguin, RVT FINDINGS: LEFT: 1. Common Femoral Vein: 1.1. Compressibility - Fully compressible: Thrombus - None : Flow - Phasic: Augmentation -Normal: Reflux - None. 2. Femoral Vein: 2.1. Compressibility - Fully compressible: Thrombus - None: Flow - Phasic: Augmentation -Normal: Reflux - None. 3. Popliteal Vein: 3.1. Compressibility - Fully compressible: Thrombus - None: Flow - Phasic: Augmentation -Normal: Reflux - None. 4. Posterior Tibial Vein: 4.1. Compressibility - Fully compressible: Thrombus - None: Flow - Phasic: Augmentation -Normal: Reflux - None. 5. Peroneal Vein: 5.1. Compressibility - Fully compressible: Thrombus - None: Flow - Phasic: Augmentation -Normal: Reflux - None. 6. Great Saphenous Vein: 6.1. Compressibility - Fully compressible: Thrombus - None: Flow - Phasic: Augmentation - Normal: Reflux - None. OTHER FINDINGS: IMPRESSION: No evidence of deep or superficial vein thrombosis of the left lower extremity with excellent venous flow. Normal valve function noted of the left side. Normal venous flow noted in the right common femoral vein.
== END 2018-09-11 16:42 | disposition home or self-care (01) ==
LOC: C.ER 14:47
DX: M62.838 Other muscle spasm (principal); E78.00 Pure hypercholesterolemia, unspecified; E11.9 Type 2 diabetes mellitus without complications; I10 Essential (primary) hypertension; J44.9 Chronic obstructive pulmonary disease, unspecified
CPT/HCPCS: 93971; 96372; 99284; J1885

== ENCOUNTER 2018-10-27 09:38 | Emergency (ER) | payer MEDICARE, OTHER ==
[2018-10-27 09:38] VITALS: BMI 33.9
[2018-10-27 09:55] VITALS: BP 177/74; PULSE 95; RESP 18; TEMP 98.7; O2SAT 96
--- NOTE | 2018-10-27 11:18 | C.PDOC ---
History Of Present Illness 68 year old male presents to the ED for evaluation of left calf pain that began in Jan 2018. Patient was sent for an MRI by PMD Dr. Mary, which showed mild inflammation of the left calf muscle area. Patient admits to occasionally taking Motrin and icing the anterior tibia with no improvement. Denies chest pain, numbness, tingling, trauma, falls, fever, and any other associated symptoms. Time Seen by Provider: 10/27/18 11:15 Chief Complaint (Nursing): Back Pain History Per: Patient History/Exam Limitations: no limitations Onset/Duration Of Symptoms: Other (months.) Current Symptoms Are (Timing): Still Present Past Medical History Reviewed: Historical Data, Nursing Documentation, Vital Signs Vital Signs: Last Vital Signs Temp 98.7 F 10/27/18 09:47 Pulse 95 H 10/27/18 09:47 Resp 18 10/27/18 09:47 BP 177/74 H 10/27/18 09:47 Pulse Ox 96 10/27/18 09:47 - Medical History PMH: Arthritis (B/L), Asthma, COPD, Diabetes, Gastritis, HTN, Hypercholesterolemia Denies: Chronic Kidney Disease - [facility] Procedures CONTRAST ARTERIOGRAM-LEG (08/24/15) INSERT INT PENILE PROSTH (06/20/15) PLAIN RADIOGRAPHY OF AORTA, BI LE ART USING L OSM CONTRAST (07/19/16) Family History: States: Unknown Family Hx, CAD - Social History Hx Tobacco Use: No Hx Alcohol Use: No Hx Substance Use: No - Immunization History Hx Tetanus Toxoid Vaccination: No Hx Influenza Vaccination: No Hx Pneumococcal Vaccination: No Review Of Systems Except As Marked, All Systems Reviewed And Found Negative. Constitutional: Negative for: Fever, Other (trauma. falls.) Cardiovascular: Negative for: Chest Pain Musculoskeletal: Positive for: Other (of left calf pain.) Neurological: Negative for: Weakness, Numbness, Incoordination Physical Exam - Physical Exam Appears: Well, Non-toxic, No Acute Distress Skin: Normal Color, Warm, Dry Head: Atraumatic, Normacephalic Eye(s): bilateral: PERRL Neck: Normal ROM, Supple Respiratory: Other (no acute respiratory distress.) Extremity: Normal ROM (of the left lower extremity.), No Tenderness, Capillary Refill (less than 2 seconds.), No Deformity, No Swelling, No Other (normal left calf, is equal to the right calf.) Pulses: Left Dorsalis Pedis: Normal, Right Dorsalis Pedis: Normal Neurological/Psych: Oriented x3, Normal Speech, Normal Cognition, Normal Motor, Normal Sensation, Normal Reflexes ED Course And Treatment O2 Sat by Pulse Oximetry: 96 (RA) Pulse Ox Interpretation: Normal Medical Decision Making Medical Decision Making: minor calf muscle/gastrocnemius strain dx by MRI as opt 09/23/28 pt has been placing ice on ANTERIOR surface of tib/fib without improvement examined and no sig tenderness/swelling/edema supine in ED with ice pack educated x 15 mins NO heel boot for this elderly pt for falls risk Plan: -Motrin. Ice. Progress/Update: Patient was laid on his back to ice the back of the calf muscle. Patients pain improved with ice. Patient stable for discharge home. Prescribed Advil and Naproxen. Disposition Doctor Will See Patient In The: Office Counseled Patient/Family Regarding: Studies Performed, Diagnosis - Disposition Referrals: Leanna Mary [Non-Staff] - Disposition: HOME/ ROUTINE Disposition Time: 11:29 Condition: GOOD Additional Instructions: bolsa de hielo 1/2 hora por hora DETRAS del musculo del pierna nada caliente ibuprofeno/advil 400 mg cada 6 horas pinky necessario Sigue con Dr. Mary pinky necessario. Prescriptions: Ibuprofen [Advil] 400 mg PO Q6H PRN #200 tablet PRN Reason: pain Instructions: Lower Extremity Muscle Strain Forms: [facility] [employer] [facility] (Maltese) Print Language: EQUATORIAL GUINEAN - Clinical Impression Clinical Impression: Strain of calf muscle - Scribe Statement The provider has reviewed the documentation as recorded by the Scribe (Argenis Garcia) Provider Attestation: All medical record entries made by the Scribe were at my direction and personally dictated by me. I have reviewed the chart and agree that the record accurately reflects my personal performance of the history, physical exam, medical decision making, and the department course for this patient. I have also personally directed, reviewed, and agree with the discharge instructions and disposition.
== END 2018-10-27 11:48 | disposition home or self-care (01) ==
LOC: C.ER 09:38
DX: S86.912A Strain of unspecified muscle(s) and tendon(s) at lower leg level, left leg, initial encounter (principal); X58.XXXA Exposure to other specified factors, initial encounter

== ENCOUNTER 2018-12-28 10:56 | Emergency (ER) | payer MEDICARE, OTHER ==
[2018-12-28 10:57] VITALS: BMI 33.9
[2018-12-28 11:31] VITALS: BP 140/75; PULSE 84; RESP 20; TEMP 97.3; O2SAT 96
--- NOTE | 2018-12-28 12:03 | C.PDOC ---
History Of Present Illness 68 year old male presents to the ED for evaluation of chronic whole body pain. Patient reports he occasionally takes Tylenol with relief. Patient has had multiple prior evaluations for chronic pain issues. He denies fever, chills. Time Seen by Provider: 12/28/18 11:57 Chief Complaint (Nursing): Flu-like Symptoms History Per: Patient History/Exam Limitations: no limitations Onset/Duration Of Symptoms: Days Current Symptoms Are (Timing): Still Present Location Of Pain: Diffuse Myalgias Associated Symptoms: denies: Fever, Chills Additional History Per: Patient Past Medical History Reviewed: Historical Data, Nursing Documentation, Vital Signs Vital Signs: Last Vital Signs Temp 97.3 F L 12/28/18 11:29 Pulse 84 12/28/18 11:29 Resp 20 12/28/18 11:29 BP 140/75 12/28/18 11:29 Pulse Ox 96 12/28/18 11:29 - Medical History PMH: Arthritis (B/L), Asthma, COPD, Diabetes, Gastritis, HTN, Hypercholesterolemia Denies: Chronic Kidney Disease Surgical History: No Surg Hx - [facility] Procedures CONTRAST ARTERIOGRAM-LEG (08/24/15) INSERT INT PENILE PROSTH (06/20/15) PLAIN RADIOGRAPHY OF AORTA, BI LE ART USING L OSM CONTRAST (07/19/16) Family History: States: CAD - Social History Hx Tobacco Use: No Hx Alcohol Use: No Hx Substance Use: No - Immunization History Hx Tetanus Toxoid Vaccination: No Hx Influenza Vaccination: Yes Hx Pneumococcal Vaccination: Yes Review Of Systems Constitutional: Negative for: Fever, Chills Musculoskeletal: Positive for: Other (generalized body pain, chronic ) Physical Exam - Physical Exam Appears: Non-toxic, No Acute Distress, Other (obese male ) Skin: Normal Color, Warm, Dry, No Rash (chest) Head: Atraumatic, Normacephalic Eye(s): bilateral: Normal Inspection Oral Mucosa: Moist Neck: Supple Chest: Symmetrical, No Deformity, No Tenderness Cardiovascular: Rhythm Regular, No Murmur Respiratory: Normal Breath Sounds, No Rales, No Rhonchi, No Wheezing Gastrointestinal/Abdominal: Soft, No Tenderness, No Guarding, No Rebound, Other (obese, round ) Extremity: Normal ROM, Capillary Refill (less than 2 seconds ), No Other (clubbing, cyanosis or edema to lower extremities ) Neurological/Psych: Normal Speech, Normal Cognition, Other (argumentative, confrontational ) ED Course And Treatment O2 Sat by Pulse Oximetry: 96 Progress Note: Motrin PO given. Medical Decision Making Medical Decision Making: body aches x 2 weeks poor relief with Tylenol Advil advised and given no rash noted below eyes/chest ok for f/u w Dr. Saucedo Disposition Doctor Will See Patient In The: Office Counseled Patient/Family Regarding: Studies Performed, Diagnosis - Disposition Referrals: Tram Bledsoe MD [Staff Provider] - Disposition: HOME/ ROUTINE Disposition Time: 12:03 Condition: GOOD Additional Instructions: ibuprofeno/Advil/Motrin 400-600 mg cada 6 horas pinky necessario Sigue con Dra. Saucedo Instructions: Chronic Pain (DC), Viral Syndrome (DC) Forms: [employer] (C[place] Rican) Print Language: BENGALI - Clinical Impression Clinical Impression: Influenza-like illness, Chronic pain - Scribe Statement The provider has reviewed the documentation as recorded by the Scribe (Jennifer Payan) Provider Attestation: All medical record entries made by the Scribe were at my direction and personally dictated by me. I have reviewed the chart and agree that the record accurately reflects my personal performance of the history, physical exam, medic al decision making, and the department course for this patient. I have also personally directed, reviewed, and agree with the discharge instructions and disposition.
== END 2018-12-28 12:07 | disposition home or self-care (01) ==
LOC: C.ER 10:56
DX: G89.29 Other chronic pain (principal); J11.1 Influenza due to unidentified influenza virus with other respiratory manifestations

== ENCOUNTER 2019-02-04 08:05 | Outpatient (CLI) | payer MEDICARE, OTHER | END 2019-02-04 08:06 | disposition home or self-care (01) | LOC: C.VASC 08:05 | DX: I73.9 Peripheral vascular disease, unspecified (principal); I82.409 Acute embolism and thrombosis of unspecified deep veins of unspecified lower extremity ==

== ENCOUNTER 2019-03-05 10:21 | Emergency (ER) | payer MEDICARE, OTHER ==
[2019-03-05 10:21] VITALS: BMI 33.9
[2019-03-05 10:28] VITALS: BP 144/83; PULSE 93; RESP 17; TEMP 97.8; O2SAT 95
--- NOTE | 2019-03-05 10:43 | C.PDOC ---
History Of Present Illness 68 y/o male pt with hx of Arthritis (B/L), Asthma, COPD, Diabetes, Gastritis, HTN and Hypercholesterolemia presents to the ER c/o itchy rash to the abdomen, back and b/l forearms for x4 days. Pt denies starting any new lotion, perfume, diet or new contact of any sort. Pt also denies pain, recent illness, fever, chills, nausea, vomiting, SOB, chest pain, sore throat or any urinary sx. Time Seen by Provider: 03/05/19 10:40 Chief Complaint (Nursing): Abnormal Skin Integrity History Per: Patient History/Exam Limitations: no limitations Onset/Duration Of Symptoms: Days (x4) Current Symptoms Are (Timing): Still Present Location Of Injury: Right: Forearm, Left: Forearm, Anterior: Abdomen, Posterior: Back Quality Of Symptoms: Itching. denies: Painful Past Medical History Reviewed: Historical Data, Nursing Documentation, Vital Signs Vital Signs: Last Vital Signs Temp 97.8 F 03/05/19 10:25 Pulse 93 H 03/05/19 10:25 Resp 17 03/05/19 10:25 BP 144/83 03/05/19 10:25 Pulse Ox 95 03/05/19 10:25 - Medical History PMH: Arthritis (B/L), Asthma, COPD, Diabetes, Gastritis, HTN, Hypercholesterolemia - [facility] Procedures CONTRAST ARTERIOGRAM-LEG (08/24/15) INSERT INT PENILE PROSTH (06/20/15) PLAIN RADIOGRAPHY OF AORTA, BI LE ART USING L OSM CONTRAST (07/19/16) Family History: States: Unknown Family Hx, CAD - Social History Hx Tobacco Use: No Hx Alcohol Use: No Hx Substance Use: No - Immunization History Hx Tetanus Toxoid Vaccination: No (UNSURE) Hx Influenza Vaccination: No (UNSURE) Hx Pneumococcal Vaccination: No (UNSURE) Review Of Systems Constitutional: Positive for: Other (no new lotion, diet, or any contact of the sort. ). Negative for: Fever, Chills ENT: Negative for: Throat Pain Cardiovascular: Negative for: Chest Pain Respiratory: Negative for: Shortness of Breath Gastrointestinal: Negative for: Nausea, Vomiting Genitourinary: Negative for: Dysuria, Frequency, Incontinence, Hematuria Skin: Positive for: Rash (back, abdomen, b/l forearms ). Negative for: Lesions, Other (pain on rash areas ) Physical Exam - Physical Exam Appears: Non-toxic, No Acute Distress Skin: Warm, Dry, Rash (macular, papular rash noted on abdomen, back and forearm; erythematous and palpatations on palpations) Head: Atraumatic, Normacephalic Eye(s): bilateral: Normal Inspection, PERRL, EOMI Oral Mucosa: Moist Tongue: Normal Appearing, No Swelling Lips: Normal Appearing, No Swelling Throat: Normal, No Erythema, No Exudate Neck: Normal ROM, Supple Cardiovascular: Rhythm Regular Respiratory: Normal Breath Sounds, No Accessory Muscle Use Gastrointestinal/Abdominal: Soft, No Tenderness Extremity: Normal ROM (x4) Neurological/Psych: Oriented x3, Normal Speech, Normal Cognition, Normal Motor, Normal Sensation ED Course And Treatment O2 Sat by Pulse Oximetry: 95 (RA) Pulse Ox Interpretation: Normal Medical Decision Making Medical Decision Making: plans: -- benadryl -- decadron -- pepcid Patient verbalizes understanding and is in agreement with plan. Patient is stable for discharge. Disposition Counseled Patient/Family Regarding: Diagnosis, Need For Followup, Rx Given - Disposition Referrals: [facility] [Outside] Adriel Stone MD [Staff Provider] - Nick Francisco MD [Staff Provider] - Star Darnell MD [Staff Provider] - Disposition: HOME/ ROUTINE Disposition Time: 11:06 Condition: STABLE Additional Instructions: Apply topical cream to arms, abdomen , and back twice a day continue Benadryl and Pepcid as needed followup with Derm in 1-2 days Return to ED if symptoms worsen Prescriptions: Clotrimazole/Betamethasone [Lotrisone] 1 appl TOP BID #1 tube DiphenhydrAMINE [Benadryl] 25 mg PO BID #14 cap Famotidine [Pepcid] 20 mg PO DAILY #14 tab Instructions: Contact Dermatitis (DC), Skin Rash (DC) Forms: [employer] (Upper Sorbian) Print Language: KYRGYZ - Clinical Impression Clinical Impression: Allergic contact dermatitis, Skin rash - PA / [employer] / Resident Statement / has reviewed & agrees with the documentation as recorded. - Scribe Statement The provider has reviewed the documentation as recorded by the Lyla Bravo Do All medical record entries made by the Scribe were at my direction and personally dictated by me. I have reviewed the chart and agree that the record accurately reflects my personal performance of the history, physical exam, medical decision making, and the department course for this patient. I have also personally directed, reviewed, and agree with the discharge instructions and disposition.
== END 2019-03-05 11:17 | disposition home or self-care (01) ==
LOC: C.ER 10:21
DX: L23.9 Allergic contact dermatitis, unspecified cause (principal)
CPT/HCPCS: 99283; J8540